=== PATIENT | female | born 1950 | race Caucasian/White ===

== ENCOUNTER 2017-02-23 20:56 | Outpatient (CLI) | payer OTHER | END 2017-02-23 20:57 | disposition EMS.NT | LOC: EMS 20:56 | PROVIDERS: ATTEND Surgery | DX: R40.20 Unspecified coma (principal) ==

== ENCOUNTER 2019-03-06 13:53 | Inpatient (IN) | payer MEDICARE, OTHER ==
--- NOTE | 2019-03-06 14:29 | XRAY Report ---
Reason: L knee pain Procedure Date: 03/06/2019 Accession Number: [id number] / [id number] Procedure: XR - Knee 4 View LT CPT Code: FULL RESULT: EXAM: LEFT KNEE RADIOGRAPHY EXAM DATE: 03/06/2019 02:19 PM. CLINICAL HISTORY: L knee pain. Dir. Fallot on to left kneecap COMPARISON: None. TECHNIQUE: 4 views. FINDINGS: Bones: Mildly comminuted, predominately transverse patellar fracture with between 2-3 cm of distraction between the 2 predominant fragments. Joints: Evidence of a joint effusion. Medial and lateral compartments appear unremarkable. Soft Tissues: Anterior soft tissue swelling. IMPRESSION: 1. Mildly comminuted, substantially displace/distracted patellar fracture. 2. Anterior soft tissue swelling and joint effusion. RADIA
--- NOTE | 2019-03-06 14:50 | ED Physician Documentation ---
PD HPI LOWER EXT INJURY - Stated complaint Stated Complaint: LEFT KNEE PX - Chief complaint Chief Complaint: Ext Problem - History obtained from History obtained from: Patient - History of Present Illness PD HPI LOW EXT INJURY LOCATION: Left, Knee Type of injury: Fall Where injury occurred: Home Timing - onset: Enter time (1300), Yesterday Timing - duration: Days (1) Timing - details: Abrupt onset, Still present Improved by: Rest, Ice, Immobilization Worsened by: Moving, Palpating Associated symptoms: Swelling. No: Weakness, Numbness Contributing factors: No: Anticoagulated, Prior ortho surgery, Prosthetic joint, Work related Similar symptoms before: Has not had sx before Recently seen: Not recently seen - Additional information Additional information: 69-year-old type I diabetic with a fall yesterday in her garage onto concrete has a lot of swelling to the left knee and she is unable to bear weight without significant pain she is unable to straighten her leg. She is fallen 4 times since. She is at home and she has now come into the emergency department for car luation. Review of Systems Constitutional: denies: Fever, Chills, Myalgias, Fatigue Eyes: denies: Decreased vision Ears: denies: Ear pain Nose: reports: Congestion. denies: Rhinorrhea / runny nose Throat: denies: Sore throat Cardiac: denies: Chest pain / pressure, Palpitations Respiratory: denies: Dyspnea, Cough GI: denies: Abdominal Pain, Nausea, Vomiting : denies: Dysuria, Frequency Skin: denies: Rash Musculoskeletal: reports: Extremity pain, Joint pain, Extremity swelling, Joint swelling, Pain with weight bearing. denies: Neck pain, Back pain Neurologic: denies: Generalized weakness, Focal weakness, Numbness PD PAST MEDICAL HISTORY - Past Medical History Endocrine/Autoimmune: Type 1 diabetes - Past Surgical History Past Surgical History: No - Present Medications Home Medications: Ambulatory Orders Medication Instructions Recorded Confirmed Insulin Aspart (Vial) [NovoLOG] 01/24/15 01/24/15 Insulin Glargine,Hum.rec.anlog 14 units SQ DAILY 01/24/15 11/01/15 [Lantus] - Allergies Allergies/Adverse Reactions: Allergies Allergy/AdvReac Type Severity Reaction Status Date / Time No Known Drug Allergies Allergy Verified 11/01/15 08:52 - Social History Does the pt smoke?: No Smoking Status: Never smoker Does the pt drink ETOH?: Yes Does the pt have substance abuse?: No PD ED PE NORMAL - Vitals Vital signs reviewed: Yes (tachy ) - General General: Alert and oriented X 3, No acute distress, Well developed/nourished - HEENT HEENT: Atraumatic, PERRL, EOMI - Neck Neck: Supple, no meningeal sign, No bony TTP - Cardiac Cardiac: RRR, No murmur, Other (tachy to 100) - Respiratory Respiratory: No respiratory distress, Clear bilaterally - Abdomen Abdomen: Soft, Non tender - Back Back: No CVA TTP, No spinal TTP - Derm Derm: Normal color, Warm and dry, No rash - Extremities Extremities: Other (There is a soft tissue defect over the patella on the left with a wide depression. The knee is swollen in general and the patient is unable to extend her lower extremity. The medial and lateral collateral ligaments are stable to testing. distal n/v is intact. ) - Neuro Neuro: Alert and oriented X 3, battery vent plug inserter 2-12 intact, No motor deficit, No sensory deficit, Normal speech Eye Opening: Spontaneous Motor: Obeys Commands Verbal: Oriented GCS Score: 15 - Psych Psych: Normal mood, Normal affect Results - Vitals Vitals: Vital Signs - 24 hr 03/06/19 14:03 Temperature 36.3 C L Heart Rate 102 H Respiratory 20 Rate Blood Pressure 128/79 O2 Saturation 100 Oxygen O2 Source Room air - Rads (name of study) knee Radiology: Prelim report reviewed (Impression: 1. Mildly comminuted, substantially displaced/distracted patellar fracture. 2 Anterior soft tissue swelling and joint effusion.), EMP read indepedently, See rad report PD MEDICAL DECISION MAKING - ED course Complexity details: reviewed results, re-evaluated patient, considered differential, d/w patient, d/w senior professional services consultant (DR. Helm reviews films and asks to have hospitalist admit patient with diabetes for surgery in am. ) ED course: 69-year-old female is had a fall at home landing on her left patella and she has a widely distracted patellar fracture. She is unable to extend her leg. She has had 3 falls since she did this at home. Dr. Helm is consulted in the case and recommends admitting patient to the hospital overnight on the hospitalist service for control of her diabetes and making the patient n.p.o. for preparation for surgery in a.m. Departure - Departure Disposition: ED Place in Observation Clinical Impression: Patellar fracture Qualifiers: Encounter type: initial encounter Fracture type: closed Fracture morphology: transverse Fracture alignment: displaced Laterality: left Qualified Code(s): S82.032A - Displaced transverse fracture of left patella, initial encounter for closed fracture Condition: Stable
[2019-03-06 16:15] LABS: BASOPHILS % (AUTO) 0.3 %; EOSINOPHILS % (AUTO) 0.6 %; HGB - HEMOGLOBIN 12.7 g/dL (12.0-16.0); LYMPHOCYTES % (AUTO) 15.3 %; MEAN CORPUSCULAR HGB CONC 32.2 g/dL (32.0-36.0); MEAN CORPUSCULAR VOLUME 96.1 fL (81.0-99.0); MEAN PLATELET VOLUME 9.3 fL (7.9-10.8); MONOCYTES # (AUTO) 0.6 10^3/uL (0.0-1.0); MONOCYTES % (AUTO) 8.9 %; NEUTROPHILS # (AUTO) 4.9 10^3/uL (1.5-6.6); NEUTROPHILS % (AUTO) 74.6 %; PLT - PLATELET COUNT 269 10^3/uL (130-450); RED CELL DISTRIBUTION WIDTH 12.8 % (12.0-15.0); WHITE BLOOD COUNT 6.5 x10^3/uL (4.8-10.8)
[2019-03-06 16:30] LABS: ALBUMIN 4.3 g/dL (3.2-5.5); ALBUMIN/GLOBULIN RATIO 1.5 (1.0-2.2); BILIRUBIN,TOTAL 0.9 mg/dL (0.2-1.0); CALCIUM 9.2 mg/dL (8.5-10.3); CREATININE 0.9 mg/dL (0.4-1.0); TOTAL PROTEIN 7.2 g/dL (6.7-8.2)
[2019-03-06] MEDS ORDERED: MORPHINE 2 MG/ML CARPUJECT IVP PRN (16:52)
[2019-03-06] MEDS ORDERED: SODIUM CHLORIDE FLUSH 0.9% 10 ML SYRINGE IVP PRN (16:52)
[2019-03-06] MEDS ORDERED: ONDANSETRON 4 MG/2 ML VIAL IVP PRN (16:52)
[2019-03-06] MEDS ORDERED: ZOLPIDEM 5 MG TABLET PO PRN (16:52)
[2019-03-06 17:28] LABS: HB2 TOTAL 12.8 g/dL; HEMOGLOBIN A1C 0.55 g/dL; HEMOGLOBIN A1C % 6.1 % (4.6-6.2)
[2019-03-06] MEDS ORDERED: SODIUM CHLORIDE 0.9% 1,000 ML IV ONE (17:51)
--- NOTE | 2019-03-06 17:52 | HISTORY & PHYSICAL EXAMINATION ---
Chief Complaint - Chief Complaint Chief Complaint: fall and left knee pain History of Present Illness - History of Present Illness HPI Comment/Other: Ms. Jimenez is a 69-year-old female with a PMH significant for type I diabetic, who present ER complain of fall and left knee pain. pt report she had trip and fall on yesterday on her garage onto concrete, and landed on left knee. Pt report she was unable to bear weight and swelling on the left knee. She report she is fallen 4 times after she first had knee injury. Pt denies hitting head or other injuries. she denies any cardiac medical history. Xray of left knee reveals mildly comminuted, substantially displace/distracted patellar fracture, anterior soft tissue swelling and joint effusion. Lat test except slight elevated glucose was unremarkable. pt has no other complaints. Orthopedics was called and planned to have procedure on tomorrow. History - Past Medical History Endocrine/Autoimmune: reports: Type 1 diabetes MRSA Hx?: No - Family & Social History Social History Notes: pt denies hx of cigarette smoker, occasionally alcohol drinker but without alcohol addiciton issur, denies drug problem. - POLST POLST Status: Full Code Meds/Allgy - Home Medications Home Medications: Ambulatory Orders Medication Instructions Recorded Confirmed Insulin Aspart (Vial) [NovoLOG] 2 - 6 unit SQ AC 01/24/15 03/06/19 Insulin Glargine,Hum.rec.anlog 14 units SQ DAILY 01/24/15 03/06/19 [Lantus] - Allergies Allergies/Adverse Reactions: Allergies Allergy/AdvReac Type Severity Reaction Status Date / Time No Known Drug Allergies Allergy Verified 11/01/15 08:52 Review of Systems - Constitutional Constitutional: denies: Fatigue, Fever, Chills, Malaise, Weakness, Poor appetite, Diaphoresis, Night sweats - Eyes Eyes: denies: Pain, Irritation, Amaurosis, Blurred vision, Spots in vision, Field loss, Vision loss, Dipolpia - Ears, Nose & Throat Ears, Nose & Throat: denies: Ear pain, Hearing loss, Hearing aids, Tinnitus, Vertigo, Nasal pain, Nasal discharge, Nosebleeds, Nasal obstruction, Nasal congestion, Postnasal drainage, Dentures, Sore throat, Hoarseness, Mouth lesions, Bleeding gums - Cardiovascular Cariovascular: denies: Irregular heart rate, Palpitations, Chest pain, Edema, Lightheadedness, Syncope, Exertional dyspnea, Decr. exercise tolerance - Respiratory Respiratory: denies: Cough, Sputum production, Wheezing, Snoring, Hemoptysis, Orthopnea, SOB at rest, SOB with exertion - Gastrointestinal Gastrointestinal: denies: Abdominal pain, Abdominal distention, Constipation, Diarrhea, Change in bowel habits, Rectal bleeding, Black stools, Bloody stools, Nausea, Vomiting, Bile emesis, Johnny blood emesis, Coffee grounds emesis, Reflux/heartburn - Genitourinary Genitourinary: denies: Dysuria, Frequency, Urgency, Hematuria, Incontinence, Flank pain, Nocturia, Urethral discharge - Musculoskeletal Musculoskeletal: reports: Limited range of motion, Joint pain, Joint swelling. denies: Muscle pain, Back pain, Muscle aches, Stiffness, Muscle weakness, Gout - Integumentary Integumentary: denies: Rash, Pruritis, Lesions, Dryness, Lumps, Acne, Pigment changes, Nail changes - Neurological Neurological: denies: General weakness, Focal weakness, Headache, Dizziness, Nu mbness, Memory problems, Pre-existing deficit, Abnormal gait, Seizures, Incoordination, Slurred speech - Psychiatric Psychiatric: denies: Depression, Anxiety, Suicidal, Delusions, Hallucinations, Homicidal - Endocrine Endocrine: denies: Polyuria, Polydypsia, Polyphagia, Intolerance to cold - Hematologic/Lymphatic Hematologic/Lymphatic: denies: Anemia, Bruising, Petechiae, Blood clots, Lymphadenopathy, Bleeding tendencies Exam - Vital Signs Vital Signs: Vital Signs x48h Temp Pulse Resp BP Pulse Ox 03/06/19 16:25 36.7 C 76 20 128/62 100 03/06/19 14:03 36.3 C L 102 H 20 128/79 100 - Physical Exam General Appearance: positive: No acute distress, Alert. negative: Lethargic Eyes Bilateral: positive: Normal inspection, PERRL, No lid inflammation, Conjunctivae nml ENT: positive: ENT inspection nml, Pharynx nml, No signs of dehydration. negative: Purulent nasal drainage, Pharyngeal erythema, Oral lesions Neck: positive: Nml inspection, Thyroid nml, No JVD, Trachea midline. negative: Thyromegaly, Lymphadenopathy (R), Lymphadenopathy (L), Stiff neck, Swelling/bruising, Tracheal deviation Respiratory: positive: Chest non-tender, No respiratory distress, Breath sounds nml. negative: Wheezes, Rales, Rhonchi Cardiovascular: positive: Regular rate & rhythm, No murmur, No gallop. negative: Irregularly irregular, Extrasystoles, Tachycardia, Bradycardia, JVD present, Systolic murmur, Diastolic murmur Peripheral Pulses: positive: 2+ Abdomen: positive: Non-tender, No organomegaly, Nml bowel sounds, No distention. negative: Tenderness, Guarding, Rebound Back: positive: Nml inspection. negative: CVA tenderness (R), CVA tenderness (L) Skin: positive: Color nml, No rash, Warm, Dry. negative: Cyanosis, Diaphoresis, Pallor, Skin rash Extremities: positive: Other (left knee with mild to moderate swelling but without erythema and Limited ROM on left knee.). negative: Full ROM, Pedal edema, Calf tenderness, Autumn's sign/cords Neurologic/Psychiatric: positive: Oriented x3, Sensation nml, Mood/affect nml. negative: Weakness, Sensory loss, Facial droop, Slurred/abnml speech, Depressed mood/affect Sepsis Event Note (H) - Evaluation Current Stage of Sepsis: Ruled out Conclusion/Plan - Problem List (1) Patellar fracture Conclusion/Plan: pt had fall, and landed on left knee. left knee has mild to moderate swelling, pt can not bear weight on left leg. Xray reveals patellar fracture. orthopedics surgeon was called, plan to have procedure on tomorrow pain control NPO except meds after midnight IVF after midnight PT/OT after surgery DVT prophylaxis per surgeon, now with lovenox pt has no cardiac medical history, revised cardiac risk index for preoperative risk suggest 6% Qualifiers: Encounter type: initial encounter Fracture type: closed Fracture morphology: transverse Fracture alignment: displaced Laterality: left Qualified Code(s): S82.032A - Displaced transverse fracture of left patella, initial encounter for closed fracture (2) Diabetes type 1, controlled Conclusion/Plan: pt has hx of DM1, she take 14 lantus on daily, reconcile lantus start slide scale, ACHS, hypoglycemia protocol check A1C (3) Fall Conclusion/Plan: fall precaution, now pain control as well. consult with PT/OT (4) Full code status Conclusion/Plan: pt request full code clearly - Lab Results Fish Bones: 03/06/19 16:07 03/06/19 16:07 Core Measures - Anticipated LOS I expect patient to be DC'd or transferred within 96 hours.: Yes - DVT/VTE - Prophylaxis VTE/DVT Device ordered at admit?: Yes VTE/DVT Prophylaxis med ordered at admit?: Yes
--- NOTE | 2019-03-06 18:47 | PROVIDER PROGRESS NOTE ---
Subjective - Prog Note Date Prog Note Date: 03/06/19 Prog Note Time: 18:41 - Subjective Pt reports feeling: Worse (Painful left knee after a fall on flexed knee) Objective - Vital Signs/Intake & Output Vital Signs: Vital Signs x48h Temp Pulse Pulse Resp BP BP Pulse Ox 03/06/19 17:52 36.8 C 91 20 128/77 100 03/06/19 16:25 36.7 C 76 20 128/62 100 03/06/19 14:03 36.3 C L 102 H 20 128/79 100 - Lab Results Fish Bones: 03/06/19 16:07 03/06/19 16:07 Other Labs: Lab Results x24hrs 03/06/19 03/06/19 03/06/19 Range/Units 16:16 16:07 16:07 WBC (4.8-10.8) x10^3/uL RBC (4.20-5.40) 10^6/uL Hgb (12.0-16.0) g/dL Hct (37.0-47.0) % MCV (81.0-99.0) fL MCH (27.0-31.0) pg MCHC (32.0-36.0) g/dL RDW (12.0-15.0) % Plt Count (130-450) 10^3/uL MPV (7.9-10.8) fL Neut # (Auto) (1.5-6.6) 10^3/uL Lymph # (Auto) (1.5-3.5) 10^3/uL [place] # (Auto) (0.0-1.0) 10^3/uL Eos # (Auto) (0.0-0.7) 10^3/uL Baso # (Auto) (0.0-0.1) 10^3/uL Absolute Nucleated RBC x10^3/uL Nucleated RBC % /100WBC Sodium 140 (135-145) mmol/L Potassium 3.9 (3.5-5.0) mmol/L Chloride 100 L (101-111) mmol/L Carbon Dioxide 28 (21-32) mmol/L Anion Gap 12.0 (6-13) BUN 13 (6-20) mg/dL Creatinine 0.9 (0.4-1.0) mg/dL Estimated GFR (MDRD) 62 L (>89) Glucose 187 H (70-100) mg/dL Glycated Hemoglobin 6.1 (4.6-6.2) % Estim Average Glucose 128 H (70-100) Calcium 9.2 (8.5-10.3) mg/dL Total Bilirubin 0.9 (0.2-1.0) mg/dL AST 23 (10-42) IU/L ALT 17 (10-60) IU/L Alkaline Phosphatase 57 (42-121) IU/L Troponin I High Sens 6.4 (2.3-14.8) pg/mL Total Protein 7.2 (6.7-8.2) g/dL Albumin 4.3 (3.2-5.5) g/dL Globulin 2.9 (2.1-4.2) g/dL Albumin/Globulin Ratio 1.5 (1.0-2.2) 03/06/19 Range/Units 16:07 WBC 6.5 (4.8-10.8) x10^3/uL RBC 4.10 L (4.20-5.40) 10^6/uL Hgb 12.7 (12.0-16.0) g/dL Hct 39.4 (37.0-47.0) % MCV 96.1 (81.0-99.0) fL MCH 31.0 (27.0-31.0) pg MCHC 32.2 (32.0-36.0) g/dL RDW 12.8 (12.0-15.0) % Plt Count 269 (130-450) 10^3/uL MPV 9.3 (7.9-10.8) fL Neut # (Auto) 4.9 (1.5-6.6) 10^3/uL Lymph # (Auto) 1.0 L (1.5-3.5) 10^3/uL [place] # (Auto) 0.6 (0.0-1.0) 10^3/uL Eos # (Auto) 0.0 (0.0-0.7) 10^3/uL Baso # (Auto) 0.0 (0.0-0.1) 10^3/uL Absolute Nucleated RBC 0.00 x10^3/uL Nucleated RBC % 0.0 /100WBC Sodium (135-145) mmol/L Potassium (3.5-5.0) mmol/L Chloride (101-111) mmol/L Carbon Dioxide (21-32) mmol/L Anion Gap (6-13) BUN (6-20) mg/dL Creatinine (0.4-1.0) mg/dL Estimated GFR (MDRD) (>89) Glucose (70-100) mg/dL Glycated Hemoglobin (4.6-6.2) % Estim Average Glucose (70-100) Calcium (8.5-10.3) mg/dL Total Bilirubin (0.2-1.0) mg/dL AST (10-42) IU/L ALT (10-60) IU/L Alkaline Phosphatase (42-121) IU/L Troponin I High Sens (2.3-14.8) pg/mL Total Protein (6.7-8.2) g/dL Albumin (3.2-5.5) g/dL Globulin (2.1-4.2) g/dL Albumin/Globulin Ratio (1.0-2.2) - Other Results/Comments Other Results/Comments: EXAM: Left knee: markedly swollen and ecchymotic. Palpable gap in mid- patella. Ligament - stable. N/V ok distally Sepsis Event Note (H) - Evaluation Current Stage of Sepsis: Ruled out Assessment/Plan - Problem List (1) Patellar fracture Impression: Closed, distracted left patella fracture PLAN: To OR in AM for tension band wiring of fracture. Risk and benefits of surgery explained and all questions answered. Wish to proceed with surgery. Leg marked. Consent signed. FULL NOTE DICTATED Qualifiers: Encounter type: initial encounter Fracture type: closed Fracture morphology: transverse Fracture alignment: displaced Laterality: left Qualified Code(s): S82.032A - Displaced transverse fracture of left patella, initial encounter for closed fracture
--- NOTE | 2019-03-06 19:03 | CONSULTATION NOTE ---
DATE OF SERVICE: 03/06/2019 Physician: Aj Helm MD REFERRING PHYSICIAN: Dr. Dave Roche of the Emergency Room Department. CHIEF COMPLAINT: "My left knee hurts." HISTORY OF PRESENT ILLNESS: Patient is a 69-year-old female, type 1 diabetic, who is here visiting family from [facility] in the [facility]. She apparently fell onto a flexed knee left side o n the cement floor of a garage yesterday injuring her left knee. She noted some immediate swelling a nd mild ecchymosis around the anterior aspect of the left knee. Her pain and swelling did not resolv e after observation overnight. She has been able to walk on her knee, but it has given out several w hile she was walking after this injury. She denies any prior problems with her knee. No other injur ies occurred. There has been no loss of consciousness or nausea, vomiting, or other problems. No di stal weakness or numbness noted either. PHYSICAL EXAMINATION: The left knee today shows 2+ swelling in the anterior aspect of the knee. Min imal knee effusion appreciated, however. There is no break in the skin, though there is some mild ec chymoses in the medial parapatellar region. The patient has a palpable gap in her patella on palpati on. This is somewhat tender as well. Range of motion was not tested in view of her injury. Ligamen ts, however, appear to be stable on testing today. Neurovascularly intact distally. Range of motion also was not performed in lieu of her injury. X-RAYS: Show a mild comminution transverse mid patellar fracture with marked distraction of the frag ments. ASSESSMENT 1. Closed, distracted, mildly comminuted transverse left mid patellar fracture. 2. Type 1 diabetic. PLAN: Since the patient had a milkshake at around noon today, we will plan on proceeding with surgic al fixation of her fracture in the morning. We will plan on doing a tension band wiring of her fract ure after we were able to reduce this in the operating room. The diagnosis as well as treatment opti ons were explained to the patient and her . The risks and benefits of surgery were also expla ined, including anesthesia risks, infection, blood loss, nerve damage, hardware failure, continued pa in in the knee. All of her questions were answered. She wishes to proceed with surgery as planned. Her leg was then marked. Consent signed. TD: 03/06/2019 18:38
[2019-03-06] MEDS: INSULIN ASPART 300 UNIT/3 ML PEN SUBQ SCH ×2 (19:05→21:47)
[2019-03-06] MEDS: SODIUM CHLORIDE FLUSH 0.9% 10 ML SYRINGE IVP SCH (19:31)
[2019-03-06] MEDS: FAMOTIDINE 20 MG TABLET PO SCH (21:35)
[2019-03-07] MEDS: oxyCODONE 5 MG TABLET PO PRN ×2 (00:59→05:00)
[2019-03-07] MEDS: SODIUM CHLORIDE 0.9% 1,000 ML IV SCH ×3 (01:01→15:59)
[2019-03-07] MEDS: SODIUM CHLORIDE FLUSH 0.9% 10 ML SYRINGE IVP SCH ×3 (01:01→16:00)
[2019-03-07 05:16] LABS: BASOPHILS % (AUTO) 0.9 %; EOSINOPHILS # (AUTO) 0.1 10^3/uL (0.0-0.7); EOSINOPHILS % (AUTO) 3.1 %; HGB - HEMOGLOBIN 11.1 g/dL (12.0-16.0); LYMPHOCYTES # (AUTO) 1.2 10^3/uL (1.5-3.5); LYMPHOCYTES % (AUTO) 25.2 %; MEAN CORPUSCULAR HEMOGLOBIN 30.6 pg (27.0-31.0); MEAN CORPUSCULAR HGB CONC 31.9 g/dL (32.0-36.0); MEAN CORPUSCULAR VOLUME 95.9 fL (81.0-99.0); MEAN PLATELET VOLUME 9.6 fL (7.9-10.8); MONOCYTES # (AUTO) 0.6 10^3/uL (0.0-1.0); MONOCYTES % (AUTO) 13.3 %; NEUTROPHILS # (AUTO) 2.6 10^3/uL (1.5-6.6); NEUTROPHILS % (AUTO) 57.3 %; PLT - PLATELET COUNT 231 10^3/uL (130-450); RED BLOOD COUNT 3.63 10^6/uL (4.20-5.40); RED CELL DISTRIBUTION WIDTH 12.5 % (12.0-15.0); WHITE BLOOD COUNT 4.6 x10^3/uL (4.8-10.8)
[2019-03-07 05:25] LABS: CALCIUM 8.6 mg/dL (8.5-10.3); CREATININE 0.8 mg/dL (0.4-1.0)
[2019-03-07] MEDS: INSULIN ASPART 300 UNIT/3 ML PEN SUBQ SCH ×4 (07:55→21:28)
[2019-03-07] MEDS: INSULIN GLARGINE 300 UNIT/3 ML PEN SUBQ SCH (08:26)
[2019-03-07] MEDS: FAMOTIDINE 20 MG TABLET PO SCH (08:26)
[2019-03-07] MEDS: POLYETHYLENE GLYCOL 3350 17 GM PACKET PO SCH ×2 (08:32→21:29)
[2019-03-07] MEDS ORDERED: INSULIN GLARGINE 300 UNIT/3 ML PEN SUBQ SCH (09:00)
--- NOTE | 2019-03-07 09:47 | ANESTHESIA ---
Pre-Anesthesia VS, & Labs - Diagnosis Left patellar fracture - Procedure Left ORIF patellar fracture Vital Signs: Temp Pulse Resp BP Pulse Ox 36.8 C 76 10 L 117/66 93 03/07/19 08:00 03/07/19 08:00 03/07/19 08:00 03/07/19 08:00 03/07/19 08:00 Height 5 ft 1 in Weight (kg) 55 kg Body Mass Index 24.1 - NPO >8 hours - Is Patient ?: Not Applicable - Lab Results Current Lab Results: Laboratory Tests 03/07/19 07:51: POC Whole Bld Glucose 128 H 03/07/19 04:50: Sodium 140, Potassium 4.0, Chloride 105, Carbon Dioxide 27, Anion Gap 8.0, BUN 14, Creatinine 0.8, Estimated GFR (MDRD) 72 L, Glucose 120 H, Calcium 8.6, Magnesium 2.0 03/07/19 04:50: WBC 4.6 L, RBC 3.63 L, Hgb 11.1 L, Hct 34.8 L, MCV 95.9, MCH 30.6, MCHC 31.9 L, RDW 12.5, Plt Count 231, MPV 9.6, Neut # (Auto) 2.6, Lymph # (Auto) 1.2 L, [place] # (Auto) 0.6, Eos # (Auto) 0.1, Baso # (Auto) 0.0, Absolute Nucleated RBC 0.00, Nucleated RBC % 0.0 03/06/19 21:40: POC Whole Bld Glucose 196 H 03/06/19 16:16: Glycated Hemoglobin 6.1, Estim Average Glucose 128 H 03/06/19 16:07: Troponin I High Sens 6.4 03/06/19 16:07: Sodium 140, Potassium 3.9, Chloride 100 L, Carbon Dioxide 28, Anion Gap 12.0, BUN 13, Creatinine 0.9, Estimated GFR (MDRD) 62 L, Glucose 187 H , Calcium 9.2, Total Bilirubin 0.9, AST 23, ALT 17, Alkaline Phosphatase 57, Total Protein 7.2, Albumin 4.3, Globulin 2.9, Albumin/Globulin Ratio 1.5 03/06/19 16:07: WBC 6.5, RBC 4.10 L, Hgb 12.7, Hct 39.4, MCV 96.1, MCH 31.0, MCHC 32.2, RDW 12.8, Plt Count 269, MPV 9.3, Neut # (Auto) 4.9, Lymph # (Auto) 1.0 L, [place] # (Auto) 0.6, Eos # (Auto) 0.0, Baso # (Auto) 0.0, Absolute Nucleated RBC 0.00, Nucleated RBC % 0.0 Fish Bones: 03/07/19 04:50 03/07/19 04:50 Home Medications and Allergies Active Medications Enoxaparin Sodium (Lovenox) 40 mg SUBQ DAILY [facility] Famotidine (Pepcid) 20 mg PO DAILY [facility] Last Admin: 03/07/19 08:26 Dose: 20 mg Sodium Chloride (Normal Saline 0.9%) 1,000 mls @ 100 mls/hr IV .Q10H [facility] Stop: 03/07/19 20:59 Last Admin: 03/07/19 01:01 Dose: 100 mls/hr Cefazolin Sodium 2 gm/ Sodium (Chloride) 100 mls @ 200 mls/hr IV ONCE [facility] Stop: 03/07/19 15:01 Insulin Aspart (Novolog) 1 - 9 unit SUBQ 0800,1200,1700,2100 [facility]; Protocol Last Admin: 03/07/19 07:55 Dose: Not Given Insulin Glargine (Lantus Solostar) 10 unit SUBQ DAILY [facility] Last Admin: 03/07/19 08:26 Dose: 10 unit Morphine Sulfate (Morphine (Carpuject)) 2 mg IVP Q2HR PRN PRN Reason: Pain 8 to 10 Ondansetron HCl (Zofran Inj) 4 mg IVP Q6HR PRN PRN Reason: Nausea / Vomiting Last Admin: 03/07/19 08:26 Dose: 4 mg Oxycodone HCl (Roxicodone) 5 mg PO Q4HR PRN PRN Reason: Pain 5 to 7 Last Admin: 03/07/19 05:00 Dose: 5 mg Polyethylene Glycol (Miralax) 17 gm PO DAILY [facility] Last Admin: 03/07/19 08:32 Dose: Not Given Sodium Chloride (Normal Saline Flush 0.9%) 10 ml IVP PRN PRN PRN Reason: NEEDED PER PROVIDER ORDERS Sodium Chloride (Normal Saline Flush 0.9%) 10 ml IVP 0100,0900,1700 [facility] Last Admin: 03/07/19 08:32 Dose: Not Given Zolpidem Tartrate (Ambien) 5 mg PO QPM PRN PRN Reason: Insomnia Insulin Aspart (Vial) [NovoLOG] 2 - 6 unit SQ AC 01/24/15 Insulin Glargine,Hum.rec.anlog [Lantus] 14 units SQ DAILY 01/24/15 Allergies/Adverse Reactions: Allergies Allergy/AdvReac Type Severity Reaction Status Date / Time No Known Drug Allergies Allergy Verified 11/01/15 08:52 Anes History & Medical History - Anesthetic History Anesthesia Complications: reports: No previous complications - Medical History Cardiovascular: reports: None Pulmonary: reports: None Gastrointestinal: reports: None Urinary: reports: None Neuro: reports: None Musculoskeletal: reports: None Endocrine/Autoimmune: reports: Type 1 diabetes (for 37 years) Blood Disorders: reports: None Skin: reports: None Smoking Status: Former smoker (37 years ago) Psychosocial: reports: Alcohol (2 glasses of wine per day) - Surgical History Eyes Ears Nose Throat (EENT): Other (thyroid nodule removal) Orthopedic: Other (right arm ORIF fracture) Plan Anesthesia Type: General, Spinal Consent for Procedure(s) Verified and Reviewed: Yes Code Status: Attempt Resuscitation ASA classification: 2-Mild systemic disease Is this case an emergency?: No
[2019-03-07] MEDS ORDERED: ceFAZolin 2 GM in SODIUM CHLORIDE 0.9% MINIBAG 100 ML IV SCH (10:00)
[2019-03-07] MEDS ORDERED: ceFAZolin 1 GM VIAL ONE (12:39)
[2019-03-07] MEDS ORDERED: LACTATED RINGERS 1,000 ML IV ONE ×2 (12:52→14:00)
[2019-03-07] MEDS ORDERED: ENOXAPARIN 40 MG/0.4 ML SYRINGE SUBQ SCH (13:00)
--- NOTE | 2019-03-07 13:18 | PROVIDER PROGRESS NOTE ---
Subjective - Prog Note Date Prog Note Date: 03/07/19 Prog Note Time: 13:15 - Subjective Pt reports feeling: No change Subjective: Rylee is looking forward to getting her surgery done later today. She has ongoing nausea with intermittent emesis. She has no other new symptoms. Current Medications - Current Medications Current Medications: Active Medications Acetaminophen (Tylenol) 975 mg PO Q6HR JASON Aspirin (Rogelio) 325 mg PO BIDWM JASON Calcium Carbonate/Glycine (Tums) 500 mg PO BID JASON Cholecalciferol (Vitamin D3) 2,000 unit PO DAILY JASON Famotidine (Pepcid) 20 mg PO DAILY JASON Sodium Chloride (Normal Saline 0.9%) 1,000 mls @ 100 mls/hr IV .Q10H JASON Insulin Aspart (Novolog) 1 - 9 unit SUBQ 0800,1200,1700,2100 JASON; Protocol Insulin Glargine (Lantus Solostar) 10 unit SUBQ DAILY JASON Morphine Sulfate (Morphine (Carpuject) 2 mg IVP Q2HR PRN Ondansetron HCl (Zofran Inj) 4 mg IVP Q6HR PRN Oxycodone HCl (Roxicodone) 5 mg PO Q4HR PRN Polyethylene Glycol (Miralax) 17 gm PO DAILY JASON Prochlorperazine Edisylate (Compazine Inj) 10 mg IVP Q6HR PRN Zolpidem Tartrate (Ambien) 5 mg PO QPM PRN HOME meds: Insulin Aspart (Vial) [NovoLOG] 2 - 6 unit SQ AC 01/24/15 Insulin Glargine,Hum.rec.anlog [Lantus] 14 units SQ DAILY 01/24/15 Objective - Vital Signs/Intake & Output Reviewed Vital Signs: Yes Vital Signs: Vital Signs x48h Temp Pulse Resp BP Pulse Ox 03/07/19 08:00 36.8 C 76 10 L 117/66 93 Intake & Output: Intake & Output 03/04/19 03/05/19 03/06/19 03/07/19 23:59 23:59 23:59 23:59 Intake Total 590 998.333 Balance 590 998.333 - Objective General Appearance: positive: No acute distress, Alert Eyes Bilateral: positive: PERRL, No lid inflammation ENT: positive: Pharynx nml, No signs of dehydration Neck: positive: Thyroid nml, No JVD, Trachea midline Respiratory: positive: Chest non-tender, No respiratory distress, Breath sounds nml Cardiovascular: positive: Regular rate & rhythm, No murmur, No gallop Peripheral Pulses: 1+ Radial (R), 1+ Radial (L) Abdomen: positive: Non-tender, Nml bowel sounds Back: positive: Nml inspection Skin: positive: Color nml, No rash, Warm, Dry Extremities: positive: Pedal edema, Joint swelling (left knee swelling) Neurologic/Psychiatric: positive: Oriented x3, CN's nml (2-12), Motor nml, Sensation nml, Depressed mood/affect Reflexes: Bicep (R): 3+, Bicep (L): 3+ - Lab Results Fish Bones: 03/08/19 05:25 03/08/19 05:25 Other Labs: Lab Results x24hrs 03/07/19 03/07/19 03/07/19 Range/Units 11:27 07:51 04:50 WBC (4.8-10.8) x10^3/uL RBC (4.20-5.40) 10^6/uL Hgb (12.0-16.0) g/dL Hct (37.0-47.0) % MCV (81.0-99.0) fL MCH (27.0-31.0) pg MCHC (32.0-36.0) g/dL RDW (12.0-15.0) % Plt Count (130-450) 10^3/uL MPV (7.9-10.8) fL Neut # (Auto) (1.5-6.6) 10^3/uL Lymph # (Auto) (1.5-3.5) 10^3/uL [place] # (Auto) (0.0-1.0) 10^3/uL Eos # (Auto) (0.0-0.7) 10^3/uL Baso # (Auto) (0.0-0.1) 10^3/uL Absolute Nucleated RBC x10^3/uL Nucleated RBC % /100WBC Sodium 140 (135-145) mmol/L Potassium 4.0 (3.5-5.0) mmol/L Chloride 105 (101-111) mmol/L Carbon Dioxide 27 (21-32) mmol/L Anion Gap 8.0 (6-13) BUN 14 (6-20) mg/dL Creatinine 0.8 (0.4-1.0) mg/dL Estimated GFR (MDRD) 72 L (>89) Glucose 120 H (70-100) mg/dL POC Whole Bld Glucose 173 H 128 H (70 - 100) mg/dL Glycated Hemoglobin (4.6-6.2) % Estim Average Glucose (70-100) Calcium 8.6 (8.5-10.3) mg/dL Magnesium 2.0 (1.7-2.8) mg/dL Total Bilirubin (0.2-1.0) mg/dL AST (10-42) IU/L ALT (10-60) IU/L Alkaline Phosphatase (42-121) IU/L Troponin I High Sens (2.3-14.8) pg/mL Total Protein (6.7-8.2) g/dL Albumin (3.2-5.5) g/dL Globulin (2.1-4.2) g/dL Albumin/Globulin Ratio (1.0-2.2) 03/07/19 03/06/19 03/06/19 Range/Units 04:50 21:40 16:16 WBC 4.6 L (4.8-10.8) x10^3/uL RBC 3.63 L (4.20-5.40) 10^6/uL Hgb 11.1 L (12.0-16.0) g/dL Hct 34.8 L (37.0-47.0) % MCV 95.9 (81.0-99.0) fL MCH 30.6 (27.0-31.0) pg MCHC 31.9 L (32.0-36.0) g/dL RDW 12.5 (12.0-15.0) % Plt Count 231 (130-450) 10^3/uL MPV 9.6 (7.9-10.8) fL Neut # (Auto) 2.6 (1.5-6.6) 10^3/uL Lymph # (Auto) 1.2 L (1.5-3.5) 10^3/uL [place] # (Auto) 0.6 (0.0-1.0) 10^3/uL Eos # (Auto) 0.1 (0.0-0.7) 10^3/uL Baso # (Auto) 0.0 (0.0-0.1) 10^3/uL Absolute Nucleated RBC 0.00 x10^3/uL Nucleated RBC % 0.0 /100WBC Sodium (135-145) mmol/L Potassium (3.5-5.0) mmol/L Chloride (101-111) mmol/L Carbon Dioxide (21-32) mmol/L Anion Gap (6-13) BUN (6-20) mg/dL Creatinine (0.4-1.0) mg/dL Estimated GFR (MDRD) (>89) Glucose (70-100) mg/dL POC Whole Bld Glucose 196 H (70 - 100) mg/dL Glycated Hemoglobin 6.1 (4.6-6.2) % Estim Average Glucose 128 H (70-100) Calcium (8.5-10.3) mg/dL Magnesium (1.7-2.8) mg/dL Total Bilirubin (0.2-1.0) mg/dL AST (10-42) IU/L ALT (10-60) IU/L Alkaline Phosphatase (42-121) IU/L Troponin I High Sens (2.3-14.8) pg/mL Total Protein (6.7-8.2) g/dL Albumin (3.2-5.5) g/dL Globulin (2.1-4.2) g/dL Albumin/Globulin Ratio (1.0-2.2) 03/06/19 03/06/19 03/06/19 Range/Units 16:07 16:07 16:07 WBC 6.5 (4.8-10.8) x10^3/uL RBC 4.10 L (4.20-5.40) 10^6/uL Hgb 12.7 (12.0-16.0) g/dL Hct 39.4 (37.0-47.0) % MCV 96.1 (81.0-99.0) fL MCH 31.0 (27.0-31.0) pg MCHC 32.2 (32.0-36.0) g/dL RDW 12.8 (12.0-15.0) % Plt Count 269 (130-450) 10^3/uL MPV 9.3 (7.9-10.8) fL Neut # (Auto) 4.9 (1.5-6.6) 10^3/uL Lymph # (Auto) 1.0 L (1.5-3.5) 10^3/uL [place] # (Auto) 0.6 (0.0-1.0) 10^3/uL Eos # (Auto) 0.0 (0.0-0.7) 10^3/uL Baso # (Auto) 0.0 (0.0-0.1) 10^3/uL Absolute Nucleated RBC 0.00 x10^3/uL Nucleated RBC % 0.0 /100WBC Sodium 140 (135-145) mmol/L Potassium 3.9 (3.5-5.0) mmol/L Chloride 100 L (101-111) mmol/L Carbon Dioxide 28 (21-32) mmol/L Anion Gap 12.0 (6-13) BUN 13 (6-20) mg/dL Creatinine 0.9 (0.4-1.0) mg/dL Estimated GFR (MDRD) 62 L (>89) Glucose 187 H (70-100) mg/dL POC Whole Bld Glucose (70 - 100) mg/dL Glycated Hemoglobin (4.6-6.2) % Estim Average Glucose (70-100) Calcium 9.2 (8.5-10.3) mg/dL Magnesium (1.7-2.8) mg/dL Total Bilirubin 0.9 (0.2-1.0) mg/dL AST 23 (10-42) IU/L ALT 17 (10-60) IU/L Alkaline Phosphatase 57 (42-121) IU/L Troponin I High Sens 6.4 (2.3-14.8) pg/mL Total Protein 7.2 (6.7-8.2) g/dL Albumin 4.3 (3.2-5.5) g/dL Globulin 2.9 (2.1-4.2) g/dL Albumin/Globulin Ratio 1.5 (1.0-2.2) ABX Reporting Has patient been on IV antibiotics over the past 48 hours?: No Assessment/Plan - Problem List (1) Patellar fracture Impression: -The patient had a mechanical fall in her garage while wearing crock shoes creating a very slippery surface. -She states that she landed directly on her left knee -Since the fall her left knee has had mild to moderate swelling and she could not bear weight on her left leg -Imaging confirmed a substantial displaced patellar fracture -Dr. Helm, orthopedic surgery is planning for surgery this afternoon Plan: Continue with pain control, NPO except meds until after surgery, continue IVFs, PT/OT after surgery, DVT prophylaxis per surgery Fall -Patient states that she had a mechanical fall in which she was in her garage (slippery floors), was wearing crock shoes and fell on her left knee -She states that she read on the internet that an injury to the knee should resolve in about 3 days, if not seek medical attention Plan: Continue with fall precautions, symptom management, follow post-op recommendations as per orthopedic surgery, await post-op PT/OT evaluation Nausea with vomiting -Started shortly after admission -Suspect from trauma, stress Plan: Continue to treat symptoms with Zofran, continue IVFs, monitor for improvement Alcohol use -Patient admits to drinking 1-2 glasses of red wine nightly -She feels that she has gone several days without any in the recent past -No prominent history of alcoholism Plan: Watch for withdrawal symptoms, especially if the patient stays greater than 48-72 hours Diabetes type 1, controlled -Hemoglobin A1C shows good control at 6.1% -Her usual schedule at home is Lantus 14 units in the AM, and carb counting to determine rapid acting coverage Plan: Continue carb controlled diet, SSI, Lantus at 10 units, and blood sugar checks, monitor for hypoglycemia Osteoporosis -Patient has a known history of this, first diagnosed in 2012 via a bone density survey -Likely the most likely contributing cause of this injury Plan: Continue to monitor, continue D3, suggest Fosomax, unless prior use Qualifiers: Qualified Code(s): S82.032A - Displaced transverse fracture of left patella, initial encounter for closed fracture
[2019-03-07] MEDS ORDERED: BUPIVACAINE 0.5%-EPI 1:200000 PF 10 ML VIAL ONE (13:42)
[2019-03-07] MEDS ORDERED: BUPIVACAINE 0.5%-EPI 1:200000 PF 30 ML VIAL SUBQ ONE (13:43)
--- NOTE | 2019-03-07 14:01 | OPERATIVE REPORT ---
Operative Report - General Admit Date: 03/06/19 Procedure Date: 03/07/19 Planned Procedure: ORIF of left patella fracture with tension band wire technique Pre-Op Diagnosis: Distracted left patella fracture Procedure Performed: ORIF left patella fracture with tension band wire technique Post Op Diagnosis: Same - Procedure Note Primary Surgeon: Leslie Helm MD Anesthesia Provider: Vinicius Kemp CRNA Anesthesia Technique: General LMA IV Fluids (mL): 800 Estimated Blood Loss (mL): 50 Complications: None - Other Other Information/Narrative: TT: 71 min
[2019-03-07] MEDS ORDERED: ACETAMINOPHEN 325 MG TABLET PO PRN (14:05)
[2019-03-07] MEDS ORDERED: ACETAMINOPHEN 1,000 MG/100 ML 100 ML IV PRN (14:05)
[2019-03-07] MEDS ORDERED: ONDANSETRON 4 MG/2 ML VIAL IVP PRN (14:05)
[2019-03-07] MEDS ORDERED: HYDROmorphone 0.5 MG/0.5 ML SYRINGE ONE (14:58)
[2019-03-07] MEDS ORDERED: ACETAMINOPHEN 1,000 MG/100 ML 100 ML IV ONE (14:58)
--- NOTE | 2019-03-07 15:16 | OPERATIVE REPORT ---
DATE OF SERVICE: 03/07/2019 Physician: Aj Helm MD PREOPERATIVE DIAGNOSIS: Distracted, displaced, closed left patellar fracture. POSTOPERATIVE DIAGNOSIS: Distracted, displaced, closed left patellar fracture. PROCEDURE PERFORMED: Open reduction and internal fixation of left patellar fracture using tension ba nd wire technique. SURGEON: Aj Helm MD ANESTHESIA: General. DESCRIPTION OF PROCEDURE: Patient was taken to the operating room on the morning of 03/07/2019, wher e she was placed under a general anesthetic in the supine position. We then applied a thigh pneumati c tourniquet to the left lower extremity. We then prepared and draped the left knee free in the usua l fashion for our procedure. After gravity exsanguination of the limb, we inflated the thigh pneumat ic tourniquet to 350 mmHg pressure. We then made a longitudinal anterior skin incision overlying the patellar fracture. We dissected down to the fracture and evacuated the fracture hematoma. We then irrigated the wound with saline. We inspected the joint and saw no other intraarticular pathology. The joint was also irrigated. At this point, we then used a diaz elevator to remove the periosteum of f the edges of both the proximal and distal patellar fracture fragment. We then did an open reductio n of the patellar fracture and held it in place with 2 towel clip reduction clamps. Fluoroscopic vie w in AP and lateral projection showed a good reduction of our fracture. Next, we proceeded to place 2 longitudinal 0.062 inch smooth Frederick wires parallel to each other through the patella from infe rior to superior direction. Fluoroscopic views again showed the reduction still to be maintained of the fracture. It also showed satisfactory position of our K-wires in an extraarticular fashion trans versely in the fracture and nearly parallel. At this point, the lateral view was inspected and again showed good reduction of the fracture in the lateral position with the articulating surface of the p atella reestablished with minimal step-off. Satisfied with this reduction, we then placed a figure-o f-eight #18 stainless steel wire around both the proximal and distal end of our K-wire pins and tight ened our mxkodk-vb-evldl wire. Fluoroscopic views in AP and lateral projection showed again maintena nce of the fracture reduction and a better compression of our fracture. The articulating surface and lateral view was also contiguous this at this point as well. We then cut the pins proximally and di stally proud and bent them to 90 degrees away from the direction of the skin. Also, we cut the wire loop that was used in tightening of our [id number] wire loop proud. The middle knot was also tu rned into the patella and away from the skin. Our final fluoroscopic views in AP and lateral project ion again showed a good fracture reduction and satisfactory placement of all hardware. We irrigated the wound out thoroughly with saline. We then closed the wound in layers using first baseball a type stitch of 0 Polysorb to repair the medial and lateral retinacular tears about the patella. Once the retinacular tears were repaired medially and laterally, we then closed the subcutaneous tissue using buried simple stitches of 3-0 Polysorb. Finally, skin tk were used to approximate the skin edg e. We injected then approximately 12 mL of 0.5% Marcaine with epinephrine to provide incisional anes thesia postoperatively. It should be noted that we did deflate the tourniquet after closing the woun d. We then dressed the wound with Xeroform gauze, 4 x 4's, Kerlix, and an Pal wrap. The leg was the n placed in a knee immobilizer with the knee in near extension. Patient was then transferred off the OR table and taken to the recovery room in satisfactory condition. ESTIMATED BLOOD LOSS: 50 mL REPLACEMENT: 800 mL crystalloid. TOURNIQUET TIME: 71 minutes. INTRAOPERATIVE COMPLICATIONS: None. PLAN: Patient may go weightbearing as tolerated with the knee in a knee immobilizer. We will plan o n keeping her knee in extension for about 4 weeks' time before beginning working on gentle range of m otion to her knee, out of her knee immobilizer. TD: 03/07/2019 14:20
[2019-03-07] MEDS: CALCIUM CARBONATE CHEW 500 MG TABLET PO SCH (15:17)
[2019-03-07] MEDS: CHOLECALCIFEROL 1,000 UNIT TABLET PO SCH (15:17)
[2019-03-07] MEDS: ASPIRIN 325 MG TABLET PO SCH (16:57)
[2019-03-07] MEDS: SODIUM CHLORIDE FLUSH 0.9% 10 ML SYRINGE IVP PRN ×2 (18:41→21:49)
[2019-03-07] MEDS: ceFAZolin 2 GM in SODIUM CHLORIDE 0.9% 100ML 100 ML IV SCH (20:33)
--- NOTE | 2019-03-07 20:45 | XRAY Report ---
Reason: ORIF LEFT PATELLA Procedure Date: 03/07/2019 Accession Number: [id number] / [id number] Procedure: [place] - OR C-Arm Procedure CPT Code: FULL RESULT: EXAM: FLUOROSCOPIC GUIDANCE EXAM DATE: 03/07/2019 11:27 AM. CLINICAL HISTORY: ORIF LEFT PATELLA. COMPARISON: KNEE 4 VIEW LT 03/06/2019 2:09 PM. FINDINGS: The transverse patellar fracture is fixed in near-anatomic alignment with 2 K wires and a wcebrr-[id number]-[id number] cerclage wire. IMPRESSION: Fluoroscopic guidance provided for Dr. Helm. Total fluoroscopy time: 0.09 minutes. Number of images: 2. RADIA
[2019-03-07] MEDS: PROCHLORPERAZINE 10 MG/2 ML VIAL IVP PRN (21:48)
[2019-03-08] MEDS: SODIUM CHLORIDE FLUSH 0.9% 10 ML SYRINGE IVP SCH ×4 (00:41→17:13)
[2019-03-08] MEDS ORDERED: SODIUM CHLORIDE 0.9% 500 ML IV ONE (00:55)
[2019-03-08] MEDS: SODIUM CHLORIDE 0.9% 1,000 ML IV SCH (01:37)
[2019-03-08] MEDS ORDERED: INSULIN 70/30 HUMAN 100 UNIT/1 ML 10 ML MDV SUBQ ONE (03:29)
[2019-03-08] MEDS: ceFAZolin 2 GM in SODIUM CHLORIDE 0.9% 100ML 100 ML IV SCH (04:17)
[2019-03-08 05:52] LABS: CALCIUM 8.1 mg/dL (8.5-10.3); CREATININE 0.8 mg/dL (0.4-1.0)
[2019-03-08 06:01] LABS: BASOPHILS % (AUTO) 0.3 %; EOSINOPHILS # (AUTO) 0.1 10^3/uL (0.0-0.7); EOSINOPHILS % (AUTO) 0.6 %; HGB - HEMOGLOBIN 10.1 g/dL (12.0-16.0); LYMPHOCYTES # (AUTO) 0.7 10^3/uL (1.5-3.5); LYMPHOCYTES % (AUTO) 7.6 %; MEAN CORPUSCULAR HEMOGLOBIN 31.7 pg (27.0-31.0); MEAN CORPUSCULAR HGB CONC 32.3 g/dL (32.0-36.0); MEAN CORPUSCULAR VOLUME 98.1 fL (81.0-99.0); MONOCYTES # (AUTO) 0.6 10^3/uL (0.0-1.0); MONOCYTES % (AUTO) 6.9 %; NEUTROPHILS # (AUTO) 7.3 10^3/uL (1.5-6.6); PLT - PLATELET COUNT 191 10^3/uL (130-450); RED BLOOD COUNT 3.19 10^6/uL (4.20-5.40); RED CELL DISTRIBUTION WIDTH 12.5 % (12.0-15.0); WHITE BLOOD COUNT 8.7 x10^3/uL (4.8-10.8)
[2019-03-08] MEDS: INSULIN GLARGINE 300 UNIT/3 ML PEN SUBQ SCH (08:24)
[2019-03-08] MEDS: INSULIN ASPART 300 UNIT/3 ML PEN SUBQ SCH ×4 (08:25→20:44)
[2019-03-08] MEDS: CALCIUM CARBONATE CHEW 500 MG TABLET PO SCH ×2 (08:27→20:43)
[2019-03-08] MEDS: ASPIRIN 325 MG TABLET PO SCH ×2 (08:28→17:00)
[2019-03-08] MEDS: CHOLECALCIFEROL 1,000 UNIT TABLET PO SCH (08:28)
[2019-03-08] MEDS: FAMOTIDINE 20 MG TABLET PO SCH (08:29)
[2019-03-08] MEDS: oxyCODONE 5 MG TABLET PO PRN ×2 (08:29→12:44)
[2019-03-08] MEDS: POLYETHYLENE GLYCOL 3350 17 GM PACKET PO SCH (08:30)
[2019-03-08] MEDS ORDERED: ENOXAPARIN 40 MG/0.4 ML SYRINGE SUBQ SCH (09:00)
--- NOTE | 2019-03-08 10:35 | PROVIDER PROGRESS NOTE ---
Subjective - Prog Note Date Prog Note Date: 03/08/19 Prog Note Time: 10:32 - Subjective Subjective: Usual post op pain. Up in chair Objective - Vital Signs/Intake & Output Vital Signs: Vital Signs x48h Temp Pulse Resp BP BP Pulse Ox 03/08/19 07:30 37.1 C 88 16 122/56 L 96 03/08/19 04:15 36.9 C 84 16 103/48 L 96 Intake & Output: Intake & Output 03/05/19 03/06/19 03/07/19 03/08/19 23:59 23:59 23:59 23:59 Intake Total 590 2098.333 1960 Output Total 950 625 Balance 590 9586.513 9356 - Lab Results Fish Bones: 03/08/19 05:25 03/08/19 05:25 Other Labs: Lab Results x24hrs 03/08/19 03/08/19 03/08/19 Range/Units 07:23 05:25 05:25 WBC 8.7 (4.8-10.8) x10^3/uL RBC 3.19 L (4.20-5.40) 10^6/uL Hgb 10.1 L (12.0-16.0) g/dL Hct 31.3 L (37.0-47.0) % MCV 98.1 (81.0-99.0) fL MCH 31.7 H (27.0-31.0) pg MCHC 32.3 (32.0-36.0) g/dL RDW 12.5 (12.0-15.0) % Plt Count 191 (130-450) 10^3/uL MPV 10.0 (7.9-10.8) fL Neut # (Auto) 7.3 H (1.5-6.6) 10^3/uL Lymph # (Auto) 0.7 L (1.5-3.5) 10^3/uL [place] # (Auto) 0.6 (0.0-1.0) 10^3/uL Eos # (Auto) 0.1 (0.0-0.7) 10^3/uL Baso # (Auto) 0.0 (0.0-0.1) 10^3/uL Absolute Nucleated RBC 0.00 x10^3/uL Nucleated RBC % 0.0 /100WBC Sodium 140 (135-145) mmol/L Potassium 4.5 (3.5-5.0) mmol/L Chloride 106 (101-111) mmol/L Carbon Dioxide 25 (21-32) mmol/L Anion Gap 9.0 (6-13) BUN 14 (6-20) mg/dL Creatinine 0.8 (0.4-1.0) mg/dL Estimated GFR (MDRD) 72 L (>89) Glucose 205 H (70-100) mg/dL POC Whole Bld Glucose 174 H (70 - 100) mg/dL Calcium 8.1 L (8.5-10.3) mg/dL 03/07/19 03/07/19 03/07/19 Range/Units 21:03 16:32 14:16 WBC (4.8-10.8) x10^3/uL RBC (4.20-5.40) 10^6/uL Hgb (12.0-16.0) g/dL Hct (37.0-47.0) % MCV (81.0-99.0) fL MCH (27.0-31.0) pg MCHC (32.0-36.0) g/dL RDW (12.0-15.0) % Plt Count (130-450) 10^3/uL MPV (7.9-10.8) fL Neut # (Auto) (1.5-6.6) 10^3/uL Lymph # (Auto) (1.5-3.5) 10^3/uL [place]xton # (Auto) (0.0-1.0) 10^3/uL Eos # (Auto) (0.0-0.7) 10^3/uL Baso # (Auto) (0.0-0.1) 10^3/uL Absolute Nucleated RBC x10^3/uL Nucleated RBC % /100WBC Sodium (135-145) mmol/L Potassium (3.5-5.0) mmol/L Chloride (101-111) mmol/L Carbon Dioxide (21-32) mmol/L Anion Gap (6-13) BUN (6-20) mg/dL Creatinine (0.4-1.0) mg/dL Estimated GFR (MDRD) (>89) Glucose (70-100) mg/dL POC Whole Bld Glucose 173 H 189 H 183 H (70 - 100) mg/dL Calcium (8.5-10.3) mg/dL 03/07/19 Range/Units 11:27 WBC (4.8-10.8) x10^3/uL RBC (4.20-5.40) 10^6/uL Hgb (12.0-16.0) g/dL Hct (37.0-47.0) % MCV (81.0-99.0) fL MCH (27.0-31.0) pg MCHC (32.0-36.0) g/dL RDW (12.0-15.0) % Plt Count (130-450) 10^3/uL MPV (7.9-10.8) fL Neut # (Auto) (1.5-6.6) 10^3/uL Lymph # (Auto) (1.5-3.5) 10^3/uL [place]xton # (Auto) (0.0-1.0) 10^3/uL Eos # (Auto) (0.0-0.7) 10^3/uL Baso # (Auto) (0.0-0.1) 10^3/uL Absolute Nucleated RBC x10^3/uL Nucleated RBC % /100WBC Sodium (135-145) mmol/L Potassium (3.5-5.0) mmol/L Chloride (101-111) mmol/L Carbon Dioxide (21-32) mmol/L Anion Gap (6-13) BUN (6-20) mg/dL Creatinine (0.4-1.0) mg/dL Estimated GFR (MDRD) (>89) Glucose (70-100) mg/dL POC Whole Bld Glucose 173 H (70 - 100) mg/dL Calcium (8.5-10.3) mg/dL - Other Results/Comments Other Results/Comments: EXAM: Knee brace on. Moves toes well. Sensation intact. Good cap filling. Sepsis Event Note (H) - Evaluation Current Stage of Sepsis: Ruled out Assessment/Plan - Problem List (1) Patellar fracture Impression: Satis post op PLAN: Mobilize as tolerated with brace on. Can go home when independent and pain controlled with oral analgesics. Follow up in 2 weeks for tk out and new XR. Qualifiers: Encounter type: initial encounter Fracture type: closed Fracture m orphology: transverse Fracture alignment: displaced Laterality: left Qualified Code(s): S82.032A - Displaced transverse fracture of left patella, initial encounter for closed fracture
--- NOTE | 2019-03-08 11:07 | PROVIDER PROGRESS NOTE ---
Subjective - Prog Note Date Prog Note Date: 03/08/19 Prog Note Time: 11:04 - Subjective Pt reports feeling: Improved Subjective: Rylee complains of her blood sugars being higher than she cares for this morning. I reassured her of the reduction in her usual Lantus dose was the most likely culprit. She has no headaches, chest pain, shortness of breath, rashes, dysuria, or dizziness today. She does feel that her bowels are not as usual and requests more bowel meds. Her pain is considered not in good control, requiring more adjustments today. Current Medications - Current Medications Current Medications: Active Medications: Acetaminophen (Tylenol) 975 mg PO Q6HR JASON Aspirin (Rogelio) 325 mg PO BIDWM JASON Calcium Carbonate/Glycine (Tums) 500 mg PO BID JASON Cholecalciferol (Vitamin D3) 2,000 unit PO DAILY JASON Famotidine (Pepcid) 20 mg PO DAILY JASON Insulin Aspart (Novolog) 1 - 9 unit SUBQ 0800,1200,1700,2100 JASON; Protocol Insulin Glargine (Lantus Solostar) 12 unit SUBQ DAILY JASON Morphine Sulfate 2 mg IVP Q2HR PRN Ondansetron HCl (Zofran Inj) 4 mg IVP Q6HR PRN Oxycodone HCl (Roxicodone) 5 mg PO Q4HR PRN Toradol 10 mg PO Q6H PRN Polyethylene Glycol (Miralax) 17 gm PO DAILY JASON Prochlorperazine Edisylate (Compazine Inj) 10 mg IVP Q6HR PRN Lactulose 10 mg daily PO HOME meds: Insulin Aspart (Vial) [NovoLOG] 2 - 6 unit SQ AC 01/24/15 Insulin Glargine,Hum.rec.anlog [Lantus] 14 units SQ DAILY 01/24/15 Objective - Vital Signs/Intake & Output Reviewed Vital Signs: Yes Vital Signs: Vital Signs x48h Temp Pulse Resp BP BP Pulse Ox 03/08/19 07:30 37.1 C 88 16 122/56 L 96 03/08/19 04:15 36.9 C 84 16 103/48 L 96 Intake & Output: Intake & Output 03/05/19 03/06/19 03/07/19 03/08/19 23:59 23:59 23:59 23:59 Intake Total 590 2098.019 2543.333 Output Total 950 625 Balance 590 1458.903 1998.333 - Objective General Appearance: positive: No acute distress, Alert, Anxious Eyes Bilateral: positive: PERRL, No lid inflammation ENT: positive: Pharynx nml, No signs of dehydration Neck: positive: Thyroid nml, No JVD, Trachea midline Respiratory: positive: Chest non-tender, No respiratory distress, Breath sounds nml Cardiovascular: positive: Regular rate & rhythm, No gallop, Systolic murmur, Decreased pulse(s) Peripheral Pulses: 1+ Radial (R), 1+ Radial (L) Abdomen: positive: Non-tender, Nml bowel sounds Back: positive: Nml inspection Skin: positive: No rash, Warm, Dry, Other (bronze toned skin) Extremities: positive: Pedal edema, Joint swelling (left knee) Neurologic/Psychiatric: positive: Oriented x3, CN's nml (2-12), Motor nml, Sensation nml, Mood/affect nml Reflexes: Bicep (R): 3+, Bicep (L): 3+ - Lab Results Fish Bones: 03/08/19 05:25 03/08/19 05:25 Other Labs: Lab Results x24hrs 03/08/19 03/08/19 03/08/19 Range/Units 07:23 05:25 05:25 WBC 8.7 (4.8-10.8) x10^3/uL RBC 3.19 L (4.20-5.40) 10^6/uL Hgb 10.1 L (12.0-16.0) g/dL Hct 31.3 L (37.0-47.0) % MCV 98.1 (81.0-99.0) fL MCH 31.7 H (27.0-31.0) pg MCHC 32.3 (32.0-36.0) g/dL RDW 12.5 (12.0-15.0) % Plt Count 191 (130-450) 10^3/uL MPV 10.0 (7.9-10.8) fL Neut # (Auto) 7.3 H (1.5-6.6) 10^3/uL Lymph # (Auto) 0.7 L (1.5-3.5) 10^3/uL Izard # (Auto) 0.6 (0.0-1.0) 10^3/uL Eos # (Auto) 0.1 (0.0-0.7) 10^3/uL Baso # (Auto) 0.0 (0.0-0.1) 10^3/uL Absolute Nucleated RBC 0.00 x10^3/uL Nucleated RBC % 0.0 /100WBC Sodium 140 (135-145) mmol/L Potassium 4.5 (3.5-5.0) mmol/L Chloride 106 (101-111) mmol/L Carbon Dioxide 25 (21-32) mmol/L Anion Gap 9.0 (6-13) BUN 14 (6-20) mg/dL Creatinine 0.8 (0.4-1.0) mg/dL Estimated GFR (MDRD) 72 L (>89) Glucose 205 H (70-100) mg/dL POC Whole Bld Glucose 174 H (70 - 100) mg/dL Calcium 8.1 L (8.5-10.3) mg/dL 03/07/19 03/07/19 03/07/19 Range/Units 21:03 16:32 14:16 WBC (4.8-10.8) x10^3/uL RBC (4.20-5.40) 10^6/uL Hgb (12.0-16.0) g/dL Hct (37.0-47.0) % MCV (81.0-99.0) fL MCH (27.0-31.0) pg MCHC (32.0-36.0) g/dL RDW (12.0-15.0) % Plt Count (130-450) 10^3/uL MPV (7.9-10.8) fL Neut # (Auto) (1.5-6.6) 10^3/uL Lymph # (Auto) (1.5-3.5) 10^3/uL Izard # (Auto) (0.0-1.0) 10^3/uL Eos # (Auto) (0.0-0.7) 10^3/uL Baso # (Auto) (0.0-0.1) 10^3/uL Absolute Nucleated RBC x10^3/uL Nucleated RBC % /100WBC Sodium (135-145) mmol/L Potassium (3.5-5.0) mmol/L Chloride (101-111) mmol/L Carbon Dioxide (21-32) mmol/L Anion Gap (6-13) BUN (6-20) mg/dL Creatinine (0.4-1.0) mg/dL Estimated GFR (MDRD) (>89) Glucose (70-100) mg/dL POC Whole Bld Glucose 173 H 189 H 183 H (70 - 100) mg/dL Calcium (8.5-10.3) mg/dL 03/07/19 Range/Units 11:27 WBC (4.8-10.8) x10^3/uL RBC (4.20-5.40) 10^6/uL Hgb (12.0-16.0) g/dL Hct (37.0-47.0) % MCV (81.0-99.0) fL MCH (27.0-31.0) pg MCHC (32.0-36.0) g/dL RDW (12.0-15.0) % Plt Count (130-450) 10^3/uL MPV (7.9-10.8) fL Neut # (Auto) (1.5-6.6) 10^3/uL Lymph # (Auto) (1.5-3.5) 10^3/uL Izard # (Auto) (0.0-1.0) 10^3/uL Eos # (Auto) (0.0-0.7) 10^3/uL Baso # (Auto) (0.0-0.1) 10^3/uL Absolute Nucleated RBC x10^3/uL Nucleated RBC % /100WBC Sodium (135-145) mmol/L Potassium (3.5-5.0) mmol/L Chloride (101-111) mmol/L Carbon Dioxide (21-32) mmol/L Anion Gap (6-13) BUN (6-20) mg/dL Creatinine (0.4-1.0) mg/dL Estimated GFR (MDRD) (>89) Glucose (70-100) mg/dL POC Whole Bld Glucose 173 H (70 - 100) mg/dL Calcium (8.5-10.3) mg/dL ABX Reporting Has patient been on IV antibiotics over the past 48 hours?: No Sepsis Event Note (H) - Evaluation Current Stage of Sepsis: Ruled out Assessment/Plan - Problem List (1) Patellar fracture Impression: -The patient had a mechanical fall in her garage while wearing crock shoes creating a very slippery surface. -She states that she landed directly on her left knee -Since the fall her left knee has had mild to moderate swelling and she could not bear weight on her left leg -Imaging confirmed a substantial displaced patellar fracture -Dr. Helm, orthopedic surgery is planning for surgery this afternoon Plan: Continue with pain control, NPO except meds until after surgery, continue IVFs, PT/OT after surgery, DVT prophylaxis per surgery Intractable pain -Left leg/knee pain post op -Now post-op day #1 -Status post IV Tylenol, now on oral Tylenol -Not doing well with PT, so added Toradol PO -Oxycodone was given after lunch with good results Plan: Continue to titrate pain medications, offer oxycodone or IV morphine if needed Hypertension -Not on any home medications at home, although should be on at least an JESSIKA -Charted blood pressures moderately elevated at 129/81, heart rate 91 -Likely a consequence of IV fluids Plan: Continue to monitor, offer Lisinopril if needed Fall -Patient states that she had a mechanical fall in which she was in her garage (slippery floors), was wearing crock shoes and fell on her left knee -She states that she read on the internet that an injury to the knee should resolve in about 3 days, if not seek medical attention Plan: Continue with fall precautions, symptom management, follow post-op recommendations as per orthopedic surgery, await post-op PT/OT evaluation Nausea with vomiting -Started shortly after admission -Suspect from trauma, stress Plan: Continue to treat symptoms with Zofran, continue IVFs, monitor for improvement Alcohol use -Patient admits to drinking 1-2 glasses of red wine nightly -She feels that she has gone several days without any in the recent past -No prominent history of alcoholism Plan: Watch for withdrawal symptoms, especially if the patient stays greater than 48-72 hours Diabetes type 1, controlled -Hemoglobin A1C shows good control at 6.1% -Her usual schedule at home is Lantus 14 units in the AM, and carb counting to determine rapid acting coverage Plan: Continue carb controlled diet, SSI, Lantus at 10 units, and blood sugar checks, monitor for hypoglycemia Osteoporosis -Patient has a known history of this, first diagnosed in 2012 via a bone density survey -Likely the most likely contributing cause of this injury Plan: Continue to monitor, continue D3, suggest Fosomax, unless prior use Slow transit constipation -Patient states that she usually moves her bowels at least one time per day -Last BM was one day prior to admission (03/06) -Not yet having abdominal pain, but does admit to feeling full on exam Plan: Lactulose daily, hold for diarrhea Qualifiers: Qualified Code(s): S82.032A - Displaced transverse fracture of left patella, initial encounter for closed fracture
[2019-03-08] MEDS ORDERED: KETOROLAC 10 MG TABLET PO PRN (11:41)
[2019-03-08] MEDS: ACETAMINOPHEN 325 MG TABLET PO SCH ×2 (12:02→18:14)
[2019-03-08] MEDS ORDERED: INSULIN ASPART 300 UNIT/3 ML PEN SUBQ SCH (14:39)
[2019-03-08] MEDS ORDERED: INSULIN GLARGINE 300 UNIT/3 ML PEN SUBQ SCH (14:41)
[2019-03-08] MEDS: LACTULOSE 10 GM /15 ML UDC PO SCH (15:27)
[2019-03-08] MEDS: PROCHLORPERAZINE 10 MG/2 ML VIAL IVP PRN (17:06)
[2019-03-09] MEDS: ACETAMINOPHEN 325 MG TABLET PO SCH ×2 (00:03→06:03)
[2019-03-09] MEDS: SODIUM CHLORIDE FLUSH 0.9% 10 ML SYRINGE IVP SCH ×2 (01:04→08:38)
[2019-03-09 05:09] LABS: BASOPHILS % (AUTO) 0.5 %; EOSINOPHILS # (AUTO) 0.1 10^3/uL (0.0-0.7); EOSINOPHILS % (AUTO) 1.9 %; HGB - HEMOGLOBIN 9.2 g/dL (12.0-16.0); LYMPHOCYTES # (AUTO) 1.1 10^3/uL (1.5-3.5); LYMPHOCYTES % (AUTO) 18.8 %; MEAN CORPUSCULAR HEMOGLOBIN 30.3 pg (27.0-31.0); MEAN CORPUSCULAR HGB CONC 31.2 g/dL (32.0-36.0); MEAN PLATELET VOLUME 10.1 fL (7.9-10.8); MONOCYTES # (AUTO) 0.5 10^3/uL (0.0-1.0); MONOCYTES % (AUTO) 8.8 %; NEUTROPHILS # (AUTO) 4.1 10^3/uL (1.5-6.6); NEUTROPHILS % (AUTO) 69.7 %; PLT - PLATELET COUNT 178 10^3/uL (130-450); RED BLOOD COUNT 3.04 10^6/uL (4.20-5.40); RED CELL DISTRIBUTION WIDTH 12.8 % (12.0-15.0); WHITE BLOOD COUNT 5.9 x10^3/uL (4.8-10.8)
[2019-03-09 05:19] LABS: ALBUMIN 2.8 g/dL (3.2-5.5); ALBUMIN/GLOBULIN RATIO 1.2 (1.0-2.2); BILIRUBIN,TOTAL 0.4 mg/dL (0.2-1.0); CALCIUM 8.8 mg/dL (8.5-10.3); CREATININE 0.7 mg/dL (0.4-1.0); TOTAL PROTEIN 5.2 g/dL (6.7-8.2)
[2019-03-09 07:53] VITALS: BP 128/82
--- NOTE | 2019-03-09 08:27 | Discharge Plan ---
Discharge Plan Problem Reviewed?: Yes Disposition: Home, Self Care Condition: Good Prescriptions: Acetaminophen [Tylenol] 975 mg PO Q6HR PRN #60 tablet PRN Reason: Pain Alendronate [Fosamax] 70 mg PO Q7D #12 tablet Aspirin [Rogelio] 325 mg PO DAILY #30 tablet Cholecalciferol (Vitamin D3) [Vitamin D] 2,000 unit PO DAILY #30 capsule oxyCODONE [Roxicodone] 5 mg PO Q4-6H PRN #30 tablet PRN Reason: Pain Diet: Diabetic Activity Restrictions: Activity as Tolerated Weight Bearing: Other (Weight bearing as tolerated) Health Concerns: Fractured left knee Post-operative pain Diabetes mellitus Constipation Plan of Treatment: Continue a full dose aspirin for 30-days past your surgery date to prevent blood clots forming in your legs. Take Oxycodone as needed, and do not drive after use. See orthopedic surgery outpatient in the next 2 weeks for follow up and x-rays. See your PCP within one week of this stay Care Goals: Ensure healing after surgery Prevent post-op complications Prevent falls Follow restrictions as per Orthopedic surgery Prevent hospital stays Assessment: You are medically cleared for discharge today. Your pain is better managed after taking Oxycodone. Ideally, it would be nice to have you move your bowels prior to leaving today. Additional Instructions or Follow Up instructions: Start the Fosomax (to be taken once weekly) after you finish the daily aspirin, in 30-days. No Smoking: If you smoke, Please STOP! Call for help.
[2019-03-09] MEDS ORDERED: MAGNESIUM CITRATE 296 ML BOTTLE PO ONE (08:31)
[2019-03-09] MEDS: FAMOTIDINE 20 MG TABLET PO SCH (08:34)
[2019-03-09] MEDS: ASPIRIN 325 MG TABLET PO SCH (08:35)
[2019-03-09] MEDS: CHOLECALCIFEROL 1,000 UNIT TABLET PO SCH (08:36)
[2019-03-09] MEDS: LACTULOSE 10 GM /15 ML UDC PO SCH (08:37)
[2019-03-09] MEDS: CALCIUM CARBONATE CHEW 500 MG TABLET PO SCH (08:38)
[2019-03-09] MEDS: INSULIN ASPART 300 UNIT/3 ML PEN SUBQ SCH (08:38)
[2019-03-09] MEDS: POLYETHYLENE GLYCOL 3350 17 GM PACKET PO SCH (08:38)
--- NOTE | 2019-03-09 08:40 | DISCHARGE SUMMARY ---
"Discharge Summary Admit Date: 03/06/19 Discharge Date: 03/09/19 Discharging Provider: DALLAS Moise Code Status: Attempt Resuscitation Condition at Discharge: Good Discharge Disposition: 01 Home, Self Care - DIAGNOSES Admission Diagnoses: Patellar fracture Diabetes type 1, controlled Fall Full code status Discharge Diagnoses with Status of Each Condition: Patellar fracture- new on this admission, underwent inpatient rehabilitation with PT/OT evaluations, prescribed a 2-wheeled walker prior to discharge, continue post-op care Intractable pain- severe pain requiring acute inpatient management (initiation of IV morphine and oxycodone- both new medications to the patient), improved, sent with oxycodone if needed at home, stable Hypertension- chronic, stable Fall- acute, resolved Nausea and vomiting- controlled, improved Alcohol daily use- stable, no signs of withdrawal Diabetes type 1, controlled- stable, well controlled, hemoglobin A1C was 6.1% Osteoporosis- chronic, stable Slow transit constipation- improved, resolved - HPI History of Present Illness: Rylee Jimenez is a 69-year-old female with a past medical history of type I diabetes and osteoporosis. She presented to the ED with complaints of left knee pain, swelling, and an inability to bear weight which started 3-days ago after falling in her garage while wearing Croc shoes. She noted that she landed directly on her left knee and since it had just rained her Croc shoes made for a very slippery surface. She states that since her original fall, she had a few more stumbles due to her inability to bear weight on the left, but she did not loose consciousness, did not hit her head and had no other injuries. She is not known to have any other chronic illnesses and her blood sugars have been well managed. A left knee x-rays showed mildly comminuted, substantially displaced/distracted patellar fracture, anterior soft tissue swelling and joint effusion. Due to the severity of this left patellar fracture, this indicated an inpatient admission. Lab testing showed no impressive abnormalities, except a slightly elevated glucose. Dr. Helm, orthopedic surgery plans for surgery in the AM, and she was admitted under the medical service. - CONSULTS | PROCEDURES Consultations: Orthopedic surgery- Dr. Helm Procedures: Admit Date: 03/06/19 Procedure Date: 03/07/19 Planned Procedure: ORIF of left patella fracture with tension band wire technique Pre-Op Diagnosis: Distracted left patella fracture Procedure Performed: ORIF left patella fracture with tension band wire technique Post Op Diagnosis: Same Primary Surgeon: Leslie Helm MD Anesthesia Provider: Vinicius Kemp CRNA Anesthesia Technique: General LMA IV Fluids (mL): 800 Estimated Blood Loss (mL): 50 Complications: None - HOSPITAL COURSE Hospital Course: The patient had a mechanical fall in her garage while wearing crock shoes creating a very slippery surface. Imaging confirmed a substantial displaced patellar fracture, which was repaired by Dr. Helm, orthopedic without any post- operative complications. surgery is planning for surgery this afternoon. Physical therapy recommended home with a 2-wheeled walker which was prescribed prior to her departure. Her diabetes was thought to be in good control with a hemoglobin A1C of 6.1% and she remained on her usual schedule at home. The patient has a known history of osteoporosis, first diagnosed in 2012 via a bone density survey, and was prescribed vitamin D3, suggest Fosomax, unless prior use, prescription was given. The patient stated that she usually moves her bowels at least one time per day, but had not results in the post-op period, but right before discharge was able to move her bowels. Disposition: The patient was medically stable and discharged home with her and a 2-wheeled walker. She was having mild nausea, but this was manageable. - ALLERGIES Allergies/Adverse Reactions: Allergies Allergy/AdvReac Type Severity Reaction Status Date / Time No Known Drug Allergies Allergy Verified 11/01/15 08:52 - MEDICATIONS Home Medications: Ambulatory Orders Medication Instructions Recorded Confirmed Insulin Aspart (Vial) [NovoLOG 2 - 6 unit SQ AC 01/24/15 03/06/19 (VIAL FOR ED USE)] Insulin Glargine,Hum.rec.anlog 14 units SQ DAILY 01/24/15 03/06/19 [Lantus] Acetaminophen [Tylenol] 975 mg PO Q6HR PRN #60 tablet 03/09/19 Alendronate [Fosamax] 70 mg PO Q7D #12 tablet 03/09/19 Aspirin [Rogelio] 325 mg PO DAILY #30 tablet 03/09/19 Cholecalciferol (Vitamin D3) 2,000 unit PO DAILY #30 capsule 03/09/19 [Vitamin D] oxyCODONE [Roxicodone] 5 mg PO Q4-6H PRN #30 tablet 03/09/19 - PHYSICAL EXAM AT DISCHARGE General Appearance: positive: No acute distress, Alert Eyes Bilateral: positive: PERRL ENT: positive: Pharynx nml, No signs of dehydration Neck: positive: Thyroid nml, No JVD, Trachea midline Respiratory: positive: Chest non-tender, No respiratory distress, Breath sounds nml, Other (slight crackles in right base- incentive spirometry ordered) Cardiovascular: positive: Regular rate & rhythm, No gallop, Systolic murmur Peripheral Pulses: positive: 2+ Abdomen: positive: Non-tender, Nml bowel sounds, Abnml bowel sounds (hyperact gamal) Back: positive: Nml inspection Skin: positive: Color nml, No rash, Warm, Dry, Other (bronze toned skin) Extremities: positive: Non-tender, No pedal edema, Joint swelling (left knee) Neurologic/Psychiatric: positive: Oriented x3, CN's nml (2-12), Motor nml, Sensation nml, Mood/affect nml Reflexes: Bicep (R): 3+, Bicep (L): 3+ - LABS Result Diagrams: 03/09/19 04:50 03/09/19 04:50 - DIAGNOSTIC IMAGING Diagnostic Imaging Results: Final report reviewed Diagnostic Imaging Results Comments: EXAM: LEFT KNEE RADIOGRAPHY EXAM DATE: 03/06/2019 02:19 PM IMPRESSION: 1. Mildly comminuted, substantially displace/distracted patellar fracture. 2. Anterior soft tissue swelling and joint effusion. EXAM: FLUOROSCOPIC GUIDANCE EXAM DATE: 03/07/2019 11:27 AM IMPRESSION: Fluoroscopic guidance provided for Dr. Helm. Total fluoroscopy time: 0.09 minutes. Number of images: 2 - SEPSIS Current Stage of Sepsis: Ruled out - QUALITY (Female Hip Fx Only) Was patient sent home on osteoporosis medication?: Yes - FOLLOW UP Follow Up: Disposition: Home Prescriptions: Acetaminophen [Tylenol] 975 mg PO Q6HR PRN #60 tablet PRN Reason: Pain Alendronate [Fosamax] 70 mg PO Q7D #12 tablet Aspirin [Rogelio] 325 mg PO DAILY #30 tablet Cholecalciferol (Vitamin D3) [Vitamin D] 2,000 unit PO DAILY #30 capsule oxyCODONE [Roxicodone] 5 mg PO Q4-6H PRN #30 tablet PRN Reason: Pain Health Concerns: Fractured left knee, Post-operative pain, Diabetes mellitus, Constipation Plan of Treatment: Continue a full dose aspirin for 30-days past your surgery date to prevent blood clots forming in your legs. Take Oxycodone as needed, and do not drive after use. See orthopedic surgery outpatient in the next 2 weeks for follow up and x-rays. See your PCP within one week of this stay Care Goals: Ensure healing after surgery Prevent post-op complications Prevent falls Follow restrictions as per Orthopedic surgery Prevent hospital stays Assessment: You are medically cleared for discharge today. Your pain is better managed after taking Oxycodone. - TIME SPENT Time Spent in Discharge (Minutes): 55"
[2019-03-09] MEDS ORDERED: INSULIN GLARGINE 300 UNIT/3 ML PEN SUBQ SCH ×2 (09:00)
[2019-03-09] MEDS ORDERED: SENNA 8.6 MG TABLET PO SCH (09:00)
[2019-03-09] MEDS ORDERED: LACTULOSE 10 GM /15 ML UDC PO SCH (09:00)
--- NOTE | 2019-03-09 09:06 | PROVIDER PROGRESS NOTE ---
Subjective - Prog Note Date Prog Note Date: 03/09/19 Prog Note Time: 09:04 - Subjective Pt reports feeling: Improved (Less pain today. Up in chair) Objective - Vital Signs/Intake & Output Vital Signs: Vital Signs x48h Temp Pulse Resp BP Pulse Ox 03/09/19 07:15 36.9 C 94 16 128/82 H 96 Intake & Output: Intake & Output 03/06/19 03/07/19 03/08/19 03/09/19 23:59 23:59 23:59 23:59 Intake Total 590 2098.333 3213.333 730 Output Total 950 625 Balance 590 0600.486 3892.333 730 - Lab Results Fish Bones: 03/09/19 04:50 03/09/19 04:50 Other Labs: Lab Results x24hrs 03/09/19 03/09/19 03/09/19 Range/Units 07:17 04:50 04:50 WBC 5.9 (4.8-10.8) x10^3/uL RBC 3.04 L (4.20-5.40) 10^6/uL Hgb 9.2 L (12.0-16.0) g/dL Hct 29.5 L (37.0-47.0) % MCV 97.0 (81.0-99.0) fL MCH 30.3 (27.0-31.0) pg MCHC 31.2 L (32.0-36.0) g/dL RDW 12.8 (12.0-15.0) % Plt Count 178 (130-450) 10^3/uL MPV 10.1 (7.9-10.8) fL Neut # (Auto) 4.1 (1.5-6.6) 10^3/uL Lymph # (Auto) 1.1 L (1.5-3.5) 10^3/uL Dane # (Auto) 0.5 (0.0-1.0) 10^3/uL Eos # (Auto) 0.1 (0.0-0.7) 10^3/uL Baso # (Auto) 0.0 (0.0-0.1) 10^3/uL Absolute Nucleated RBC 0.00 x10^3/uL Nucleated RBC % 0.0 /100WBC Sodium 143 (135-145) mmol/L Potassium 4.7 (3.5-5.0) mmol/L Chloride 107 (101-111) mmol/L Carbon Dioxide 28 (21-32) mmol/L Anion Gap 8.0 (6-13) BUN 11 (6-20) mg/dL Creatinine 0.7 (0.4-1.0) mg/dL Estimated GFR (MDRD) 83 L (>89) Glucose 205 H (70-100) mg/dL POC Whole Bld Glucose 206 H (70 - 100) mg/dL Calcium 8.8 (8.5-10.3) mg/dL Total Bilirubin 0.4 (0.2-1.0) mg/dL AST 20 (10-42) IU/L ALT 11 (10-60) IU/L Alkaline Phosphatase 46 (42-121) IU/L Total Protein 5.2 L (6.7-8.2) g/dL Albumin 2.8 L (3.2-5.5) g/dL Globulin 2.4 (2.1-4.2) g/dL Albumin/Globulin Ratio 1.2 (1.0-2.2) 03/08/19 03/08/19 03/08/19 Range/Units 20:10 16:36 11:10 WBC (4.8-10.8) x10^3/uL RBC (4.20-5.40) 10^6/uL Hgb (12.0-16.0) g/dL Hct (37.0-47.0) % MCV (81.0-99.0) fL MCH (27.0-31.0) pg MCHC (32.0-36.0) g/dL RDW (12.0-15.0) % Plt Count (130-450) 10^3/uL MPV (7.9-10.8) fL Neut # (Auto) (1.5-6.6) 10^3/uL Lymph # (Auto) (1.5-3.5) 10^3/uL Dane # (Auto) (0.0-1.0) 10^3/uL Eos # (Auto) (0.0-0.7) 10^3/uL Baso # (Auto) (0.0-0.1) 10^3/uL Absolute Nucleated RBC x10^3/uL Nucleated RBC % /100WBC Sodium (135-145) mmol/L Potassium (3.5-5.0) mmol/L Chloride (101-111) mmol/L Carbon Dioxide (21-32) mmol/L Anion Gap (6-13) BUN (6-20) mg/dL Creatinine (0.4-1.0) mg/dL Estimated GFR (MDRD) (>89) Glucose (70-100) mg/dL POC Whole Bld Glucose 199 H 224 H 366 H (70 - 100) mg/dL Calcium (8.5-10.3) mg/dL Total Bilirubin (0.2-1.0) mg/dL AST (10-42) IU/L ALT (10-60) IU/L Alkaline Phosphatase (42-121) IU/L Total Protein (6.7-8.2) g/dL Albumin (3.2-5.5) g/dL Globulin (2.1-4.2) g/dL Albumin/Globulin Ratio (1.0-2.2) - Other Results/Comments Other Results/Comments: EXAM: Dressing intact. Brace ok. N/V ok distally Up in PT Sepsis Event Note (H) - Evaluation Current Stage of Sepsis: Ruled out Assessment/Plan - Problem List (1) Patellar fracture Impression: Satis post op PLAN: D/C alejandro today. Mobilize as tolerated in brace. Follow up in 2 weeks Qualifiers: Encounter type: initial encounter Fracture type: closed Fracture morphology: transverse Fracture alignment: displaced Laterality: left Qualified Code(s): S82.032A - Displaced transverse fracture of left patella, initial encounter for closed fracture
[2019-03-09] MEDS ORDERED: MIDAZOLAM 2 MG/2 ML VIAL IVP ONE (11:09)
[2019-03-09] MEDS ORDERED: fentaNYL 100 MCG/2 ML VIAL IVP ONE (11:09)
[2019-03-09] MEDS ORDERED: ePHEDrine 50 MG/ML VIAL IVP ONE (11:09)
[2019-03-09] MEDS ORDERED: PROPOFOL 200 MG/20 ML VIAL IVP ONE (11:09)
[2019-03-09] MEDS ORDERED: DEXAMETHASONE 4 MG/ML VIAL IVP ONE (11:09)
== END 2019-03-09 11:10 | disposition home or self-care (01) | DRG 517 ==
LOC: ED 13:53 → MS2 16:52
PROVIDERS: ADMIT Nurse Practitioner Gerontology; ATTEND Nurse Practitioner
PROC: 0QSF04Z Reposition Left Patella with Internal Fixation Device, Open Approach (ICD-10-PCS; principal; 2019-03-07 10:15)
DX: S82.032A Displaced transverse fracture of left patella, initial encounter for closed fracture (principal); E10.9 Type 1 diabetes mellitus without complications; W01.0XXA Fall on same level from slipping, tripping and stumbling without subsequent striking against object, initial encounter; Y92.015 Private garage of single-family (private) house as the place of occurrence of the external cause; I10 Essential (primary) hypertension; M81.0 Age-related osteoporosis without current pathological fracture; K59.09 Other constipation; R11.2 Nausea with vomiting, unspecified; Z72.89 Other problems related to lifestyle; Z79.4 Long term (current) use of insulin; Z79.82 Long term (current) use of aspirin; Z91.81 History of falling
CPT/HCPCS: 36415; 80048; 80053; 83735; 85025; 97116; 97161; 97165; A9270; C1713; J0131; J1170; J1815; J7120; 83036; 84484; 99284; 99285

== ENCOUNTER 2019-06-06 09:34 | Outpatient (CLI) | payer MEDICARE | END 2019-06-06 09:35 | disposition home or self-care (01) | LOC: LAB 09:34 | PROVIDERS: ATTEND Nurse Practitioner | DX: Z13.89 Encounter for screening for other disorder (principal) | CPT/HCPCS: 36415; 86765 ==

== ENCOUNTER 2019-06-06 11:22 | Outpatient (CLI) | payer MEDICARE ==
--- NOTE | 2019-06-20 13:08 | Mammography Report ---
Reason: ROUTINE MAMMO Procedure Date: 06/06/2019 Accession Number: [id number] / [id number] Procedure: MGN - Screening Mammo Dig w/Implants CPT Code: Final Report FULL RESULT: EXAM: Screening Mammo Dig w/Implants DATE: 06/06/2019 12:04 PM CLINICAL HISTORY: Screening examination. History of bilateral breast implants. TECHNIQUE: (B) - Bilateral CC and MLO views were obtained. All views were obtained in standard fashion and with implant displaced technique. COMPARISON: None PARENCHYMAL PATTERN: (D) - The breast(s) demonstrate(s) heterogeneously dense fibroglandular parenchyma. FINDINGS: Bilateral intact-appearing prepectoral breast implants are noted. There are no suspicious masses, calcifications, or areas of distortion. IMPRESSION: Benign findings. BI-RADS category 2. RECOMMENDATION: (ANNUAL) - Recommend routine annual screening mammography. BI-RADS CATEGORY: (2) - Benign Findings. STANDARD QUALIFYING STATEMENTS: 1. This examination was not reviewed with the aid of Computer-Aided Detection (CAD). 2. A negative or benign imaging report should not preclude biopsy if clinically suspicious findings are present. 3. Dense breasts may obscure an underlying neoplasm. 4. This examination was reviewed without the aid of 3D breast imaging (tomosynthesis).
== END 2019-06-06 11:23 | disposition home or self-care (01) ==
LOC: DI.N 11:22
PROVIDERS: ATTEND Nurse Practitioner
DX: Z12.31 Encounter for screening mammogram for malignant neoplasm of breast (principal); Z98.82 Breast implant status
CPT/HCPCS: 77067

== ENCOUNTER 2022-02-25 16:20 | Outpatient (CLI) | payer MEDICARE ==
[2022-02-25 16:27] LABS: BASOPHILS % (AUTO) 0.7 %; EOSINOPHILS # (AUTO) 0.2 10^3/uL (0.0-0.7); EOSINOPHILS % (AUTO) 4.6 %; HCT - HEMATOCRIT 42.8 % (37.0-47.0); HGB - HEMOGLOBIN 13.9 g/dL (12.0-16.0); LYMPHOCYTES # (AUTO) 1.8 10^3/uL (1.5-3.5); LYMPHOCYTES % (AUTO) 39.3 %; MEAN CORPUSCULAR HEMOGLOBIN 30.2 pg (27.0-31.0); MEAN CORPUSCULAR HGB CONC 32.5 g/dL (32.0-36.0); MEAN CORPUSCULAR VOLUME 92.8 fL (81.0-99.0); MEAN PLATELET VOLUME 10.6 fL (7.9-10.8); MONOCYTES # (AUTO) 0.5 10^3/uL (0.0-1.0); NEUTROPHILS # (AUTO) 2.1 10^3/uL (1.5-6.6); NEUTROPHILS % (AUTO) 45.2 %; PLT - PLATELET COUNT 274 10^3/uL (130-450); RED BLOOD COUNT 4.61 10^6/uL (4.20-5.40); RED CELL DISTRIBUTION WIDTH 12.8 % (12.0-15.0); WHITE BLOOD COUNT 4.6 x10^3/uL (4.8-10.8)
[2022-02-25 16:41] LABS: MICROALBUM/CREATININE RATIO,UR 4.1 ug/mg (<30.0); MICROALBUMIN,URINE 0.3 mg/dL (0-300.0)
[2022-02-25 16:46] LABS: ALBUMIN 3.9 g/dL (3.2-5.5); ALBUMIN/GLOBULIN RATIO 1.4 (1.0-2.2); ALKALINE PHOSPHATASE 64 IU/L (42-121); ALT ALANINE AMINOTRANSFERASE 15 IU/L (10-60); AST ASPARTATE AMINOTRANSFERASE 24 IU/L (10-42); BILIRUBIN,TOTAL 0.9 mg/dL (0.2-1.0); BUN - BLOOD UREA NITROGEN 18 mg/dL (6-20); CALCIUM 9.5 mg/dL (8.5-10.3); CARBON DIOXIDE - CO2 28 mmol/L (21-32); CHLORIDE 103 mmol/L (101-111); CHOL/HDL RATIO 2.3 (<4.4); CHOLESTEROL 269 mg/dL; CREATININE 0.9 mg/dL (0.4-1.0); GFR - MDRD 62 (>89); GLUCOSE 78 mg/dL (70-100); HDL CHOLESTEROL 119 mg/dL; POTASSIUM 4.2 mmol/L (3.5-5.0); SODIUM 140 mmol/L (135-145); TOTAL PROTEIN 6.6 g/dL (6.7-8.2); TRIGLYCERIDES 39 mg/dL
[2022-02-25 21:00] LABS: ESTIMATED AVERAGE GLUCOSE 148 mg/dL (70-100); HEMOGLOBIN A1c% 6.8 % (4.27-6.07)
[2022-02-26 05:11] LABS: HCV AB <0.1 s/co ratio (0.0-0.9)
== END 2022-02-25 16:21 | disposition home or self-care (01) ==
LOC: LAB.R 16:20
PROVIDERS: ATTEND Internal Medicine
DX: E10.9 Type 1 diabetes mellitus without complications (principal); Z13.6 Encounter for screening for cardiovascular disorders; Z79.899 Other long term (current) drug therapy; Z11.59 Encounter for screening for other viral diseases
CPT/HCPCS: 80053; 80061; 82043; 82570; 83036; 83721; 84443; 85025; 86803

== ENCOUNTER 2022-12-18 13:34 | Emergency (ER) | payer MEDICARE ==
[2022-12-18 13:49] VITALS: BP 140/99
--- NOTE | 2022-12-18 13:51 | ED Physician Documentation ---
PD HPI LOWER EXT INJURY - Stated complaint Stated Complaint: L ANKLE PX - Chief complaint Chief Complaint: Ext Problem - History obtained from History obtained from: Patient - History of Present Illness PD HPI LOW EXT INJURY LOCATION: Right, Ankle (medial/ anterior ankle pain with walking/ROM the past 2-3 weeks, more consistent the past several days. Still able to take brisk walks daily. Has had right heel pain for weeks as well. This is more noted in morning, stiff/sore, and improves as more active through the day.), Foot Type of injury: No: Fall, Twist Where injury occurred: Home (no noted abrupt onset nor acute injury noted, per patient.) Timing - onset: How many weeks ago (has been hurting during the day for weeks, worse the past week or so. No rash nor redness. No noted swelling (maybe slight of left ankle). No numbness nor weakness.) Timing - duration: Weeks Timing - details: Gradual onset, Still present, Waxing and waning Worsened by: Moving, Palpating Associated symptoms: No: Weakness, Numbness, Swelling Similar symptoms before: Has not had sx before Recently seen: Not recently seen Review of Systems Constitutional: denies: Fever, Chills Skin: denies: Rash, Lesions Musculoskeletal: denies: Extremity swelling Neurologic: denies: Focal weakness, Numbness PD PAST MEDICAL HISTORY - Past Medical History Cardiovascular: None Respiratory: None Neuro: None Endocrine/Autoimmune: Type 1 diabetes GI: None : None Musculoskeletal: None, Other (no history of gout, rheumatoid.) Derm: None - Past Surgical History Past Surgical History: No Ortho: Other HEENT: Other (thyroid nodule removal) - Present Medications Home Medications: Ambulatory Orders Medication Instructions Recorded Confirmed Insulin Aspart (Vial) [NovoLOG 2 - 6 unit SQ AC 01/24/15 03/06/19 (VIAL FOR ED USE)] Insulin Glargine,Hum.rec.anlog 14 units SQ DAILY 01/24/15 03/06/19 [Lantus] Acetaminophen [Tylenol] 975 mg PO Q6HR PRN #60 tablet 03/09/19 Alendronate [Fosamax] 70 mg PO Q7D #12 tablet 03/09/19 Aspirin [Rogelio] 325 mg PO DAILY #30 tablet 03/09/19 Cholecalciferol (Vitamin D3) 2,000 unit PO DAILY #30 capsule 03/09/19 [Vitamin D] oxyCODONE [Roxicodone] 5 mg PO Q4-6H PRN #30 tablet 03/09/19 - Allergies Allergies/Adverse Reactions: Allergies Allergy/AdvReac Type Severity Reaction Status Date / Time No Known Drug Allergies Allergy Verified 11/01/15 08:52 - Social History Does the pt smoke?: No Smoking Status: Former smoker (37 years ago) Does the pt drink ETOH?: Yes Does the pt have substance abuse?: No - POLST POLST Status: Full Code PD ED PE NORMAL - Vitals Vital signs reviewed: Yes - General General: Alert and oriented X 3, No acute distress, Well developed/nourished - Derm Derm: Normal color, Warm and dry, No rash - Extremities Extremities: Other (left ankle with some tenderness on anteriomedial aspect. No redness. No effusion. Pain with eversion stress. No pain with inversion. Right ankle with tenderness mild at proximal plantar aspect. No sores/firmness. Achilles posteriorly not tender. Passive stretching dorsiflexion with some pain. ) - Neuro Neuro: No motor deficit, No sensory deficit Results - Vitals Vitals: Vital Signs - 24 hr 12/18/22 13:41 Temperature 37.0 C Heart Rate 107 H Respiratory 18 Rate Blood Pressure 140/99 H O2 Saturation 99 Oxygen O2 Source Room air - Rads (name of study) ankles bilaterally Relevant Findings:: Prelim report reviewed, EMP independent interpretation of test (no acute fractures/bony abnormlaity. (no spurs/calcifications seen).), See rad report PD Medical Decision Making - ED course Complexity details: considered differential (sounds like plantar fasciitis of the right heel. Suggest heel cups/lifts for the patient and discussed changing the angle of the ankle to decrease tension at the fascia. The left ankle seems like ligament/muscle injury with ongoing tendonitis/sprain. Suggest ankle brace. She is not sure on NSAIDs. ), d/w patient Departure - Departure Disposition: 01 Home, Self Care Clinical Impression: Plantar fasciitis of right foot, Tendonitis of ankle Condition: Stable Record reviewed to determine appropriate education?: Yes Instructions: Plantar Fasciitis Tx Comments: The pain at the right heel sounds like some inflammation of the fascia/webbing tissue on the bottom of the foot and heel. Typically this can be improved with a combination of decreased tightness or tension on the heel tissue with standing and walking. This is accomplished with a heel cup/lift design for plantar fasciitis. These are typically available easily at the drugstores. If in doubt you can ask the pharmacist. You want 1 that does raise that he will and cushions it and not a whole sole padding as that does not really change the angle and tension on the plantar tissue. Use that when up and around. For the left ankle, this seems more like some irritation of the tendons and ligaments of the ankle. I would suggest a ankle brace such as a lace up type. These are also available at the drugstores. In addition to that I would suggest adding some anti-inflammatory such as ibuprofen or naproxen 2 tablets twice daily for the next week to 10 days. Add Tylenol every 4-6 hours if needed for pain. If still not improving with the above interventions, it is possible to do some topical anti-inflammatories in the area or even local injections with cortisone type anti-inflammatories but these will likely improve with the above measures most of the time. Discharge Date/Time: 12/18/22 14:51
--- NOTE | 2022-12-18 14:28 | XRAY Report ---
PROCEDURE: Ankle 3 View BILAT INDICATIONS: right heel; left malleolar pains TECHNIQUE: 3 views of the ankle were acquired. COMPARISON: None. FINDINGS: Bones: No fractures or dislocations. Ankle mortise is normally aligned. No suspicious bony lesions . Soft tissues: No tibiotalar joint effusion. Achilles tendon appears normal. IMPRESSION: No visualized acute fracture or dislocation. However, occult injury cannot be excluded. Recommend tamara rt interval imaging follow-up in 7-10 days as clinically indicated for additional evaluation. Reviewed by: Nava Briseno MD on 12/18/2022 2:27 PM PDT Approved by: Nava Briseno MD on 12/18/2022 2:27 PM PDT Station ID: [id number]
== END 2022-12-18 14:51 | disposition home or self-care (01) ==
LOC: ED 13:34
DX: M72.2 Plantar fascial fibromatosis (principal); M77.51 Other enthesopathy of right foot and ankle; Z87.891 Personal history of nicotine dependence; E10.9 Type 1 diabetes mellitus without complications; Z79.82 Long term (current) use of aspirin
CPT/HCPCS: 99283

== ENCOUNTER 2022-12-24 13:21 | Outpatient (CLI) | payer MEDICARE ==
--- NOTE | 2022-12-25 09:36 | Mammography Report ---
BILATERAL DIGITAL SCREENING MAMMOGRAM 3D/2D WITH AUGMENTATION: 12/24/2022 CLINICAL: Routine screening. Comparison is made to exam dated: 06/06/2019 mammogram - [facility]. Both breasts are almost entirely fatty (category a/<25% glandular tissue). Bilateral breast implants are present. No significant masses, calcifications, or other findings are seen in either breast. There has been no significant interval change. IMPRESSION: BENIGN There is no mammographic evidence of malignancy. A 1 year screening mammogram is recommended. Based on the Tyrer Cuzick model (a risk assessment model) the patients lifetime risk is 3.0% and her 10 year risk is 1.9%. According to the ACR, ACS, and NCCN guidelines, an annual breast MRI exam amarilys g with mammogram is recommended if the patients lifetime risk is 20% or greater. This exam was interpreted at Station ID: [id number]. NOTE: For mammograms, a report in lay terms will be sent to the patient. Approximately 15% of breast malignancies will not be visualized mammographically. In the management of a palpable breast mass, a negative mammogram must not discourage biopsy of a clinically suspicious lesion. Electronically Signed By: Dhiraj higginbotham/jenelle:12/24/2022 15:27:25 letter sent: No_Letter ACR BI-RADS Category 2: Benign Finding(s) 3342F PARENCHYMAL PATTERN: (F) - The breast(s) demonstrate(s) diffuse fatty replacement. BI-RADS CATEGORY: (2) - 2 Mammogram [id number] 1 year screening LATERALITY: (B)
== END 2022-12-24 13:22 | disposition home or self-care (01) ==
LOC: DI 13:21
DX: Z12.31 Encounter for screening mammogram for malignant neoplasm of breast (principal)

== ENCOUNTER 2024-01-07 10:40 | Outpatient (CLI) | payer MEDICARE ==
--- NOTE | 2024-01-10 10:38 | Mammography Report ---
BILATERAL DIGITAL SCREENING MAMMOGRAM 3D/2D WITH AUGMENTATION: 01/07/2024 CLINICAL: Routine screening. Comparison is made to exams dated: 12/24/2022 mammogram and 06/06/2019 mammogram - [facility]. Both breasts are heterogeneously dense, which may obscure small masses (category c / 51-75% glandular tissue). Bilateral breast implants are present. No significant masses, calcifications, or other findings are seen in either breast. There has been no significant interval change. IMPRESSION: NEGATIVE There is no mammographic evidence of malignancy. A 1 year screening mammogram is recommended. Based on the Tyrer Cuzick model (a risk assessment model) the patient's lifetime risk is 6.6% and her 10 year risk is 4.5%. According to the ACR, ACS, and NCCN guidelines, an annual breast MRI exam amarilys g with mammogram is recommended if the patient's lifetime risk is 20% or greater. This exam was interpreted at Station ID: [id number]. NOTE: For mammograms, a report in lay terms will be sent to the patient. Approximately 15% of breast malignancies will not be visualized mammographically. In the management of a palpable breast mass, a negative mammogram must not discourage biopsy of a clinically suspicious lesion. Electronically Signed By: Johnny munguia/jenelle:01/07/2024 12:48:39 letter sent: No_Letter ACR BI-RADS Category 1: Negative 3341F PARENCHYMAL PATTERN: (D) - The breast(s) demonstrate(s) heterogeneously dense fibroglandular kylah coates. BI-RADS CATEGORY: (1) - 1 RECOMMENDATION: (ANNUAL) - Recommend routine annual screening mammography. [id number] 1 year screening LATERALITY: (B)
== END 2024-01-07 10:41 | disposition home or self-care (01) ==
LOC: DI 10:40
PROVIDERS: ATTEND Internal Medicine
DX: Z12.31 Encounter for screening mammogram for malignant neoplasm of breast (principal); R92.333 Mammographic heterogeneous density, bilateral breasts; Z98.82 Breast implant status

== ENCOUNTER 2025-05-29 16:42 | Inpatient (IN) ==
--- OUTSIDE RECORDS SUMMARY | 2025-05-29 17:22 | EXTERNAL MEDICAL SUMMARY RPT | Continuity of Care Document ---
Author Organization [facility] Address [address] [place] [address] Phone Problems date description facility 2025-05-29 02:43 Unspecified fracture of shaft of left tibia, initial encounter for closed fracture [facility] 2025-05-29 02:43 Unspecified fracture of shaft of left fibula, initial encounter for closed fracture [facility] 2025-05-29 04:51 Unspecified fracture of shaft of left tibia, initial encounter for closed fracture [facility] 2025-05-29 04:51 Unspecified fracture of shaft of left fibula, initial encounter for closed fracture [facility] 2025-05-29 07:59 Unspecified fracture of shaft of left tibia, initial encounter for closed fracture [facility] 2025-05-29 07:59 Unspecified fracture of shaft of left fibula, initial encounter for closed fracture [facility] 2025-05-29 16:12 Unspecified fracture of shaft of left tibia, initial encounter for closed fracture [facility] 2025-05-29 16:12 Unspecified fracture of shaft of left fibula, initial encounter for closed fracture [employer] Results/Labs test date facility value unit notes Result panel 1 GLUCOSE, WHOLE BLOOD 2025-05-29 02:07 [employer] 314 (missing) (missing) Result panel 2 GLUCOSE, WHOLE BLOOD 2025-05-29 03:16 [employer] 322 (missing) (missing) Social History date description facility
--- NOTE | 2025-05-29 17:42 | ED Physician Documentation ---
PD HPI LOWER EXT INJURY Stated complaint Stated Complaint: LT LEG PX Chief complaint Chief Complaint: Ext Problem Additional information Additional information: 75-year-old female comes into the emergency department for altered mental status. She was here in the emergency department last night had too much to drink the night prior which caused her to have a fall with a an open compression fracture of her left tib-fib. She went home with some pain medication and went back into urgent care today for low blood pressure high heart rate and pinpoint pupils. Urgent care sent her here to the emergency department for further evaluation. Patient upon arrival to the emergency department appears to be quite obtunded she is unable to contribute anything to the history her son is at bedside and is very anxious saying that he has not been with her all day but he does not suspect that she has been drinking she has been getting more more altered as time goes on and is very worried about her. Patient unable to answer any questions at this point in time. Gin Coma Scale Assess Eye opening: To Pain Verbal response: Confused Motor response: Withdraws to Pain Total score: 10 Meds/Allgy Home Medications Ambulatory Orders Medication Instructions Recorded Confirmed blood sugar diagnostic #100 ea 09/25/24 05/29/25 blood-glucose sensor (Dexcom G7 #3 ea 09/25/24 5 Sensor device) blood-glucose,finish patcher,cont #1 ea 09/25/24 05/29/25 (Dexcom G7 Horticultural Agent) insulin aspart U-100 100 unit/mL See Rx Instructions s ubcut .before 12/26/24 05/30/25 (3 mL) subcutaneous pen (Novolog meals #15 mL FlexPen U-100 Insulin aspart) pen needle, diabetic 32 gauge x #100 ea 01/01/2505/29 5/16" (Comfort EZ Pen [place]) oxycodone-acetaminophen 5 mg-325 1 - 2 tab PO Q4H #30 tabs 05/29/25 05/30/25 mg tablet insulin glargine 100 unit/mL (3 12 - 14 unit subcut DA SHAMAR 05/30/25 05/30/25 mL) subcutaneous pen (Lantus Solostar U-100 Insulin) multivitamin 1 tab PO DAILY 05/30/25 12/0 09/19 Allergies Allergies Allergy/AdvReac Type Severity Reaction Status Date / Time No Known Drug Allergies Allergy Verified 05/29/25 17:28 [facility] Active Problems All Active Problems (Updated 05/29/25 @ 19:37 by Miguel Andujar, DO) Metabolic acidosis due to diabetes mellitus (Acute) Hyperosmolar hyperglycemic state (HHS) (Acute) Encephalopathy (Acute) DKA, type 1 (Acute) Type 2 diabetes mellitus with hyperosmolar hyperglycemic state (HHS) (Acute) Tachycardia (Acute) Hypotension (Acute) Closed head injury (Acute) Fracture of tibia and fibula (Acute) History of shoulder fracture (Acute) Diabetes type 1 (Acute) Special screening for osteoporosis (Acute) Actinic keratosis (Acute) Aftercare for healing pathologic fracture of lower extremity (Acute) Menopausal state (Acute) Other screening mammogram (Acute) Hyperlipidemia (Acute) High risk medication use (Acute) Health care maintenance (Acute) Fatigue (Acute) Encounter for screening for other disorder (Acute) Closed fracture of left proximal humerus (Acute) Degenerative joint disease of knee, right (Acute) Osteoporosis (Chronic) Lumbar strain (Chronic) Alcohol use (Chronic) Full code status (Chronic) Fall (Acute) Diabetes type 1, controlled (Acute) Patellar fracture (Acute) Surgical History Surgical History No pertinent past surgical history Family History Family History Father Diabetes Social History Social History (Updated 05/30/25 @ 13:13 by Stacie Winter PA-C) Smoking Status: Former smoker Second hand tobacco smoke exposure: No Do you dip or chew tobacco?: No Do you vape?: No Patient requests smoking cessation consult: No Initiate information on smoking cessation: No Living arrangement: At home Marital Status: Living Condition: With spouse/s.o. Level: Independent Do you feel safe in your home environment?: Yes History of physical, verbal, emotional, or financial abuse?: No ETOH Use: Wine Frequency: Daily Substance Use: denies use Are you sexually active?: Yes Retired: Yes Service: No Are you following a diet prescribed by a doctor: No Are you following a special diet: No POLST Patient has POLST: No Exam Exam Vital Signs: Vital Signs x48h Temp Pulse Resp BP Pulse Ox 05/29/25 18:36 120 H 103/50 L 98 05/29/25 17:19 36.7 C 130 H 18 93/75 97 Constitutional abnormal general appearance (lethargic), distress noted (moderate), average body habitus, limitations noted (altered mental status) and level of alertness abnormal (obtunded) HENMT normocephalic and head/scalp atraumatic Bilateral pinpoint pupils equal round and reactive Neck/C-Spine visual inspection normal Chest inspection of chest normal Respiratory breath sounds equal bilaterally and normal respiratory effort Cardiovascular normal heart rate noted and regular rhythm noted Gastrointestinal abdomen normal to inspection Genitourinary no CVA tenderness Extremities Left lower extremity splint in place, CMS intact, strong dorsalis pedis pulse Neurology Obtunded Results Vitals Vitals: Vital Signs - 24 hr 05/29/25 17:19 05/29/25 18:36 Temperature 36.7 C Temperature Source Temporal Artery Scan Pulse Rate 130 H 120 H Respiratory Rate 18 Blood Pressure 93/75 103/50 L O2 Saturation 97 98 O2 Source Room air Room air Pain Intensity 0 Oxygen O2 Source Room air EKG (time done) 1740: EKG releavant findings:: EKG personally interpreted by author of this note. Relevant findings are: Rate: Rate (enter#) (123) Rhythm: Sinus tachycardia and LAE Other comments: Other comments (LAD, left anterior fascicular block, RSR in V1 or V2) Computer interpretation: Agree with computer Labs Labs: Laboratory Tests 05/29/25 05/29/25 05/29/25 17:31 17:40 18:22 WBC 19.0 H RBC 4.14 L Hgb 12.6 Hct 40.1 MCV 96.9 MCH 30.4 MCHC 31.4 L RDW 12.7 Plt Count 408 MPV 10.3 Neut # (Auto) 16.3 H Lymph # (Auto) 0.7 L Winn # (Auto) 1.7 H Eos # (Auto) 0.0 Baso # (Auto) 0.1 Absolute Nucleated RBC 0.00 Band Neuts % (Manual) Not Reportable Abnorm Lymph % (Manual) Not Reportable Nucleated RBC % 0.0 Neutrophils # (Manual) Not Reportable Lymphocytes # (Manual) Not Reportable Monocytes # (Manual) Not Reportable Eosinophils # (Manual) Not Reportable Basophils # (Manual) Not Reportable Differential Comment MANUAL=AUTO DIFF Manual Slide Review Indicated WBC Morphology NORMAL APPEARANCE Platelet Estimate NORMAL (130-450,000) Platelet Morphology NORMAL APPEARANCE RBC Morph Micro Appear NORMAL APPEARANCE VBG pH 7.068 L* VBG pCO2 34.9 L VBG pO2 80.1 H VBG HCO3 10.2 L VBG Total CO2 11.2 L VBG O2 Saturation 91.0 H VBG Base Excess -20.2 L Sodium 133 L Potassium 5.9 H Chloride 90 L Carbon Dioxide 16 L Anion Gap 27.0 H BUN 41 H Creatinine 1.9 H Estimated GFR (MDRD) 26 L Glucose 796 H* POC Whole Bld Glucose > 600 Calcium 9.5 Total Bilirubin 0.8 AST 18 ALT 16 Alkaline Phosphatase 91 Total Protein 7.3 Albumin 4.5 Globulin 2.8 Albumin/Globulin Ratio 1.6 Urine Color Urine Clarity Urine pH Ur Specific Crescent Urine Protein Urine Glucose (UA) Urine Ketones Urine Occult Blood Urine Nitrite Urine Bilirubin Urine Urobilinogen Ur Leukocyte Esterase Ur Microscopic Review Urine Culture Comments Urine Opiates Screen Ur Buprenorphine Scrn Ur Oxycodone Screen Urine Methadone Screen Urine Fentanyl Screen Ur Barbiturates Screen Ur Tricyclics Screen Ur Phencyclidine Scrn Ur Amphetamine Screen U Methamphetamines Scrn U Benzodiazepines Scrn Urine Cocaine Screen U Cannabinoids Screen Ur Drug Screen Comment Ethyl Alcohol < 10.0 Serum Ketones SMALL H 05/29/25 18:28 WBC RBC Hgb Hct MCV MCH MCHC RDW Plt Count MPV Neut # (Auto) Lymph # (Auto) Winn # (Auto) Eos # (Auto) Baso # (Auto) Absolute Nucleated RBC Band Neuts % (Manual) Abnorm Lymph % (Manual) Nucleated RBC % Neutrophils # (Manual) Lymphocytes # (Manual) Monocytes # (Manual) Eosinophils # (Manual) Basophils # (Manual) Differential Comment Manual Slide Review WBC Morphology Platelet Estimate Platelet Morphology RBC Morph Micro Appear VBG pH VBG pCO2 VBG pO2 VBG HCO3 VBG Total CO2 VBG O2 Saturation VBG Base Excess Sodium Potassium Chloride Carbon Dioxide Anion Gap BUN Creatinine Estimated GFR (MDRD) Glucose POC Whole Bld Glucose Calcium Total Bilirubin AST ALT Alkaline Phosphatase Total Protein Albumin Globulin Albumin/Globulin Ratio Urine Color YELLOW Urine Clarity CLEAR Urine pH 6.0 Ur Specific Crescent 1.015 Urine Protein NEGATIVE Urine Glucose (UA) >=1000 H Urine Ketones 40 H Urine Occult Blood NEGATIVE Urine Nitrite NEGATIVE Urine Bilirubin NEGATIVE Urine Urobilinogen 0.2 (NORMAL) Ur Leukocyte Esterase NEGATIVE Ur Microscopic Review NOT INDICATED Urine Culture Comments NOT INDICATED Urine Opiates Screen POSITIVE H Ur Buprenorphine Scrn NEGATIVE Ur Oxycodone Screen POSITIVE H Urine Methadone Screen NEGATIVE Urine Fentanyl Screen Negative Ur Barbiturates Screen NEGATIVE Ur Tricyclics Screen NEGATIVE Ur Phencyclidine Scrn NEGATIVE Ur Amphetamine Screen NEGATIVE U Methamphetamines Scrn NEGATIVE U Benzodiazepines Scrn NEGATIVE Urine Cocaine Screen NEGATIVE U Cannabinoids Screen NEGATIVE Ur Drug Screen Comment CUTOFF CONC BELOW: Ethyl Alcohol Serum Ketones Rads (name of study) Head CT without: Relevant Findings:: Final report received and EMP independent interpretation of test Interpretation: IMPRESSION: No acute intracranial pathology. PD Medical Decision Making ED course ED course: 75-year-old female presenting with acute altered mental status. She was evaluated in the ED last night after an alcohol-related fall resulting in an open fracture of the left tibia/fibula and was discharged home with pain medication. Today she was seen at urgent care for hypotension, tachycardia, and pinpoint pupils, and was sent to the ED for further evaluation. On arrival, the patient is obtunded and unable to provide history; additional information is obtained from her son. Initial assessment reveals significant altered mentation, tachycardia (HR [id number]), borderline hypotension, and pinpoint pupils, raising concern for multiple potential etiologies including intracranial injury, sepsis, intoxication, opiate overdose, metabolic derangement, or complications of her recent fracture. Laboratory evaluation shows severe hyperglycemia (glucose 796 mg/dL), anion gap 27, bicarbonate 1016, venous pH 7.06, ketones present, JUAN M (Cr 1.9), and hyperkalemia (5.9). Findings are consistent with severe diabetic ketoacidosis (DKA) with overlapping features of hyperosmolar hyperglycemic state (HHS). Leukocytosis to 19 is present, but no clear source of infection identified on exam; this may be reactive or related to dehydration or possivblle infection onset from open fracture of LLE. Urine drug screen is positive for opiates and oxycodone, likely reflecting prescribed pain medication, though contribution to mental status changes cannot be excluded, especially in the setting of severe metabolic derangement and JUAN M decreasing clearance. Serum alcohol level is <10. No focal neurologic deficits identified on exam; GCS 10. Given her severe metabolic acidosis, profound hyperglycemia, altered mental status, and JUAN M, the patient requires aggressive fluid resuscitation, IV insulin therapy, and close electrolyte monitoring. Due to the degree of acidosis and mental status impairment, she requires ICU-level care. Initial management included IV fluids, correction of potassium abnormalities, initiation of insulin infusion protocol, continuous cardiac monitoring, and serial neurologic assessments. The differential diagnosis for her acute encephalopathy includes: * DKA/HHS-related metabolic encephalopathy (most likely) * Opiate effect given pinpoint pupils (but likely not sole cause)-no change after narcan administration * Sepsis (no clear source; lactate pending/not provided; leukocytosis present) * Intracranial injury (low suspicion based on exam; would pursue imaging if mental status fails to improve with correction of metabolic abnormalities) * Alcohol withdrawal or intoxicants (less likely with ethanol <10) Given the severity of her presentation and need for insulin infusion, electrolyte correction, and close monitoring, the case was discussed with Dr. Andujar, who agrees to accept the patient for transfer to the ICU for ongoing management of HHS/DKA with encephalopathy. Critical Care Critical Care Provided: Yes Time(min): 80 Time Includes: Direct patient care, Review records, Reassess patient, Document care, Coordinate care, Medical consult, Family consult for tx dec and See progress note Data interpretation: Labs and Pulse ox Procedures included in critical care time: Peripheral IV and Blood draw Procedures excluded from critical care time: EKG Discharge Plan Discharge Patient Disposition: 66 [facility] DC/Xfer Clinical Impression: Type 2 diabetes mellitus with hyperosmolar hyperglycemic state (HHS) Interventions: ED Admission Assessment Last Done: 05/29/25 19:49 Vitals documented within 30 minutes of discharge?: Yes
[2025-05-29 17:48] LABS: HCT - HEMATOCRIT 40.1 % (37.0-47.0); HGB - HEMOGLOBIN 12.6 g/dL (12.0-16.0); MEAN PLATELET VOLUME 10.3 fL (7.9-10.8); NRBC ABSOLUTE COUNT (AUTO) 0.00 x10^3/uL; NUCLEATED RED BLOOD CELLS AUTO 0.0 /100WBC; PLT - PLATELET COUNT 408 10^3/uL (130-450); RED CELL DISTRIBUTION WIDTH 12.7 % (12.0-15.0)
[2025-05-29 17:49] LABS: SLIDE REVIEW? Indicated
[2025-05-29 17:51] LABS: KETONES, SERUM (ACETEST) SMALL (NEGATIVE)
[2025-05-29] MEDS: NALOXONE 0.4 MG/ML VIAL IVP STA (17:56)
[2025-05-29 18:05] LABS: ETOH - ETHANOL < 10.0 mg/dL
[2025-05-29 18:12] LABS: PLATELET ESTIMATE, MANUAL NORMAL (130-450,000) (NORMAL); PLATELET MORPHOLOGY NORMAL APPEARANCE (NORMAL); RBC MORPHOLOGY (MULTIPLE) NORMAL APPEARANCE (NORMAL); WBC MORPHOLOGY (MULTIPLE) NORMAL APPEARANCE (NORMAL)
[2025-05-29] MEDS: SODIUM CHLORIDE 0.9% 2,000 ML IV STA (18:15)
[2025-05-29 18:16] LABS: ALT ALANINE AMINOTRANSFERASE 16 IU/L (10-60); AST ASPARTATE AMINOTRANSFERASE 18 IU/L (10-42); BUN - BLOOD UREA NITROGEN 41 mg/dL (6-20); CARBON DIOXIDE - CO2 16 mmol/L (21-32); CREATININE 1.9 mg/dL (0.6-1.3); GFR - MDRD 26 (>89)
[2025-05-29 18:45] LABS: GLUCOSE, URINE (UA) >=1000 mg/dL (NEGATIVE); KETONES,URINE (UA) 40 mg/dL (NEGATIVE); OCCULT BLOOD,URINE NEGATIVE (NEGATIVE)
[2025-05-29] MEDS: INSULIN REGULAR, HUMAN 300 UNIT/3 ML PEN IVP STA (18:53)
--- NOTE | 2025-05-29 18:58 | HISTORY & PHYSICAL EXAMINATION ---
Chief Complaint Chief Complaint Chief Complaint: Abnormal vital signs History of Present Illness Admitted From Admitted From:: ED History Obtained From Records Reviewed: [facility] History obtained from: EMR, Patient History of Present Illness HPI Comment/Other: Most of history is obtained from her and son are at bedside. The patient is somnolent, difficult to arouse. This is a 75-year-old female with a past medical history of diabetes, alcohol use, actinic keratosis, hyperlipidemia, and osteoporosis who was admitted with concern for DKA. Her outpatient records indicate that she has type 1 diabetes. She was last seen by Anay Lugo in August. She was in diabetes control trial at the for almost 20 years. Her home insulin regimen is reportedly 14 units glargine SQ daily, 2 to 6 units aspart SQ AC Patient was brought in by EMS last night to the ED for for a ground-level fall resulting in head injury and left lower leg pain. Found to have a distal tib- fib fracture last night. She apparently has a history of recurrent falls at home. She felt a pop in her leg when she went down. After extensive evaluation in the ED, she was sent home. Ortho had recommended splinting, keeping nonweightbearing, and having patient follow-up outpatient. She was discharged with [place]. She took 1 of those prior to her visit today at the walk-in clinic. She went to the walk-in today for referral to orthopedics. At the urgent care, her BP was 87/53 down from 120/66 in the ED the night prior. Her heart rate was up to 128. She was satting fine on room air. Afebrile. Given her unstable vital signs, she was recommended to come to the ED. In the ED she was found to have an elevated blood glucose, ultimately resulting at 796 on chemistries. Her creatinine is 1.9. CO2 16. Anion gap was 27. Potassium 5.9. Finally her WBC was 19. She does not have any transaminase elevation. Patient reportedly has a full code POLST. I do not see it on file. Meds/Allgy Home Medications Ambulatory Orders Medication Instructions Recorded Confirmed cholecalciferol (vitamin D3) 50 2,000 unit PO DAILY fr acture #30 03/09/19 05/29/25 mcg (2,000 unit) capsule (Vitamin caps D3) blood sugar diagnostic #100 ea 09/25/24 05/29/25 blood-glucose sensor (Dexcom G7 #3 ea 09/25/24 5 Sensor device) blood-glucose,lead sewage plant operator,cont #1 ea 09/25/24 05/29/25 (Dexcom G7 Lode Miner) insulin aspart U-100 100 unit/mL See Rx Instructions s ubcut .before 12/26/24 05/29/25 (3 mL) subcutaneous pen (Novolog meals #15 mL FlexPen U-100 Insulin aspart) insulin glargine 100 unit/mL (3 14 unit (0.14 mL) subc ut QDAY #15 12/26/24 05/29/25 mL) subcutaneous pen (Lantus mL Solostar U-100 Insulin) pen needle, diabetic 32 gauge x #100 ea 01/01/2505/29 5/16" (Comfort EZ Pen [place]) ondansetron 4 mg disintegrating 4 mg PO QID PRN nausea and 05/29/25 05/29/25 tablet vomiting #20 tabs oxycodone-acetaminophen 5 mg-325 1 - 2 tab PO Q4H #30 tabs 05/29/25 05/29/25 mg tablet Allergies Allergies Allergy/AdvReac Type Severity Reaction Status Date / Time No Known Drug Allergies Allergy Verified 05/29/25 17:28 PFSH Active Problems All Active Problems (Updated 05/29/25 @ 19:37 by Miguel Andujar, DO) Metabolic acidosis due to diabetes mellitus (Acute) Hyperosmolar hyperglycemic state (HHS) (Acute) Encephalopathy (Acute) DKA, type 1 (Acute) Type 2 diabetes mellitus with hyperosmolar hyperglycemic state (HHS) (Acute) Tachycardia (Acute) Hypotension (Acute) Closed head injury (Acute) Fracture of tibia and fibula (Acute) History of shoulder fracture (Acute) Diabetes type 1 (Acute) Special screening for osteoporosis (Acute) Actinic keratosis (Acute) Aftercare for healing pathologic fracture of lower extremity (Acute) Menopausal state (Acute) Other screening mammogram (Acute) Hyperlipidemia (Acute) High risk medication use (Acute) Health care maintenance (Acute) Fatigue (Acute) Encounter for screening for other disorder (Acute) Closed fracture of left proximal humerus (Acute) Degenerative joint disease of knee, right (Acute) Osteoporosis (Chronic) Lumbar strain (Chronic) Alcohol use (Chronic) Full code status (Chronic) Fall (Acute) Diabetes type 1, controlled (Acute) Patellar fracture (Acute) Surgical History Surgical History (Updated 05/29/25 @ 00:56 by Patricia Patel RN) No pertinent past surgical history Family History Family History (Updated 09/25/24 @ 13:37 by Oumar Rodriguez MA) Father Diabetes Social History Social History (Updated 05/29/25 @ 16:58 by Maurilio Gage PA-C) Smoking Status: Unknown if ever smoked Second hand tobacco smoke exposure: No Do you dip or chew tobacco?: No Do you vape?: No Living arrangement: At home Marital Status: Living Condition: With spouse/s.o. Level: Independent Do you feel safe in your home environment?: Yes History of physical, verbal, emotional, or financial abuse?: No ETOH Use: Wine Frequency: Daily Substance Use: denies use Are you sexually active?: Yes Retired: Yes Service: No Are you following a diet prescribed by a doctor: No Are you following a special diet: No POLST Patient has POLST: No Exam Exam Vital Signs: Vital Signs x48h Temp Pulse Resp BP Pulse Ox 05/29/25 18:36 120 H 103/50 L 98 05/29/25 17:19 36.7 C 130 H 18 93/75 97 GEN: Somnolent, difficult to rouse. Nontremulous. HEENT: Dried blood in the back of her head. Small hematoma. Normal appearance of external ears and nose. Hearing baseline. Anicteric conjunctiva. Mucous membranes dry. Cardiac: Regular tachycardia. No murmurs. Pulm: Lungs CTA bilaterally, no cough, no wheezes. Normal effort on room air. Abdomen: Soft, nontender, nondistended. No rebound or guarding Extremities: Left lower extremity is in a splint. Toes are warm and well- perfused. Neuro: Face symmetric. Moving all extremities. Withdraws from pain. Psych: Unable to assess. Conclusion/Plan Problem List (1) Hyperosmolar hyperglycemic state (HHS): Plan: Patient is reportedly a type I diabetic. However presentation is most consistent with HHS. She has a blood glucose on arrival is greater than 600. She has some ketones in her urine but not a profound amount. Her anion gap is extremely elevated which can occur in either state. Serum osmolality is a send out lab and less likely useful in this setting. - Will get ABG, if less than 7.2, more consistent with DKA - Trend BMP Q4H - Trend POC blood sugars every hour - Decline in serum glucose should not exceed 100 mg/dL/h - On insulin drip at 1 unit/kg - On NS, getting aggressive rehydration as she was hypovolemic on arrival - Once boluses are done, will start on 500 of NS NS at 500 cc/h - Once BG less than < 250 change to D5 1/2NS at 150cc/hr - Start basal bolus insulin once gap closed and eating, continue insulin gtt until at least 1 hour after bolus insulin given (2) Encephalopathy: Plan: Patient is somnolent, difficult to rouse She has no clear focal deficits. Her face is symmetric. She does mutter a couple of words. She had [place] earlier today. She was sent home with [place] yesterday. Reportedly only took 1 at home. Her pupils are somewhat pinpoint, she was recalcitrant to naloxone on arrival. Most likely this is metabolic encephalopathy in the setting of her HHS. I am also concerned about the delayed presentation of a subdural hematoma. Less likely opiate overdose. Tachycardic, satting fine on room air. Respiratory rate around 18 She has an elevated leukocytosis, but I suspect this may be more reactive to her HHS. She remains afebrile. No localizing symptoms. Her urine does not look infected. - Will repeat CT head - Treat HHS as above (3) Diabetes type 1: Plan: Patient with longstanding history of type 1 diabetes. She is on 14 units glargine daily as well as 2 to 6 units aspart with meals. Her family is unaware of any missed doses of this. She has never had a hyperglycemic event like this. She has not had regular hypoglycemic events, though her son says that sometimes she gets sleepy when she skips meals. - Manage HHS as above - When appropriate resume basal insulin at 10 units glargine daily - When appropriate started on carb controlled diet and low-dose correctional insulin (4) Fracture of tibia and fibula: Plan: Patient fell in her prior admission. She fractured her distal tib-fib of her left lower extremity. She is in a splint. She was to follow-up with orthopedics outpatient. - Would consult orthopedics on 05/30 to see if they wish to do anything while she is admitted - Pain control with as needed Tylenol and oxycodone - Placing indwelling Rust as she will be difficult to mobilize and important to track strict I/O with her DKA. Qualifiers: Encounter type: initial encounter Fracture type: closed Laterality: l eft Qualified Code(s): S82.202A - Unspecified fracture of shaft of left tibia, initial encounter for closed fracture; S82.402A - Unspecified fracture of shaft of left fibula, initial encounter for closed fracture (5) Closed head injury: Plan: Patient fell in the night before admission. She hit the back of her head. Negative CT head at that time. Will repeat as above. - Low threshold to repeat CTH for acute change in mentation Qualifiers: Encounter type: initial encounter Qualified Code(s): S09.90XA - Unspecified injury of head, initial encounter (6) Metabolic acidosis due to diabetes mellitus: Plan: Profound metabolic acidosis. Anion gap of 27. Lactate of 6.7. - Her encephalopathy is likely due to her profound acidotic state. Getting ABG, will start bicarb if pH less than 6.9 - Repeat BMP now and then every 6 hours as above - Trend lactates every 4 hours until normalizing - Patient at risk of distributive shock, Levophed available, admitting to ICU (7) Alcohol use: Plan: Patient's family is unclear about her drinking history totally. They feel like she drinks intermittently, but she has had episodes of getting extremely drunk. She drank wine last night. They are unclear on whether she drinks daily. She might drink daily. Serum alcohol was undetectable on admission. She is not tremulous. She is somnolent as above. Other than tachycardia, no signs of alcohol withdrawal. Her liver functions are normal. No signs of cirrhosis biochemically. - Monitor clinically for signs of alcohol withdrawal - Not ordering benzodiazepines at this time in order to not further muddy the picture of her encephalopathy Plan Plan by problem as above. I spent a total of 79 minutes in the care of this patient today. This time was spent reviewing labs, vital signs, imaging, interviewing and examining the patient, and discussing plan of care with them and their other care providers. Patient has an acute exacerbation of a chronic condition with threat to life and bodily function. Decision was made to admit the patient to the [facility] [id number] Lab Results 05/29/25 18:55 05/29/25 17:40
[2025-05-29] MEDS: INSULIN REGULAR IN 0.9 % NS 100 UNIT/100 ML BAG IV STA (18:59)
[2025-05-29 19:09] LABS: AMPHETAMINE SCREEN,URINE NEGATIVE (NEGATIVE); BARBITURATE SCREEN,UR NEGATIVE (NEGATIVE); BENZODIAZEPINES SCREEN, URINE NEGATIVE (NEGATIVE); BUPRENORPHINE SCREEN, URINE NEGATIVE (NEGATIVE); COCAINE SCREEN URINE NEGATIVE (NEGATIVE); METHADONE SCREEN, URINE NEGATIVE (NEGATIVE); METHAMPHETAMINES SCREEN, URINE NEGATIVE (NEGATIVE); OPIATE SCREEN, URINE POSITIVE (NEGATIVE); THC CANNABINOID SCREEN, URINE NEGATIVE (NEGATIVE)
[2025-05-29] MEDS: SODIUM CHLORIDE 0.9% 1,000 ML IV SCH ×2 (19:09→20:32)
[2025-05-29 19:13] LABS: HCT - HEMATOCRIT 36.0 % (37.0-47.0); HGB - HEMOGLOBIN 11.1 g/dL (12.0-16.0); MEAN PLATELET VOLUME 10.5 fL (7.9-10.8); PLT - PLATELET COUNT 343 10^3/uL (130-450); RED CELL DISTRIBUTION WIDTH 12.9 % (12.0-15.0)
--- OUTSIDE RECORDS SUMMARY | 2025-05-29 19:13 | EXTERNAL MEDICAL SUMMARY RPT | Continuity of Care Document ---
Author Organization [facility] Address [address] [place] [address] Phone Problems date description facility 2025-05-29 02:43 Unspecified fracture of shaft of left tibia, initial encounter for closed fracture [facility] 2025-05-29 02:43 Unspecified fracture of shaft of left fibula, initial encounter for closed fracture [facility] 2025-05-29 04:51 Unspecified fracture of shaft of left tibia, initial encounter for closed fracture [facility] 2025-05-29 04:51 Unspecified fracture of shaft of left fibula, initial encounter for closed fracture [facility] 2025-05-29 07:59 Unspecified fracture of shaft of left tibia, initial encounter for closed fracture [facility] 2025-05-29 07:59 Unspecified fracture of shaft of left fibula, initial encounter for closed fracture [facility] 2025-05-29 16:12 Unspecified fracture of shaft of left tibia, initial encounter for closed fracture [facility] 2025-05-29 16:12 Unspecified fracture of shaft of left fibula, initial encounter for closed fracture [facility] 2025-05-29 17:28 Hypotension, unspecified [facility] 2025-05-29 17:28 Tachycardia, unspecified [facility] 2025-05-29 17:28 Unspecified injury of head, ini tial encounter [facility] 2025-05-29 17:28 Unspecified fracture of shaft of left tibia, initial encounter for closed fracture [facility] 2025-05-29 17:28 Unspecified fracture of shaft of left fibula, initial encounter for closed fracture [facility] Results/Labs test date facility value unit notes Result panel 1 GLUCOSE, WHOLE BLOOD 2025-05-29 02:07 [facility] 314 (missing) (missing) Result panel 2 GLUCOSE, WHOLE BLOOD 2025-05-29 03:16 [facility] 322 (missing) (missing) Result panel 3 GLUCOSE, WHOLE BLOOD 2025-05-29 17:31 [email or web address] > 600 (missing) (missing) Result panel 4 ETOH - ETHANOL 2025-05-29 17:40 [email or web address] 10.0 mg/dl Blood Alcohol Levels Level Sporadic Drinkers Chronic drinkers 100 mg/dL Legally intoxicated* Minimal signs 200-250 mg/dL Alertness lost, Effort needed to becoming lethargic maintain emotional and motor control 300-350 mg/dL Stupor to coma Drowsy and slow >500 mg/dL Possible Coma *The legal definition of intoxication varies. This assy is for medical decision making only. As of December 2022 testing method has changed, this may include reference ranges. NUCLEATED RED BLOOD CELLS AUTO 2025-05-29 17:40 [facility] 0.0 /100wbc (missing) EOSINOPHILS # (AUTO) 2025-05-29 17:40 [facility] 0.0 10 3/ul (missing) NRBC ABSOLUTE COUNT (AUTO) 2025-05-29 17:40 [facility] 0.00 x10 3/ul (missing) BASOPHILS # (AUTO) 2025-05-29 17:40 [facility] 0.1 10 3/ul (missing) LYMPHOCYTES # (AUTO) 2025-05-29 17:40 [facility] 0.7 10 3/ul (missing) BILIRUBIN,TOTAL 2025-05-29 17:40 [facility] 0.8 mg/dl As of December 2022 test ing method has changed, this may include reference ranges. ALBUMIN/GLOBULIN RATIO 2025-05-29 17:40 [facility] 1.6 (missin g) (missing) MONOCYTES # (AUTO) 2025-05-29 17:40 [facility] 1.7 10 3/ul (missing) CREATININE 2025-05-29 17:40 [facility] 1.9 mg/dl As of December 2022 test ing method has changed, this may include reference ranges. MEAN PLATELET VOLUME 2025-05-29 17:40 [facility] 10.3 fl (missing) HGB - HEMOGLOBIN 2025-05-29 17:40 [facility] 12.6 g/dl (missing) RED CELL DISTRIBUTION WIDTH 2025-05-29 17:40 [facility] 12.7 % (missing) SODIUM 2025-05-29 17:40 [facility] 133 mmol/l (missing) ALT ALANINE AMINOTRANSFERASE 2025-05-29 17:40 [facility] 16 iu/l As of December 2022 test ing method has changed, this may include reference ranges. CARBON DIOXIDE - CO2 2025-05-29 17:40 [facility] 16 mmol/l As of December 2022 test ing method has changed, this may include reference ranges. NEUTROPHILS # (AUTO) 2025-05-29 17:40 [facility] 16.3 10 3/ul (missing) AST ASPARTATE AMINOTRANSFERASE 2025-05-29 17:40 [facility] 18 iu/l As of December 2022 test ing method has changed, this may include reference ranges. WHITE BLOOD COUNT 2025-05-29 17:40 [facility] 19.0 x10 3/ul (missing) GLOBULIN 2025-05-29 17:40 [facility] 2.8 g/dl (missing) GFR - MDRD 2025-05-29 17:40 [facility] 26 (missin g) The IDMS-traceable MDRD Study Equation has been validated extensively in and populations between the ages of 18 and 70 with impaired kidney function (eGFR < 60 mL/min/1.73m2) and has shown good performance for patients with all common causes of kidney disease. Although this equation has not been validated for patients older than 70, an MDRD-derived eGFR may still be a useful tool for providers caring for patients older than 70. References: http://www.nkdep.nih.go v/lab-evaluation/gfr/cr eatinine-stand ardization, last updated August 2011. ANION GAP 2025-05-29 17:40 [facility] 27.0 (missin g) (missing) MEAN CORPUSCULAR HEMOGLOBIN 2025-05-29 17:40 [facility] 30.4 pg (missing) MEAN CORPUSCULAR HGB CONC 2025-05-29 17:40 [facility] 31.4 g/dl (missing) RED BLOOD COUNT 2025-05-29 17:40 [facility] 4.14 10 6/ul (missing) ALBUMIN 2025-05-29 17:40 [facility] 4.5 g/dl As of December 2022 test ing method has changed, this may include reference ranges. HCT - HEMATOCRIT 2025-05-29 17:40 [facility] 40.1 % (missing) PLT - PLATELET COUNT 2025-05-29 17:40 [facility] 408 10 3/ul (missing) BUN - BLOOD UREA NITROGEN 2025-05-29 17:40 [facility] 41 mg/dl As of December 2022 test ing method has changed, this may include reference ranges. POTASSIUM 2025-05-29 17:40 [facility] 5.9 mmol/l As of December 2022 test ing method has changed, this may include reference ranges. TOTAL PROTEIN 2025-05-29 17:40 [facility] 7.3 g/dl As of December 2022 test ing method has changed, this may include reference ranges. GLUCOSE 2025-05-29 17:40 [facility] 796 mg/dl Critical result GLU 796 mg/dL called to and read back by NAMITA Melendez RN at 29-May-2025 18:15 by [email or web address]. As of December 2022 testing method has changed, this may include reference ranges. CALCIUM 2025-05-29 17:40 [facility] 9.5 mg/dl As of December 2022 test ing method has changed, this may include reference ranges. CHLORIDE 2025-05-29 17:40 [facility] 90 mmol/l As of December 2022 test ing method has changed, this may include reference ranges. ALKALINE PHOSPHATASE 2025-05-29 17:40 [facility] 91 iu/l As of December 2022 test ing method has changed, this may include reference ranges. MEAN CORPUSCULAR VOLUME 2025-05-29 17:40 [facility] 96.9 fl (missing) SLIDE REVIEW? 2025-05-29 17:40 [facility] Indicated (missin g) (missing) DIFFERENTIAL COMMENT 2025-05-29 17:40 [facility] MANUAL=AUTO DIFF (missin g) MANUAL DIFFERENTIAL AGREES WITH AUTO DIFFERENTIAL PLATELET ESTIMATE, MANUAL 2025-05-29 17:40 [facility] NORMAL (130-450,000) (missin g) (missing) PLATELET MORPHOLOGY 2025-05-29 17:40 [facility] NORMAL APPEARANCE (missin g) (missing) RBC MORPHOLOGY (MULTIPLE) 2025-05-29 17:40 [facility] NORMAL APPEARANCE (missin g) (missing) WBC MORPHOLOGY (MULTIPLE) 2025-05-29 17:40 [facility] NORMAL APPEARANCE (missin g) (missing) KETONES, SERUM (ACETEST) 2025-05-29 17:40 [facility] SMALL (missin g) (missing) Result panel 5 GLUCOSE, URINE (UA) 2025-05-29 18:28 [facility] >=1000 mg/dl (missing) UROBILINOGEN,URINE 2025-05-29 18:28 [facility] 0.2 (NORMAL) e.u./dl (missing) SPECIFIC GRAVITY,URINE 2025-05-29 18:28 [facility] 1.015 (missing) (missing) KETONES,URINE (UA) 2025-05-29 18:28 [facility] 40 mg/dl (missing) PH,URINE 2025-05-29 18:28 [facility] 6.0 ph (missing) CLARITY,URINE 2025-05-29 18:28 [facility] CLEAR (missing) (missing) MUDS CUTOFF CONCENTRATIONS 2025-05-29 18:28 [facility] CUTOFF CONC BELOW: (missing) [facility] uses the PROFILE-V 10X10 Room Drugs of Abuse Test System. It detects drug classes at the following cutoff concentrations: AMP Amphetamine (d-Amphetamine) 500 ng/mL BAR Barbiturates (Butalbital) 200 ng/mL BZO Benzodiazepines (Nordiazepam) 150 ng/mL BUP Buprenorphine (Buprenorphine) 10 ng/mL TAMMY Cocaine (Benzoylecgonine) 150 ng/mL MAMP Methamphetamine (d-Methamphetamine) 500 ng/mL MTD Methadone (Methadone) 200 ng/mL OPI Opiates (Morphine) 100 ng/mL OXY Oxycodone (Oxycodone) 100 ng/mL PCP Phencyclidine (Phencyclidine) 25 ng/mL BUP Buprenorphine (Buprenorphine) 10 ng/mL THC Cannabinoids (90-tnb-0-carboxy-9 -THC) 50 ng/mL TCA Tricyclic Antidepressants (Desipramine) 300 ng/mL All drug screen results are unconfirmed. Results are to be used for medical (i.e. treatment) purposes only. Unconfirmed screening results must not be used for non-medical purposes (e.g., employment testing, legal testing). LEUKOCYTE ESTERASE, URINE 2025-05-29 18:28 [facility] NEGATIVE (missing) (missing) NITRITE,URINE 2025-05-29 18:28 [facility] NEGATIVE (missing) (missing) OCCULT BLOOD,URINE 2025-05-29 18:28 [facility] NEGATIVE (missing) (missing) BILIRUBIN,URINE 2025-05-29 18:28 [facility] NEGATIVE (missing) Bilirubin can be influenced by color interference. Please correlate positive results with clinical presentation PROTEIN,URINE 2025-05-29 18:28 [facility] NEGATIVE mg/dl (missing) UR CULTURE IF IND 2025-05-29 18:28 [facility] NOT INDICATED (missing) (missing) URINE MICROSCOPIC INDICATED? 2025-05-29 18:28 [facility] NOT INDICATED (missing) (missing) COLOR,URINE 2025-05-29 18:28 [facility] YELLOW (missing) URINE CATHETERIZED Social History date description facility
[2025-05-29 19:19] LABS: VBG BASE EXCESS -20.2 mmol/L (-2 - +2); VBG PCO2 34.9 mmHg (41-51); VBG PO2 80.1 mmHg (25-47); VBG TOTAL CO2 11.2 mmol/L (24-29)
[2025-05-29 19:20] LABS: VBG PH 7.068 (7.31-7.41)
[2025-05-29 19:22] LABS: SLIDE REVIEW? Indicated
[2025-05-29 19:23] LABS: ABNORMAL LYMPHS % (MANUAL) 0 %; BASOPHILS # (MANUAL) 0.0 10^3/uL (0-0.1); EOSINOPHILS # (MANUAL) 0.0 10^3/uL (0-0.7)
[2025-05-29] MEDS ORDERED: oxyCODONE 5 MG TABLET PO PRN (19:26)
[2025-05-29 19:44] LABS: BAND NEUTROPHILS % (MANUAL) 2 %; LYMPHOCYTES # (MANUAL) 0.7 10^3/uL (1.5-3.5); LYMPHOCYTES % (MANUAL) 4 %; METAMYELOCYTES % (MANUAL) 4 %; MONOCYTES # (MANUAL) 1.5 10^3/uL (0.0-1.0); NEUTROPHILS # (MANUAL) 15.3 10^3/uL (1.5-6.6)
[2025-05-29 19:46] LABS: PLATELET ESTIMATE, MANUAL NORMAL (130-450,000) (NORMAL); PLATELET MORPHOLOGY NORMAL APPEARANCE (NORMAL); RBC MORPHOLOGY (MULTIPLE) NORMAL APPEARANCE (NORMAL); WBC MORPHOLOGY (MULTIPLE) 1+ VACUOLATION (NORMAL)
[2025-05-29 19:48] LABS: BUN - BLOOD UREA NITROGEN 40.0 mg/dL (6-20); CARBON DIOXIDE - CO2 10.0 mmol/L (21-32); CREATININE 1.8 mg/dL (0.6-1.3); GFR - MDRD 28.0 (>89)
--- NOTE | 2025-05-29 20:18 | CT Report ---
PROCEDURE: CT Head WO INDICATIONS: ams TECHNIQUE: CT of the head was performed, without intravenous contrast. Reformats: Coronal and sagittal. For radiation dose reduction, the following was used: automated exposure control, adjustment of mA and/or kV according to patient size. COMPARISON: None. FINDINGS: Image quality: Diagnostic. CSF spaces: Basal cisterns are patent. No extra-axial fluid collections. Moderate global parenchymal volume loss with associated prominence of the extra- axial spaces and ventricles. Brain: No midline shift. No intracranial mass effect or hemorrhage. Johnson- white matter interface is normal. Mild periventricular and white matter hypodensities, suggestive of chronic small vessel ischemic disease Skull and face: Calvarium and visualized facial bones are intact, without suspicious lesions. Sinuses: Visualized sinuses and mastoids are clear. IMPRESSION: No acute intracranial pathology. Reviewed by: John Cerda MD on 05/29/2025 8:15 PM PST Approved by: John Cerda MD on 05/29/2025 8:15 PM PST Station ID: [id number]
[2025-05-29] MEDS: SODIUM CHLORIDE FLUSH 0.9% 10 ML SYRINGE IVP PRN (20:54)
[2025-05-29 21:27] LABS: ABG OXYGEN SATURATION 98 % (95-98); ABG PCO2 27 mmHg (34-45); ABG PH 7.22 (7.35-7.45); ABG PO2 90 mmHg (83-108)
[2025-05-29 21:28] LABS: ABG BASE EXCESS -17.0 mmol/L (-2.0-3.0); ABG HCO3 10.9 mmol/L (22.0-26.0)
[2025-05-29 21:29] LABS: ABG FRACTION OF INSPIRED O2 21.00; ABG TCO2 11.7 mmol/L (21.0-29.0)
[2025-05-30 00:25] LABS: BUN - BLOOD UREA NITROGEN 35.0 mg/dL (6-20); CARBON DIOXIDE - CO2 21.0 mmol/L (21-32); CREATININE 1.6 mg/dL (0.6-1.3); GFR - MDRD 32.0 (>89)
[2025-05-30] MEDS: SODIUM CHLORIDE 0.9% 500 ML IV ONE ×4 (00:35→07:28)
[2025-05-30] MEDS: SODIUM CHLORIDE FLUSH 0.9% 10 ML SYRINGE IVP SCH (00:36)
[2025-05-30] MEDS ORDERED: PHENYLEPHRINE 10 MG/ML VIAL ONE (02:43)
[2025-05-30] MEDS: DEXTROSE 5%-0.45% NACL 1,000 ML IV PRN (03:03)
[2025-05-30 04:39] LABS: HCT - HEMATOCRIT 32.2 % (37.0-47.0); HGB - HEMOGLOBIN 10.1 g/dL (12.0-16.0); MEAN PLATELET VOLUME 10.1 fL (7.9-10.8); PLT - PLATELET COUNT 250 10^3/uL (130-450); RED CELL DISTRIBUTION WIDTH 12.9 % (12.0-15.0)
[2025-05-30 04:47] LABS: VBG PH 7.294 (7.31-7.41)
[2025-05-30 04:50] LABS: ABNORMAL LYMPHS % (MANUAL) 0 %; BASOPHILS # (MANUAL) 0.0 10^3/uL (0-0.1); EOSINOPHILS # (MANUAL) 0.0 10^3/uL (0-0.7)
[2025-05-30 04:52] LABS: BUN - BLOOD UREA NITROGEN 31.0 mg/dL (6-20); CARBON DIOXIDE - CO2 20.0 mmol/L (21-32); CREATININE 1.4 mg/dL (0.6-1.3); GFR - MDRD 37.0 (>89)
[2025-05-30 04:54] LABS: PHOSPHORUS 2.3 mg/dL (2.5-5.0)
[2025-05-30] MEDS: CALCIUM GLUC 1,000MG/50ML-NACL 1,000 MG/50 ML BAG IV ONE (05:12)
[2025-05-30] MEDS ORDERED: INSULIN REGULAR IN 0.9 % NS 100 UNIT/100 ML BAG IV ONE (05:18)
[2025-05-30] MEDS: POTASSIUM CHLOR 10 MEQ/100 ML 10 MEQ/100 ML BAG IV SCH (05:49)
[2025-05-30] MEDS: INSULIN REGULAR IN 0.9 % NS 100 UNIT/100 ML BAG IV SCH (05:59)
[2025-05-30 06:31] LABS: BAND NEUTROPHILS % (MANUAL) 3 %; LYMPHOCYTES # (MANUAL) 1.3 10^3/uL (1.5-3.5); LYMPHOCYTES % (MANUAL) 8 %; MONOCYTES # (MANUAL) 1.0 10^3/uL (0.0-1.0); NEUTROPHILS # (MANUAL) 14.4 10^3/uL (1.5-6.6); PLATELET ESTIMATE, MANUAL NORMAL (130-450,000) (NORMAL); PLATELET MORPHOLOGY NORMAL APPEARANCE (NORMAL); RBC MORPHOLOGY (MULTIPLE) NORMAL APPEARANCE (NORMAL); WBC MORPHOLOGY (MULTIPLE) NORMAL APPEARANCE (NORMAL)
[2025-05-30] MEDS: INSULIN LISPRO 300 UNIT/3 ML PEN SUBQ SCH ×2 (08:01→17:08)
[2025-05-30 08:17] LABS: BUN - BLOOD UREA NITROGEN 28.0 mg/dL (6-20); CARBON DIOXIDE - CO2 21.0 mmol/L (21-32); CREATININE 1.3 mg/dL (0.6-1.3); GFR - MDRD 40.0 (>89)
[2025-05-30] MEDS: SODIUM PHOSPHATE 15 MMOL in SODIUM CHLORIDE 0.9% 250 ML IV ONE (09:31)
[2025-05-30] MEDS: INSULIN GLARGINE-YFGN 300 UNIT/3 ML PEN SUBQ ONE (10:02)
--- NOTE | 2025-05-30 10:14 | PHARMACY PROGRESS NOTE ---
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 #1 ea 09/25/24 05/29/25 Rx (Dexcom G7 Calender Inspector) insulin aspart U-100 100 unit/mL See Rx Instructions s ubcut .before 12/26/24 05/30/25 Rx (3 mL) subcutaneous pen (Novolog meals #15 mL FlexPen U-100 Insulin aspart) pen needle, diabetic 32 gauge x #100 ea 01/01/2505/29 Rx 5/16" (Comfort EZ Pen [place]) oxycodone-acetaminophen 5 mg-325 1 - 2 tab PO Q4H #30 tabs 05/29/25 05/30/25 Rx mg tablet insulin glargine 100 unit/mL (3 12 - 14 unit subcut DA SHAMAR 05/30/25 05/30/25 History mL) subcutaneous pen (Lantus Solostar U-100 Insulin) multivitamin 1 tab PO DAILY 05/30/2509/19 History Processed by: Pharmacy (Medication reconciliation completed by Commercial InsulatorKemi) Medications reviewed in ED?: No Medication History completed: Yes Patient Interview: Completed Secondary Source(s): Insurance records [facility] Statement: As the person ultimately responsible for medication therapy, providers are able to order a medication from an existing home medication list in [facility] via the "Reconcile Routine" prior to Confirmation of that medication by clerical support specialist. Such practice is discouraged except when the physician, in their clinical judgment, deems that a medical need exists for a medication without regard to previous use.
--- NOTE | 2025-05-30 10:19 | PROVIDER PROGRESS NOTE ---
Subjective Subjective Subjective: This morning, patient states that she's feeling a lot better. She denies any fevers, chills, shortness of breath, nausea, episodes of emesis. She has some pain in the left leg. She is eager to speak with orthopedic surgery regarding the fracture. Will change to Med/Surg status. Current Medications Current Medications Current Medications: Current Medications Generic Name Dose Route Start Last Admin Trade Name Freq PRN Reason Stop Dose Admin Acetaminophen 650 mg 05/29/25 19:26 Acetaminophen 325 Mg Tablet PO Q4HR PRN Pain 1 to 4, or Fever Sodium Chloride 1,000 mls @ 75 mls/hr 05/29/25 20:00 05/30/25 08:04 Normal Saline 0.9% IV 250 mls/hr .[id number] JASON Administration Protocol Sodium Phosphate 15 mmol/ 255 mls @ 63.75 mls/hr 05/30/25 09:09 05/30/25 09:31 Sodium Chloride IV 05/30/25 13:08 63.75 mls/hr ONCE ONE Administration Protocol Insulin Human Lispro 1 - 5 unit 05/30/25 08:00 05/30/25 08:01 Insulin Lispro 300 Unit/3 Ml Pen SUBQ Not Given 0800,1200,1700,2100 [facility] Protocol Oxycodone HCl 5 mg 05/29/25 19:26 Oxycodone 5 Mg Tablet PO Q4HR PRN Pain 5 to 7 Sodium Chloride 10 ml 05/30/25 01:00 05/30/25 08:04 Sodium Chloride Flush 0.9% 10 Ml Syringe IVP 10 ml 0100,0900,1700 JASON Administration Sodium Chloride 10 ml 05/29/25 19:26 05/29/25 20:54 Sodium Chloride Flush 0.9% 10 Ml Syringe IVP 10 ml PRN PRN Administration NEEDED PER PROVIDER ORDERS Objective Vital Signs/Intake & Output Reviewed Vital Signs: Yes Vital Signs: Vital Signs x48h Temp Pulse Pulse Resp BP BP Pulse Ox 05/30/25 10:00 100.0 F 96 21 104/58 L 92 05/30/25 09:00 99.9 F 105 H 16 102/59 L 95 05/30/25 08:00 99.9 F 112 H 14 93/66 93 05/30/25 07:00 99.7 F 99 18 91/52 L 94 05/30/25 06:50 97 100/60 05/30/25 06:45 100 88/52 L 05/30/25 06:40 92 98/57 L 05/30/25 06:35 94 96/64 05/30/25 06:30 100 101/67 05/30/25 06:25 94 111/61 05/30/25 06:20 93 102/57 L 05/30/25 06:15 97 116/78 05/30/25 06:10 84 109/68 05/30/25 06:05 84 119/67 05/30/25 06:00 99.9 F 100 15 125/71 95 05/30/25 05:00 99.9 F 102 H 17 119/67 95 05/30/25 05:00 99.7 F 98 16 119/67 91 L 05/30/25 04:30 99.9 F 110 H 17 117/73 94 05/30/25 04:15 99.7 F 86 15 111/64 95 05/30/25 04:00 99.7 F 89 15 117/69 94 05/30/25 04:00 99.7 F 92 17 117/69 95 05/30/25 03:45 99.7 F 100 22 121/64 95 05/30/25 03:30 99.5 F 86 14 114/74 94 05/30/25 03:30 99.1 F 86 15 114/74 94 05/30/25 03:20 99.1 F 87 13 104/78 94 05/30/25 03:20 99.0 F 98 22 104/78 93 05/30/25 03:15 99.1 F 92 15 113/75 93 05/30/25 03:15 99.1 F 93 16 113/75 93 05/30/25 03:10 99.1 F 100 20 113/67 94 05/30/25 03:10 99.1 F 104 H 22 113/67 92 05/30/25 03:07 99.1 F 99 19 111/62 92 05/30/25 03:07 99.1 F 92 17 111/62 92 05/30/25 03:00 99.1 F 100 18 82/54 L 93 05/30/25 03:00 99.1 F 107 H 18 82/54 L 93 05/30/25 02:21 99.1 F 99 17 88/54 L 92 05/30/25 02:20 99.1 F 104 H 20 73/50 L 94 Intake & Output: Intake & Output 05/27/25 05/28/25 05/29/25 05/30/25 23:59 23:59 23:59 23:59 Intake Total 3167 / 3167 4097 / 4097 Output Total 485 / 485 325 / 325 Balance 2682 / 2682 3772 / 3772 Weight (kg) 59 kg 61.5 kg Objective General Appearance: positive No acute distress and Alert; negative Anxious Eyes Bilateral: positive Normal inspection, PERRL and EOMI ENT: positive ENT inspection nml, Pharynx nml and No signs of dehydration Neck: positive Nml inspection, Thyroid nml and No JVD Respiratory: positive Chest non-tender, No respiratory distress and Breath sounds nml; negative Wheezes, Rales or Rhonchi Cardiovascular: positive No murmur, No gallop and Tachycardia; negative Systolic murmur Abdomen: positive Non-tender, No organomegaly and No distention; negative Guarding or Splenomegaly Back: positive Nml inspection; negative CVA tenderness (R) or CVA tenderness (L) Skin: positive Color nml, No rash, Warm and Dry Extremities: positive Other (LLE in cast; toes warm to touch, able to wiggle toes ) Neurologic/Psychiatric: positive Oriented x3, Motor nml and Mood/affect nml Lab Results 05/30/25 04:28 05/30/25 07:55 Other Labs: Lab Results x24hrs 05/30/25 05/30/25 05/30/25 Range/Units 08:59 07:55 07:54 WBC (4.8-10.8) x10^3/uL RBC (4.20-5.40) 10^6/uL Hgb (12.0-16.0) g/dL Hct (37.0-47.0) % MCV (81.0-99.0) fL MCH (27.0-31.0) pg MCHC (32.0-36.0) g/dL RDW (12.0-15.0) % Plt Count (130-450) 10^3/uL MPV (7.9-10.8) fL Neut # (Auto) (1.5-6.6) 10^3/uL Lymph # (Auto) (1.5-3.5) 10^3/uL [place] # (Auto) (0.0-1.0) 10^3/uL Eos # (Auto) (0.0-0.7) 10^3/uL Baso # (Auto) (0.0-0.1) 10^3/uL Absolute Nucleated RBC x10^3/uL Total Counted Band Neuts % (Manual) Abnorm Lymph % (Manual) Metamyelocytes % ( - 0) % Nucleated RBC % /100WBC Neutrophils # (Manual) Lymphocytes # (Manual) Monocytes # (Manual) Eosinophils # (Manual) Basophils # (Manual) Differential Comment Manual Slide Review WBC Morphology (NORMAL) Platelet Estimate (NORMAL) Platelet Morphology (NORMAL) RBC Morph Micro Appear (NORMAL) Bld Gas Analysis Time Sample Site ABG pH (7.35-7.45) ABG pCO2 (34-45) mmHg ABG pO2 (83-108) mmHg ABG HCO3 (22.0-26.0) mmol/L ABG Total CO2 (21.0-29.0) mmol/L ABG O2 Saturation (95-98) % ABG Base Excess (-2.0-3.0) mmol/L Isaac Test VBG pH (7.31-7.41) VBG pCO2 (41-51) mmHg VBG pO2 (25-47) mmHg VBG HCO3 (23-28) mmol/L VBG Total CO2 (24-29) mmol/L VBG O2 Saturation (60-80) % VBG Base Excess (-2 - +2) mmol/L Ionized Calcium (1.09-1.30) mmol/L O2 Delivery Device FiO2 Sodium 144 (135-145) mmol/L Potassium 4.0 (3.5-4.5) mmol/L Chloride 118 H (101-111) mmol/L Carbon Dioxide 21 (21-32) mmol/L Anion Gap 5.0 L (6-13) BUN 28 H (6-20) mg/dL Creatinine 1.3 (0.6-1.3) mg/dL Estimated GFR (MDRD) 40 L (>89) Glucose 78 (74-104) mg/dL POC Whole Bld Glucose 75 72 (70-100) mg/dL Lactic Acid (0.5-2.2) mmol/L Calcium 7.5 L (8.5-10.3) mg/dL Phosphorus 2.3 L (2.5-5.0) mg/dL Magnesium (1.7-2.3) mg/dL Total Bilirubin (0.2-1.0) mg/dL AST (10-42) IU/L ALT (10-60) IU/L Alkaline Phosphatase (42-121) IU/L Total Protein (6.4-8.9) g/dL Albumin (3.2-5.5) g/dL Globulin (2.1-4.2) g/dL Albumin/Globulin Ratio (1.0-2.2) Lipase Urine Color Urine Clarity (CLEAR) Urine pH (5.0-7.5) PH Ur Specific [place] (1.002-1.030) Urine Protein (NEGATIVE) mg/dL Urine Glucose (UA) (NEGATIVE) mg/dL Urine Ketones (NEGATIVE) mg/dL Urine Occult Blood (NEGATIVE) Urine Nitrite (NEGATIVE) Urine Bilirubin (NEGATIVE) Urine Urobilinogen (NORMAL) E.U./dL Ur Leukocyte Esterase (NEGATIVE) Ur Microscopic Review Urine Culture Comments Nasal Screen MRSA (PCR) (NEGATIVE) Urine Opiates Screen (NEGATIVE) Ur Buprenorphine Scrn (NEGATIVE) Ur Oxycodone Screen (NEGATIVE) Urine Methadone Screen (NEGATIVE) Urine Fentanyl Screen (NEGATIVE) Ur Barbiturates Screen (NEGATIVE) Ur Tricyclics Screen (NEGATIVE) Ur Phencyclidine Scrn (NEGATIVE) Ur Amphetamine Screen (NEGATIVE) U Methamphetamines Scrn (NEGATIVE) U Benzodiazepines Scrn (NEGATIVE) Urine Cocaine Screen (NEGATIVE) U Cannabinoids Screen (NEGATIVE) Ur Drug Screen Comment Ethyl Alcohol mg/dL Serum Ketones (NEGATIVE) 05/30/25 05/30/25 05/30/25 Range/Units 06:57 05:55 04:57 WBC (4.8-10.8) x10^3/uL RBC (4.20-5.40) 10^6/uL Hgb (12.0-16.0) g/dL Hct (37.0-47.0) % MCV (81.0-99.0) fL MCH (27.0-31.0) pg MCHC (32.0-36.0) g/dL RDW (12.0-15.0) % Plt Count (130-450) 10^3/uL MPV (7.9-10.8) fL Neut # (Auto) (1.5-6.6) 10^3/uL Lymph # (Auto) (1.5-3.5) 10^3/uL [place] # (Auto) (0.0-1.0) 10^3/uL Eos # (Auto) (0.0-0.7) 10^3/uL Baso # (Auto) (0.0-0.1) 10^3/uL Absolute Nucleated RBC x10^3/uL Total Counted Band Neuts % (Manual) Abnorm Lymph % (Manual) Metamyelocytes % ( - 0) % Nucleated RBC % /100WBC Neutrophils # (Manual) Lymphocytes # (Manual) Monocytes # (Manual) Eosinophils # (Manual) Basophils # (Manual) Differential Comment Manual Slide Review WBC Morphology (NORMAL) Platelet Estimate (NORMAL) Platelet Morphology (NORMAL) RBC Morph Micro Appear (NORMAL) Bld Gas Analysis Time Sample Site ABG pH (7.35-7.45) ABG pCO2 (34-45) mmHg ABG pO2 (83-108) mmHg ABG HCO3 (22.0-26.0) mmol/L ABG Total CO2 (21.0-29.0) mmol/L ABG O2 Saturation (95-98) % ABG Base Excess (-2.0-3.0) mmol/L Isaac Test VBG pH (7.31-7.41) VBG pCO2 (41-51) mmHg VBG pO2 (25-47) mmHg VBG HCO3 (23-28) mmol/L VBG Total CO2 (24-29) mmol/L VBG O2 Saturation (60-80) % VBG Base Excess (-2 - +2) mmol/L Ionized Calcium (1.09-1.30) mmol/L O2 Delivery Device FiO2 Sodium (135-145) mmol/L Potassium (3.5-4.5) mmol/L Chloride (101-111) mmol/L Carbon Dioxide (21-32) mmol/L Anion Gap (6-13) BUN (6-20) mg/dL Creatinine (0.6-1.3) mg/dL Estimated GFR (MDRD) (>89) Glucose (74-104) mg/dL POC Whole Bld Glucose 91 115 124 (70-100) mg/dL Lactic Acid (0.5-2.2) mmol/L Calcium (8.5-10.3) mg/dL Phosphorus (2.5-5.0) mg/dL Magnesium (1.7-2.3) mg/dL Total Bilirubin (0.2-1.0) mg/dL AST (10-42) IU/L ALT (10-60) IU/L Alkaline Phosphatase (42-121) IU/L Total Protein (6.4-8.9) g/dL Albumin (3.2-5.5) g/dL Globulin (2.1-4.2) g/dL Albumin/Globulin Ratio (1.0-2.2) Lipase Urine Color Urine Clarity (CLEAR) Urine pH (5.0-7.5) PH Ur Specific [place] (1.002-1.030) Urine Protein (NEGATIVE) mg/dL Urine Glucose (UA) (NEGATIVE) mg/dL Urine Ketones (NEGATIVE) mg/dL Urine Occult Blood (NEGATIVE) Urine Nitrite (NEGATIVE) Urine Bilirubin (NEGATIVE) Urine Urobilinogen (NORMAL) E.U./dL Ur Leukocyte Esterase (NEGATIVE) Ur Microscopic Review Urine Culture Comments Nasal Screen MRSA (PCR) (NEGATIVE) Urine Opiates Screen (NEGATIVE) Ur Buprenorphine Scrn (NEGATIVE) Ur Oxycodone Screen (NEGATIVE) Urine Methadone Screen (NEGATIVE) Urine Fentanyl Screen (NEGATIVE) Ur Barbiturates Screen (NEGATIVE) Ur Tricyclics Screen (NEGATIVE) Ur Phencyclidine Scrn (NEGATIVE) Ur Amphetamine Screen (NEGATIVE) U Methamphetamines Scrn (NEGATIVE) U Benzodiazepines Scrn (NEGATIVE) Urine Cocaine Screen (NEGATIVE) U Cannabinoids Screen (NEGATIVE) Ur Drug Screen Comment Ethyl Alcohol mg/dL Serum Ketones (NEGATIVE) 05/30/25 05/30/25 05/30/25 Range/Units 04:28 04:00 03:01 WBC 16.7 H (4.8-10.8) x10^3/uL RBC 3.34 L (4.20-5.40) 10^6/uL Hgb 10.1 L (12.0-16.0) g/dL Hct 32.2 L (37.0-47.0) % MCV 96.4 (81.0-99.0) fL MCH 30.2 (27.0-31.0) pg MCHC 31.4 L (32.0-36.0) g/dL RDW 12.9 (12.0-15.0) % Plt Count 250 (130-450) 10^3/uL MPV 10.1 (7.9-10.8) fL Neut # (Auto) Not Reportable (1.5-6.6) 10^3/uL Lymph # (Auto) Not Reportable (1.5-3.5) 10^3/uL [place] # (Auto) Not Reportable (0.0-1.0) 10^3/uL Eos # (Auto) Not Reportable (0.0-0.7) 10^3/uL Baso # (Auto) Not Reportable (0.0-0.1) 10^3/uL Absolute Nucleated RBC Not Reportable x10^3/uL Total Counted 100 Band Neuts % (Manual) 3 Abnorm Lymph % (Manual) 0 Metamyelocytes % ( - 0) % Nucleated RBC % Not Reportable /100WBC Neutrophils # (Manual) 14.4 H Lymphocytes # (Manual) 1.3 L Monocytes # (Manual) 1.0 Eosinophils # (Manual) 0.0 Basophils # (Manual) 0.0 Differential Comment MANUAL DIFFERENTIAL Manual Slide Review WBC Morphology NORMAL APPEARANCE (NORMAL) Platelet Estimate NORMAL (130-450,000) (NORMAL) Platelet Morphology NORMAL APPEARANCE (NORMAL) RBC Morph Micro Appear NORMAL APPEARANCE (NORMAL) Bld Gas Analysis Time Sample Site ABG pH (7.35-7.45) ABG pCO2 (34-45) mmHg ABG pO2 (83-108) mmHg ABG HCO3 (22.0-26.0) mmol/L ABG Total CO2 (21.0-29.0) mmol/L ABG O2 Saturation (95-98) % ABG Base Excess (-2.0-3.0) mmol/L Isaac Test VBG pH 7.294 L (7.31-7.41) VBG pCO2 (41-51) mmHg VBG pO2 (25-47) mmHg VBG HCO3 (23-28) mmol/L VBG Total CO2 (24-29) mmol/L VBG O2 Saturation (60-80) % VBG Base Excess (-2 - +2) mmol/L Ionized Calcium 1.09 (1.09-1.30) mmol/L O2 Delivery Device FiO2 Sodium 144 (135-145) mmol/L Potassium 3.7 (3.5-4.5) mmol/L Chloride 115 H (101-111) mmol/L Carbon Dioxide 20 L (21-32) mmol/L Anion Gap 9.0 (6-13) BUN 31 H (6-20) mg/dL Creatinine 1.4 H (0.6-1.3) mg/dL Estimated GFR (MDRD) 37 L (>89) Glucose 158 H (74-104) mg/dL POC Whole Bld Glucose 135 148 (70-100) mg/dL Lactic Acid 2.6 H (0.5-2.2) mmol/L Calcium 7.3 L (8.5-10.3) mg/dL Phosphorus 2.3 L (2.5-5.0) mg/dL Magnesium 1.9 (1.7-2.3) mg/dL Total Bilirubin (0.2-1.0) mg/dL AST (10-42) IU/L ALT (10-60) IU/L Alkaline Phosphatase (42-121) IU/L Total Protein (6.4-8.9) g/dL Albumin (3.2-5.5) g/dL Globulin (2.1-4.2) g/dL Albumin/Globulin Ratio (1.0-2.2) Lipase Urine Color Urine Clarity (CLEAR) Urine pH (5.0-7.5) PH Ur Specific [place] (1.002-1.030) Urine Protein (NEGATIVE) mg/dL Urine Glucose (UA) (NEGATIVE) mg/dL Urine Ketones (NEGATIVE) mg/dL Urine Occult Blood (NEGATIVE) Urine Nitrite (NEGATIVE) Urine Bilirubin (NEGATIVE) Urine Urobilinogen (NORMAL) E.U./dL Ur Leukocyte Esterase (NEGATIVE) Ur Microscopic Review Urine Culture Comments Nasal Screen MRSA (PCR) (NEGATIVE) Urine Opiates Screen (NEGATIVE) Ur Buprenorphine Scrn (NEGATIVE) Ur Oxycodone Screen (NEGATIVE) Urine Methadone Screen (NEGATIVE) Urine Fentanyl Screen (NEGATIVE) Ur Barbiturates Screen (NEGATIVE) Ur Tricyclics Screen (NEGATIVE) Ur Phencyclidine Scrn (NEGATIVE) Ur Amphetamine Screen (NEGATIVE) U Methamphetamines Scrn (NEGATIVE) U Benzodiazepines Scrn (NEGATIVE) Urine Cocaine Screen (NEGATIVE) U Cannabinoids Screen (NEGATIVE) Ur Drug Screen Comment Ethyl Alcohol mg/dL Serum Ketones (NEGATIVE) 05/30/25 05/30/25 05/30/25 Range/Units 01:58 01:00 00:01 WBC (4.8-10.8) x10^3/uL RBC (4.20-5.40) 10^6/uL Hgb (12.0-16.0) g/dL Hct (37.0-47.0) % MCV (81.0-99.0) fL MCH (27.0-31.0) pg MCHC (32.0-36.0) g/dL RDW (12.0-15.0) % Plt Count (130-450) 10^3/uL MPV (7.9-10.8) fL Neut # (Auto) (1.5-6.6) 10^3/uL Lymph # (Auto) (1.5-3.5) 10^3/uL [place] # (Auto) (0.0-1.0) 10^3/uL Eos # (Auto) (0.0-0.7) 10^3/uL Baso # (Auto) (0.0-0.1) 10^3/uL Absolute Nucleated RBC x10^3/uL Total Counted Band Neuts % (Manual) Abnorm Lymph % (Manual) Metamyelocytes % ( - 0) % Nucleated RBC % /100WBC Neutrophils # (Manual) Lymphocytes # (Manual) Monocytes # (Manual) Eosinophils # (Manual) Basophils # (Manual) Differential Comment Manual Slide Review WBC Morphology (NORMAL) Platelet Estimate (NORMAL) Platelet Morphology (NORMAL) RBC Morph Micro Appear (NORMAL) Bld Gas Analysis Time Sample Site ABG pH (7.35-7.45) ABG pCO2 (34-45) mmHg ABG pO2 (83-108) mmHg ABG HCO3 (22.0-26.0) mmol/L ABG Total CO2 (21.0-29.0) mmol/L ABG O2 Saturation (95-98) % ABG Base Excess (-2.0-3.0) mmol/L Isaac Test VBG pH (7.31-7.41) VBG pCO2 (41-51) mmHg VBG pO2 (25-47) mmHg VBG HCO3 (23-28) mmol/L VBG Total CO2 (24-29) mmol/L VBG O2 Saturation (60-80) % VBG Base Excess (-2 - +2) mmol/L Ionized Calcium (1.09-1.30) mmol/L O2 Delivery Device FiO2 Sodium 143 (135-145) mmol/L Potassium 3.9 (3.5-4.5) mmol/L Chloride 115 H (101-111) mmol/L Carbon Dioxide 21 (21-32) mmol/L Anion Gap 7.0 (6-13) BUN 35 H (6-20) mg/dL Creatinine 1.6 H (0.6-1.3) mg/dL Estimated GFR (MDRD) 32 L (>89) Glucose 330 H (74-104) mg/dL POC Whole Bld Glucose 206 280 302 (70-100) mg/dL Lactic Acid 1.8 (0.5-2.2) mmol/L Calcium 7.4 L (8.5-10.3) mg/dL Phosphorus (2.5-5.0) mg/dL Magnesium (1.7-2.3) mg/dL Total Bilirubin (0.2-1.0) mg/dL AST (10-42) IU/L ALT (10-60) IU/L Alkaline Phosphatase (42-121) IU/L Total Protein (6.4-8.9) g/dL Albumin (3.2-5.5) g/dL Globulin (2.1-4.2) g/dL Albumin/Globulin Ratio (1.0-2.2) Lipase Urine Color Urine Clarity (CLEAR) Urine pH (5.0-7.5) PH Ur Specific [place] (1.002-1.030) Urine Protein (NEGATIVE) mg/dL Urine Glucose (UA) (NEGATIVE) mg/dL Urine Ketones (NEGATIVE) mg/dL Urine Occult Blood (NEGATIVE) Urine Nitrite (NEGATIVE) Urine Bilirubin (NEGATIVE) Urine Urobilinogen (NORMAL) E.U./dL Ur Leukocyte Esterase (NEGATIVE) Ur Microscopic Review Urine Culture Comments Nasal Screen MRSA (PCR) (NEGATIVE) Urine Opiates Screen (NEGATIVE) Ur Buprenorphine Scrn (NEGATIVE) Ur Oxycodone Screen (NEGATIVE) Urine Methadone Screen (NEGATIVE) Urine Fentanyl Screen (NEGATIVE) Ur Barbiturates Screen (NEGATIVE) Ur Tricyclics Screen (NEGATIVE) Ur Phencyclidine Scrn (NEGATIVE) Ur Amphetamine Screen (NEGATIVE) U Methamphetamines Scrn (NEGATIVE) U Benzodiazepines Scrn (NEGATIVE) Urine Cocaine Screen (NEGATIVE) U Cannabinoids Screen (NEGATIVE) Ur Drug Screen Comment Ethyl Alcohol mg/dL Serum Ketones (NEGATIVE) 05/29/25 05/29/25 05/29/25 Range/Units 22:57 22:11 21:20 WBC (4.8-10.8) x10^3/uL RBC (4.20-5.40) 10^6/uL Hgb (12.0-16.0) g/dL Hct (37.0-47.0) % MCV (81.0-99.0) fL MCH (27.0-31.0) pg MCHC (32.0-36.0) g/dL RDW (12.0-15.0) % Plt Count (130-450) 10^3/uL MPV (7.9-10.8) fL Neut # (Auto) (1.5-6.6) 10^3/uL Lymph # (Auto) (1.5-3.5) 10^3/uL [place] # (Auto) (0.0-1.0) 10^3/uL Eos # (Auto) (0.0-0.7) 10^3/uL Baso # (Auto) (0.0-0.1) 10^3/uL Absolute Nucleated RBC x10^3/uL Total Counted Band Neuts % (Manual) Abnorm Lymph % (Manual) Metamyelocytes % ( - 0) % Nucleated RBC % /100WBC Neutrophils # (Manual) Lymphocytes # (Manual) Monocytes # (Manual) Eosinophils # (Manual) Basophils # (Manual) Differential Comment Manual Slide Review WBC Morphology (NORMAL) Platelet Estimate (NORMAL) Platelet Morphology (NORMAL) RBC Morph Micro Appear (NORMAL) Bld Gas Analysis Time 212 Sample Site RIGHT RADIAL ABG pH 7.22 L (7.35-7.45) ABG pCO2 27 L (34-45) mmHg ABG pO2 90 (83-108) mmHg ABG HCO3 10.9 L (22.0-26.0) mmol/L ABG Total CO2 11.7 L* (21.0-29.0) mmol/L ABG O2 Saturation 98 (95-98) % ABG Base Excess -17.0 L (-2.0-3.0) mmol/L Isaac Test POSITIVE VBG pH (7.31-7.41) VBG pCO2 (41-51) mmHg VBG pO2 (25-47) mmHg VBG HCO3 (23-28) mmol/L VBG Total CO2 (24-29) mmol/L VBG O2 Saturation (60-80) % VBG Base Excess (-2 - +2) mmol/L Ionized Calcium (1.09-1.30) mmol/L O2 Delivery Device NO DEVICE/ROOM AIR FiO2 21.00 Sodium (135-145) mmol/L Potassium (3.5-4.5) mmol/L Chloride (101-111) mmol/L Carbon Dioxide (21-32) mmol/L Anion Gap (6-13) BUN (6-20) mg/dL Creatinine (0.6-1.3) mg/dL Estimated GFR (MDRD) (>89) Glucose 428 H (74-104) mg/dL POC Whole Bld Glucose 338 (70-100) mg/dL Lactic Acid (0.5-2.2) mmol/L Calcium (8.5-10.3) mg/dL Phosphorus (2.5-5.0) mg/dL Magnesium (1.7-2.3) mg/dL Total Bilirubin (0.2-1.0) mg/dL AST (10-42) IU/L ALT (10-60) IU/L Alkaline Phosphatase (42-121) IU/L Total Protein (6.4-8.9) g/dL Albumin (3.2-5.5) g/dL Globulin (2.1-4.2) g/dL Albumin/Globulin Ratio (1.0-2.2) Lipase Urine Color Urine Clarity (CLEAR) Urine pH (5.0-7.5) PH Ur Specific [place] (1.002-1.030) Urine Protein (NEGATIVE) mg/dL Urine Glucose (UA) (NEGATIVE) mg/dL Urine Ketones (NEGATIVE) mg/dL Urine Occult Blood (NEGATIVE) Urine Nitrite (NEGATIVE) Urine Bilirubin (NEGATIVE) Urine Urobilinogen (NORMAL) E.U./dL Ur Leukocyte Esterase (NEGATIVE) Ur Microscopic Review Urine Culture Comments Nasal Screen MRSA (PCR) (NEGATIVE) Urine Opiates Screen (NEGATIVE) Ur Buprenorphine Scrn (NEGATIVE) Ur Oxycodone Screen (NEGATIVE) Urine Methadone Screen (NEGATIVE) Urine Fentanyl Screen (NEGATIVE) Ur Barbiturates Screen (NEGATIVE) Ur Tricyclics Screen (NEGATIVE) Ur Phencyclidine Scrn (NEGATIVE) Ur Amphetamine Screen (NEGATIVE) U Methamphetamines Scrn (NEGATIVE) U Benzodiazepines Scrn (NEGATIVE) Urine Cocaine Screen (NEGATIVE) U Cannabinoids Screen (NEGATIVE) Ur Drug Screen Comment Ethyl Alcohol mg/dL Serum Ketones (NEGATIVE) 05/29/25 05/29/25 05/29/25 Range/Units 20:53 20:00 19:27 WBC (4.8-10.8) x10^3/uL RBC (4.20-5.40) 10^6/uL Hgb (12.0-16.0) g/dL Hct (37.0-47.0) % MCV (81.0-99.0) fL MCH (27.0-31.0) pg MCHC (32.0-36.0) g/dL RDW (12.0-15.0) % Plt Count (130-450) 10^3/uL MPV (7.9-10.8) fL Neut # (Auto) (1.5-6.6) 10^3/uL Lymph # (Auto) (1.5-3.5) 10^3/uL [place] # (Auto) (0.0-1.0) 10^3/uL Eos # (Auto) (0.0-0.7) 10^3/uL Baso # (Auto) (0.0-0.1) 10^3/uL Absolute Nucleated RBC x10^3/uL Total Counted Band Neuts % (Manual) Abnorm Lymph % (Manual) Metamyelocytes % ( - 0) % Nucleated RBC % /100WBC Neutrophils # (Manual) Lymphocytes # (Manual) Monocytes # (Manual) Eosinophils # (Manual) Basophils # (Manual) Differential Comment Manual Slide Review WBC Morphology (NORMAL) Platelet Estimate (NORMAL) Platelet Morphology (NORMAL) RBC Morph Micro Appear (NORMAL) Bld Gas Analysis Time Sample Site ABG pH (7.35-7.45) ABG pCO2 (34-45) mmHg ABG pO2 (83-108) mmHg ABG HCO3 (22.0-26.0) mmol/L ABG Total CO2 (21.0-29.0) mmol/L ABG O2 Saturation (95-98) % ABG Base Excess (-2.0-3.0) mmol/L Isaac Test VBG pH (7.31-7.41) VBG pCO2 (41-51) mmHg VBG pO2 (25-47) mmHg VBG HCO3 (23-28) mmol/L VBG Total CO2 (24-29) mmol/L VBG O2 Saturation (60-80) % VBG Base Excess (-2 - +2) mmol/L Ionized Calcium (1.09-1.30) mmol/L O2 Delivery Device FiO2 Sodium 136 (135-145) mmol/L Potassium 5.1 H (3.5-4.5) mmol/L Chloride 100 L (101-111) mmol/L Carbon Dioxide 10 L* (21-32) mmol/L Anion Gap 26.0 H (6-13) BUN 40 H (6-20) mg/dL Creatinine 1.8 H (0.6-1.3) mg/dL Estimated GFR (MDRD) 28 L (>89) Glucose 522 H* 756 H* (74-104) mg/dL POC Whole Bld Glucose (70-100) mg/dL Lactic Acid (0.5-2.2) mmol/L Calcium 8.4 L (8.5-10.3) mg/dL Phosphorus (2.5-5.0) mg/dL Magnesium (1.7-2.3) mg/dL Total Bilirubin (0.2-1.0) mg/dL AST (10-42) IU/L ALT (10-60) IU/L Alkaline Phosphatase (42-121) IU/L Total Protein (6.4-8.9) g/dL Albumin (3.2-5.5) g/dL Globulin (2.1-4.2) g/dL Albumin/Globulin Ratio (1.0-2.2) Lipase Urine Color Urine Clarity (CLEAR) Urine pH (5.0-7.5) PH Ur Specific [place] (1.002-1.030) Urine Protein (NEGATIVE) mg/dL Urine Glucose (UA) (NEGATIVE) mg/dL Urine Ketones (NEGATIVE) mg/dL Urine Occult Blood (NEGATIVE) Urine Nitrite (NEGATIVE) Urine Bilirubin (NEGATIVE) Urine Urobilinogen (NORMAL) E.U./dL Ur Leukocyte Esterase (NEGATIVE) Ur Microscopic Review Urine Culture Comments Nasal Screen MRSA (PCR) NEGATIVE (NEGATIVE) Urine Opiates Screen (NEGATIVE) Ur Buprenorphine Scrn (NEGATIVE) Ur Oxycodone Screen (NEGATIVE) Urine Methadone Screen (NEGATIVE) Urine Fentanyl Screen (NEGATIVE) Ur Barbiturates Screen (NEGATIVE) Ur Tricyclics Screen (NEGATIVE) Ur Phencyclidine Scrn (NEGATIVE) Ur Amphetamine Screen (NEGATIVE) U Methamphetamines Scrn (NEGATIVE) U Benzodiazepines Scrn (NEGATIVE) Urine Cocaine Screen (NEGATIVE) U Cannabinoids Screen (NEGATIVE) Ur Drug Screen Comment Ethyl Alcohol mg/dL Serum Ketones (NEGATIVE) 05/29/25 05/29/25 05/29/25 Range/Units 19:19 19:02 18:55 WBC 18.2 H (4.8-10.8) x10^3/uL RBC 3.69 L (4.20-5.40) 10^6/uL Hgb 11.1 L (12.0-16.0) g/dL Hct 36.0 L (37.0-47.0) % MCV 97.6 (81.0-99.0) fL MCH 30.1 (27.0-31.0) pg MCHC 30.8 L (32.0-36.0) g/dL RDW 12.9 (12.0-15.0) % Plt Count 343 (130-450) 10^3/uL MPV 10.5 (7.9-10.8) fL Neut # (Auto) Not Reportable (1.5-6.6) 10^3/uL Lymph # (Auto) Not Reportable (1.5-3.5) 10^3/uL [place] # (Auto) Not Reportable (0.0-1.0) 10^3/uL Eos # (Auto) Not Reportable (0.0-0.7) 10^3/uL Baso # (Auto) Not Reportable (0.0-0.1) 10^3/uL Absolute Nucleated RBC Not Reportable x10^3/uL Total Counted 100 Band Neuts % (Manual) 2 Abnorm Lymph % (Manual) 0 Metamyelocytes % 4 H ( - 0) % Nucleated RBC % Not Reportable /100WBC Neutrophils # (Manual) 15.3 H Lymphocytes # (Manual) 0.7 L Monocytes # (Manual) 1.5 H Eosinophils # (Manual) 0.0 Basophils # (Manual) 0.0 Differential Comment MANUAL DIFFERENTIAL Manual Slide Review Indicated WBC Morphology 1+ VACUOLATION (NORMAL) Platelet Estimate NORMAL (130-450,000) (NORMAL) Platelet Morphology NORMAL APPEARANCE (NORMAL) RBC Morph Micro Appear NORMAL APPEARANCE (NORMAL) Bld Gas Analysis Time Sample Site ABG pH (7.35-7.45) ABG pCO2 (34-45) mmHg ABG pO2 (83-108) mmHg ABG HCO3 (22.0-26.0) mmol/L ABG Total CO2 (21.0-29.0) mmol/L ABG O2 Saturation (95-98) % ABG Base Excess (-2.0-3.0) mmol/L Isaac Test VBG pH (7.31-7.41) VBG pCO2 (41-51) mmHg VBG pO2 (25-47) mmHg VBG HCO3 (23-28) mmol/L VBG Total CO2 (24-29) mmol/L VBG O2 Saturation (60-80) % VBG Base Excess (-2 - +2) mmol/L Ionized Calcium (1.09-1.30) mmol/L O2 Delivery Device FiO2 Sodium Cancelled (135-145) mmol/L Potassium Cancelled (3.5-4.5) mmol/L Chloride Cancelled (101-111) mmol/L Carbon Dioxide Cancelled (21-32) mmol/L Anion Gap Cancelled (6-13) BUN Cancelled (6-20) mg/dL Creatinine Cancelled (0.6-1.3) mg/dL Estimated GFR (MDRD) Cancelled (>89) Glucose Cancelled (74-104) mg/dL POC Whole Bld Glucose > 600 (70-100) mg/dL Lactic Acid 6.7 H* (0.5-2.2) mmol/L Calcium Cancelled (8.5-10.3) mg/dL Phosphorus (2.5-5.0) mg/dL Magnesium (1.7-2.3) mg/dL Total Bilirubin Cancelled (0.2-1.0) mg/dL AST Cancelled (10-42) IU/L ALT Cancelled (10-60) IU/L Alkaline Phosphatase Cancelled (42-121) IU/L Total Protein Cancelled (6.4-8.9) g/dL Albumin Cancelled (3.2-5.5) g/dL Globulin Cancelled (2.1-4.2) g/dL Albumin/Globulin Ratio Cancelled (1.0-2.2) Lipase Cancelled Urine Color Urine Clarity (CLEAR) Urine pH (5.0-7.5) PH Ur Specific [place] (1.002-1.030) Urine Protein (NEGATIVE) mg/dL Urine Glucose (UA) (NEGATIVE) mg/dL Urine Ketones (NEGATIVE) mg/dL Urine Occult Blood (NEGATIVE) Urine Nitrite (NEGATIVE) Urine Bilirubin (NEGATIVE) Urine Urobilinogen (NORMAL) E.U./dL Ur Leukocyte Esterase (NEGATIVE) Ur Microscopic Review Urine Culture Comments Nasal Screen MRSA (PCR) (NEGATIVE) Urine Opiates Screen (NEGATIVE) Ur Buprenorphine Scrn (NEGATIVE) Ur Oxycodone Screen (NEGATIVE) Urine Methadone Screen (NEGATIVE) Urine Fentanyl Screen (NEGATIVE) Ur Barbiturates Screen (NEGATIVE) Ur Tricyclics Screen (NEGATIVE) Ur Phencyclidine Scrn (NEGATIVE) Ur Amphetamine Screen (NEGATIVE) U Methamphetamines Scrn (NEGATIVE) U Benzodiazepines Scrn (NEGATIVE) Urine Cocaine Screen (NEGATIVE) U Cannabinoids Screen (NEGATIVE) Ur Drug Screen Comment Ethyl Alcohol mg/dL Serum Ketones Cancelled (NEGATIVE) 05/29/25 05/29/25 05/29/25 Range/Units 18:28 18:22 17:40 WBC 19.0 H (4.8-10.8) x10^3/uL RBC 4.14 L (4.20-5.40) 10^6/uL Hgb 12.6 (12.0-16.0) g/dL Hct 40.1 (37.0-47.0) % MCV 96.9 (81.0-99.0) fL MCH 30.4 (27.0-31.0) pg MCHC 31.4 L (32.0-36.0) g/dL RDW 12.7 (12.0-15.0) % Plt Count 408 (130-450) 10^3/uL MPV 10.3 (7.9-10.8) fL Neut # (Auto) 16.3 H (1.5-6.6) 10^3/uL Lymph # (Auto) 0.7 L (1.5-3.5) 10^3/uL [place] # (Auto) 1.7 H (0.0-1.0) 10^3/uL Eos # (Auto) 0.0 (0.0-0.7) 10^3/uL Baso # (Auto) 0.1 (0.0-0.1) 10^3/uL Absolute Nucleated RBC 0.00 x10^3/uL Total Counted Band Neuts % (Manual) Not Reportable Abnorm Lymph % (Manual) Not Reportable Metamyelocytes % ( - 0) % Nucleated RBC % 0.0 /100WBC Neutrophils # (Manual) Not Reportable Lymphocytes # (Manual) Not Reportable Monocytes # (Manual) Not Reportable Eosinophils # (Manual) Not Reportable Basophils # (Manual) Not Reportable Differential Comment MANUAL=AUTO DIFF Manual Slide Review Indicated WBC Morphology NORMAL APPEARANCE (NORMAL) Platelet Estimate NORMAL (130-450,000) (NORMAL) Platelet Morphology NORMAL APPEARANCE (NORMAL) RBC Morph Micro Appear NORMAL APPEARANCE (NORMAL) Bld Gas Analysis Time Sample Site ABG pH (7.35-7.45) ABG pCO2 (34-45) mmHg ABG pO2 (83-108) mmHg ABG HCO3 (22.0-26.0) mmol/L ABG Total CO2 (21.0-29.0) mmol/L ABG O2 Saturation (95-98) % ABG Base Excess (-2.0-3.0) mmol/L Isaac Test VBG pH 7.068 L* (7.31-7.41) VBG pCO2 34.9 L (41-51) mmHg VBG pO2 80.1 H (25-47) mmHg VBG HCO3 10.2 L (23-28) mmol/L VBG Total CO2 11.2 L (24-29) mmol/L VBG O2 Saturation 91.0 H (60-80) % VBG Base Excess -20.2 L (-2 - +2) mmol/L Ionized Calcium (1.09-1.30) mmol/L O2 Delivery Device FiO2 Sodium 133 L (135-145) mmol/L Potassium 5.9 H (3.5-4.5) mmol/L Chloride 90 L (101-111) mmol/L Carbon Dioxide 16 L (21-32) mmol/L Anion Gap 27.0 H (6-13) BUN 41 H (6-20) mg/dL Creatinine 1.9 H (0.6-1.3) mg/dL Estimated GFR (MDRD) 26 L (>89) Glucose 796 H* (74-104) mg/dL POC Whole Bld Glucose (70-100) mg/dL Lactic Acid (0.5-2.2) mmol/L Calcium 9.5 (8.5-10.3) mg/dL Phosphorus (2.5-5.0) mg/dL Magnesium (1.7-2.3) mg/dL Total Bilirubin 0.8 (0.2-1.0) mg/dL AST 18 (10-42) IU/L ALT 16 (10-60) IU/L Alkaline Phosphatase 91 (42-121) IU/L Total Protein 7.3 (6.4-8.9) g/dL Albumin 4.5 (3.2-5.5) g/dL Globulin 2.8 (2.1-4.2) g/dL Albumin/Globulin Ratio 1.6 (1.0-2.2) Lipase Urine Color YELLOW Urine Clarity CLEAR (CLEAR) Urine pH 6.0 (5.0-7.5) PH Ur Specific [place] 1.015 (1.002-1.030) Urine Protein NEGATIVE (NEGATIVE) mg/dL Urine Glucose (UA) >=1000 H (NEGATIVE) mg/dL Urine Ketones 40 H (NEGATIVE) mg/dL Urine Occult Blood NEGATIVE (NEGATIVE) Urine Nitrite NEGATIVE (NEGATIVE) Urine Bilirubin NEGATIVE (NEGATIVE) Urine Urobilinogen 0.2 (NORMAL) (NORMAL) E.U./dL Ur Leukocyte Esterase NEGATIVE (NEGATIVE) Ur Microscopic Review NOT INDICATED Urine Culture Comments NOT INDICATED Nasal Screen MRSA (PCR) (NEGATIVE) Urine Opiates Screen POSITIVE H (NEGATIVE) Ur Buprenorphine Scrn NEGATIVE (NEGATIVE) Ur Oxycodone Screen POSITIVE H (NEGATIVE) Urine Methadone Screen NEGATIVE (NEGATIVE) Urine Fentanyl Screen Negative (NEGATIVE) Ur Barbiturates Screen NEGATIVE (NEGATIVE) Ur Tricyclics Screen NEGATIVE (NEGATIVE) Ur Phencyclidine Scrn NEGATIVE (NEGATIVE) Ur Amphetamine Screen NEGATIVE (NEGATIVE) U Methamphetamines Scrn NEGATIVE (NEGATIVE) U Benzodiazepines Scrn NEGATIVE (NEGATIVE) Urine Cocaine Screen NEGATIVE (NEGATIVE) U Cannabinoids Screen NEGATIVE (NEGATIVE) Ur Drug Screen Comment CUTOFF CONC BELOW: Ethyl Alcohol < 10.0 mg/dL Serum Ketones SMALL H (NEGATIVE) 05/29/25 Range/Units 17:31 WBC (4.8-10.8) x10^3/uL RBC (4.20-5.40) 10^6/uL Hgb (12.0-16.0) g/dL Hct (37.0-47.0) % MCV (81.0-99.0) fL MCH (27.0-31.0) pg MCHC (32.0-36.0) g/dL RDW (12.0-15.0) % Plt Count (130-450) 10^3/uL MPV (7.9-10.8) fL Neut # (Auto) (1.5-6.6) 10^3/uL Lymph # (Auto) (1.5-3.5) 10^3/uL [place] # (Auto) (0.0-1.0) 10^3/uL Eos # (Auto) (0.0-0.7) 10^3/uL Baso # (Auto) (0.0-0.1) 10^3/uL Absolute Nucleated RBC x10^3/uL Total Counted Band Neuts % (Manual) Abnorm Lymph % (Manual) Metamyelocytes % ( - 0) % Nucleated RBC % /100WBC Neutrophils # (Manual) Lymphocytes # (Manual) Monocytes # (Manual) Eosinophils # (Manual) Basophils # (Manual) Differential Comment Manual Slide Review WBC Morphology (NORMAL) Platelet Estimate (NORMAL) Platelet Morphology (NORMAL) RBC Morph Micro Appear (NORMAL) Bld Gas Analysis Time Sample Site ABG pH (7.35-7.45) ABG pCO2 (34-45) mmHg ABG pO2 (83-108) mmHg ABG HCO3 (22.0-26.0) mmol/L ABG Total CO2 (21.0-29.0) mmol/L ABG O2 Saturation (95-98) % ABG Base Excess (-2.0-3.0) mmol/L Isaac Test VBG pH (7.31-7.41) VBG pCO2 (41-51) mmHg VBG pO2 (25-47) mmHg VBG HCO3 (23-28) mmol/L VBG Total CO2 (24-29) mmol/L VBG O2 Saturation (60-80) % VBG Base Excess (-2 - +2) mmol/L Ionized Calcium (1.09-1.30) mmol/L O2 Delivery Device FiO2 Sodium (135-145) mmol/L Potassium (3.5-4.5) mmol/L Chloride (101-111) mmol/L Carbon Dioxide (21-32) mmol/L Anion Gap (6-13) BUN (6-20) mg/dL Creatinine (0.6-1.3) mg/dL Estimated GFR (MDRD) (>89) Glucose (74-104) mg/dL POC Whole Bld Glucose > 600 (70-100) mg/dL Lactic Acid (0.5-2.2) mmol/L Calcium (8.5-10.3) mg/dL Phosphorus (2.5-5.0) mg/dL Magnesium (1.7-2.3) mg/dL Total Bilirubin (0.2-1.0) mg/dL AST (10-42) IU/L ALT (10-60) IU/L Alkaline Phosphatase (42-121) IU/L Total Protein (6.4-8.9) g/dL Albumin (3.2-5.5) g/dL Globulin (2.1-4.2) g/dL Albumin/Globulin Ratio (1.0-2.2) Lipase Urine Color Urine Clarity (CLEAR) Urine pH (5.0-7.5) PH Ur Specific [place] (1.002-1.030) Urine Protein (NEGATIVE) mg/dL Urine Glucose (UA) (NEGATIVE) mg/dL Urine Ketones (NEGATIVE) mg/dL Urine Occult Blood (NEGATIVE) Urine Nitrite (NEGATIVE) Urine Bilirubin (NEGATIVE) Urine Urobilinogen (NORMAL) E.U./dL Ur Leukocyte Esterase (NEGATIVE) Ur Microscopic Review Urine Culture Comments Nasal Screen MRSA (PCR) (NEGATIVE) Urine Opiates Screen (NEGATIVE) Ur Buprenorphine Scrn (NEGATIVE) Ur Oxycodone Screen (NEGATIVE) Urine Methadone Screen (NEGATIVE) Urine Fentanyl Screen (NEGATIVE) Ur Barbiturates Screen (NEGATIVE) Ur Tricyclics Screen (NEGATIVE) Ur Phencyclidine Scrn (NEGATIVE) Ur Amphetamine Screen (NEGATIVE) U Methamphetamines Scrn (NEGATIVE) U Benzodiazepines Scrn (NEGATIVE) Urine Cocaine Screen (NEGATIVE) U Cannabinoids Screen (NEGATIVE) Ur Drug Screen Comment Ethyl Alcohol mg/dL Serum Ketones (NEGATIVE) Assessment/Plan Problem List (1) Hyperosmolar hyperglycemic state (HHS): Impression: Patient presented with glucose of 796, high anion gap metabolic acidosis, urine with ketones. Now resolved. Off insulin drip, completed DKA protocol/pathway. On sliding scale insulin. Likely mixed picture of HHS and DKA. May have been triggered by recent fall and fracture. Patient admits she does not recall when she last took her insulin. Typically takes 12 units of long-acting at night, and then a sliding scale depending on her carbohydrate levels. She was diagnosed with type 1 diabetes in her 30s. Does not see endocrinology, does not use an insulin pump or glucose monitor. Continue 10 units at night, and then low-dose sliding scale. Uptitrate as able. (2) Encephalopathy: Impression: Attributed to metabolic changes as above. Now resolved. Patient at baseline. Qualifiers: Encephalopathy type: unspecified encephalopathy Qualified Code(s): G 93.40 - Encephalopathy, unspecified (3) Diabetes type 1: Impression: Typically takes 12 units of long-acting at night, and then a sliding scale depending on her carbohydrate levels. She was diagnosed with type 1 diabetes in her 30s. Does not see endocrinology, does not use an insulin pump or glucose monitor. Has PCP appointment in September 2025. Qualifiers: Diabetes mellitus complication status: without complication Qualified Code(s): E10.9 - Type 1 diabetes mellitus without complications (4) Leukocytosis: Impression: Patient presented with leukocytosis. Downtrending but still elevated. Afebrile. No clinical signs or symptoms of infectionno cough, fevers, chills, abdominal pain, urinary symptoms. Rust catheter was placed for close monitoring of urine output yesterday, to be removed today. Continue to monitor off antibiotics. (5) Acute kidney injury: Impression: Resolving with IV hydration. Continue to trend creatinine. (6) Fracture of tibia and fibula: Impression: Patient had mechanical fall. CT shows comminuted, mildly displaced oblique fracture of the distal tibial diaphysis. Nondisplaced oblique fracture of the distal fibula extending across the level of the syndesmosis and into the ankle mortise. Comminuted and mildly displaced fracture of the fibular head. Orthopedic surgery consulted - awaiting final recommendations on operative management inpatient versus nonoperative management and follow-up outpatient. Physical therapy consulted. Qualifiers: Encounter type: initial encounter Fracture type: closed Laterality: l eft Qualified Code(s): S82.202A - Unspecified fracture of shaft of left tibia, initial encounter for closed fracture; S82.402A - Unspecified fracture of shaft of left fibula, initial encounter for closed fracture (7) Alcohol use: Impression: Per previous hospitalist who spoke with the family, they are uncertain about her drinking history. She has intermittent episodes of drinking alcohol, but does have some binge drinking. No signs of alcohol withdrawal at this time.
--- NOTE | 2025-05-30 11:21 | CONSULTATION NOTE ---
Chief Complaint Chief Complaint Chief Complaint: L tib/fib fx; fall History of Present Illness History Obtained From History obtained from: pt & records History of Present Illness HPI Comment/Other: Consulted on this 75-year-old female for left tib-fib fracture. Patient states that she had a syncopal fall 05/28/2025. When she woke up she had left lower extremity pain and was brought to the ED. Dr. Galo at that time reviewed her x-rays and CT and felt that she met criteria for conservative management of her fractures. Patient was discharged home from the ED and came back to the ED last night and was admitted to the ICU for hyperosmolar hyperglycemic state. Today patient is seen in the ICU, she is alert and oriented x 3. Her pain is controlled. She states that her diabetes is normally well-controlled. [facility] Active Problems All Active Problems (Updated 05/30/25 @ 14:08 by Chelesy Mcmanus MD) Acute kidney injury (Acute) Leukocytosis (Acute) Metabolic acidosis due to diabetes mellitus (Acute) Hyperosmolar hyperglycemic state (HHS) (Acute) Encephalopathy (Acute) DKA, type 1 (Acute) Type 2 diabetes mellitus with hyperosmolar hyperglycemic state (HHS) (Acute) Tachycardia (Acute) Hypotension (Acute) Closed head injury (Acute) Fracture of tibia and fibula (Acute) History of shoulder fracture (Acute) Diabetes type 1 (Acute) Special screening for osteoporosis (Acute) Actinic keratosis (Acute) Aftercare for healing pathologic fracture of lower extremity (Acute) Menopausal state (Acute) Other screening mammogram (Acute) Hyperlipidemia (Acute) High risk medication use (Acute) Health care maintenance (Acute) Fatigue (Acute) Encounter for screening for other disorder (Acute) Closed fracture of left proximal humerus (Acute) Degenerative joint disease of knee, right (Acute) Osteoporosis (Chronic) Lumbar strain (Chronic) Alcohol use (Chronic) Full code status (Chronic) Fall (Acute) Diabetes type 1, controlled (Acute) Patellar fracture (Acute) Surgical History Surgical History No pertinent past surgical history Family History Family History Father Diabetes Social History Social History (Updated 05/30/25 @ 13:13 by Stacie A Koiro, PA-C) Smoking Status: Former smoker Second hand tobacco smoke exposure: No Do you dip or chew tobacco?: No Do you vape?: No Patient requests smoking cessation consult: No Initiate information on smoking cessation: No Living arrangement: At home Marital Status: Living Condition: With spouse/s.o. 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 #1 ea 09/25/24 05/29/25 (Dexcom G7 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 Relations Analyst) insulin aspart U-100 100 unit/mL See Rx Instructions s ubcut .before 12/26/24 05/30/25 (3 mL) subcutaneous pen (Novolog meals #15 mL FlexPen U-100 Insulin aspart) pen needle, diabetic 32 gauge x #100 ea 01/01/2505/29 5/16" (Comfort EZ Pen [place]) oxycodone-acetaminophen 5 mg-325 1 - 2 tab PO Q4H #30 tabs 05/29/25 05/30/25 mg tablet insulin glargine 100 unit/mL (3 12 - 14 unit subcut DA SHAMAR 05/30/25 05/30/25 mL) subcutaneous pen (Lantus Solostar U-100 Insulin) multivitamin 1 tab PO DAILY 05/30/2509/19 Allergies Allergies Allergy/AdvReac Type Severity Reaction Status Date / Time No Known Drug Allergies Allergy Verified 05/29/25 17:28 Results Lab Results Lab results reviewed: Yes 05/30/25 04:28 05/30/25 07:55 Other Lab Results: Lab Results x24hrs 05/30/25 05/30/25 05/30/25 Range/Units 11:16 08:59 07:55 WBC (4.8-10.8) x10^3/uL RBC (4.20-5.40) 10^6/uL Hgb (12.0-16.0) g/dL Hct (37.0-47.0) % MCV (81.0-99.0) fL MCH (27.0-31.0) pg MCHC (32.0-36.0) g/dL RDW (12.0-15.0) % Plt Count (130-450) 10^3/uL MPV (7.9-10.8) fL Neut # (Auto) (1.5-6.6) 10^3/uL Lymph # (Auto) (1.5-3.5) 10^3/uL [place] # (Auto) (0.0-1.0) 10^3/uL Eos # (Auto) (0.0-0.7) 10^3/uL Baso # (Auto) (0.0-0.1) 10^3/uL Absolute Nucleated RBC x10^3/uL Total Counted Band Neuts % (Manual) Abnorm Lymph % (Manual) Metamyelocytes % ( - 0) % Nucleated RBC % /100WBC Neutrophils # (Manual) Lymphocytes # (Manual) Monocytes # (Manual) Eosinophils # (Manual) Basophils # (Manual) Differential Comment Manual Slide Review WBC Morphology (NORMAL) Platelet Estimate (NORMAL) Platelet Morphology (NORMAL) RBC Morph Micro Appear (NORMAL) Bld Gas Analysis Time Sample Site ABG pH (7.35-7.45) ABG pCO2 (34-45) mmHg ABG pO2 (83-108) mmHg ABG HCO3 (22.0-26.0) mmol/L ABG Total CO2 (21.0-29.0) mmol/L ABG O2 Saturation (95-98) % ABG Base Excess (-2.0-3.0) mmol/L Isaac Test VBG pH (7.31-7.41) VBG pCO2 (41-51) mmHg VBG pO2 (25-47) mmHg VBG HCO3 (23-28) mmol/L VBG Total CO2 (24-29) mmol/L VBG O2 Saturation (60-80) % VBG Base Excess (-2 - +2) mmol/L Ionized Calcium (1.09-1.30) mmol/L O2 Delivery Device FiO2 Sodium 144 (135-145) mmol/L Potassium 4.0 (3.5-4.5) mmol/L Chloride 118 H (101-111) mmol/L Carbon Dioxide 21 (21-32) mmol/L Anion Gap 5.0 L (6-13) BUN 28 H (6-20) mg/dL Creatinine 1.3 (0.6-1.3) mg/dL Estimated GFR (MDRD) 40 L (>89) Glucose 78 (74-104) mg/dL POC Whole Bld Glucose 152 75 (70-100) mg/dL Lactic Acid (0.5-2.2) mmol/L Calcium 7.5 L (8.5-10.3) mg/dL Phosphorus 2.3 L (2.5-5.0) mg/dL Magnesium (1.7-2.3) mg/dL Total Bilirubin (0.2-1.0) mg/dL AST (10-42) IU/L ALT (10-60) IU/L Alkaline Phosphatase (42-121) IU/L Total Protein (6.4-8.9) g/dL Albumin (3.2-5.5) g/dL Globulin (2.1-4.2) g/dL Albumin/Globulin Ratio (1.0-2.2) Lipase Urine Color Urine Clarity (CLEAR) Urine pH (5.0-7.5) PH Ur Specific [place] (1.002-1.030) Urine Protein (NEGATIVE) mg/dL Urine Glucose (UA) (NEGATIVE) mg/dL Urine Ketones (NEGATIVE) mg/dL Urine Occult Blood (NEGATIVE) Urine Nitrite (NEGATIVE) Urine Bilirubin (NEGATIVE) Urine Urobilinogen (NORMAL) E.U./dL Ur Leukocyte Esterase (NEGATIVE) Ur Microscopic Review Urine Culture Comments Nasal Screen MRSA (PCR) (NEGATIVE) Urine Opiates Screen (NEGATIVE) Ur Buprenorphine Scrn (NEGATIVE) Ur Oxycodone Screen (NEGATIVE) Urine Methadone Screen (NEGATIVE) Urine Fentanyl Screen (NEGATIVE) Ur Barbiturates Screen (NEGATIVE) Ur Tricyclics Screen (NEGATIVE) Ur Phencyclidine Scrn (NEGATIVE) Ur Amphetamine Screen (NEGATIVE) U Methamphetamines Scrn (NEGATIVE) U Benzodiazepines Scrn (NEGATIVE) Urine Cocaine Screen (NEGATIVE) U Cannabinoids Screen (NEGATIVE) Ur Drug Screen Comment Ethyl Alcohol mg/dL Serum Ketones (NEGATIVE) 05/30/25 05/30/25 05/30/25 Range/Units 07:54 06:57 05:55 WBC (4.8-10.8) x10^3/uL RBC (4.20-5.40) 10^6/uL Hgb (12.0-16.0) g/dL Hct (37.0-47.0) % MCV (81.0-99.0) fL MCH (27.0-31.0) pg MCHC (32.0-36.0) g/dL RDW (12.0-15.0) % Plt Count (130-450) 10^3/uL MPV (7.9-10.8) fL Neut # (Auto) (1.5-6.6) 10^3/uL Lymph # (Auto) (1.5-3.5) 10^3/uL [place] # (Auto) (0.0-1.0) 10^3/uL Eos # (Auto) (0.0-0.7) 10^3/uL Baso # (Auto) (0.0-0.1) 10^3/uL Absolute Nucleated RBC x10^3/uL Total Counted Band Neuts % (Manual) Abnorm Lymph % (Manual) Metamyelocytes % ( - 0) % Nucleated RBC % /100WBC Neutrophils # (Manual) Lymphocytes # (Manual) Monocytes # (Manual) Eosinophils # (Manual) Basophils # (Manual) Differential Comment Manual Slide Review WBC Morphology (NORMAL) Platelet Estimate (NORMAL) Platelet Morphology (NORMAL) RBC Morph Micro Appear (NORMAL) Bld Gas Analysis Time Sample Site ABG pH (7.35-7.45) ABG pCO2 (34-45) mmHg ABG pO2 (83-108) mmHg ABG HCO3 (22.0-26.0) mmol/L ABG Total CO2 (21.0-29.0) mmol/L ABG O2 Saturation (95-98) % ABG Base Excess (-2.0-3.0) mmol/L Isaac Test VBG pH (7.31-7.41) VBG pCO2 (41-51) mmHg VBG pO2 (25-47) mmHg VBG HCO3 (23-28) mmol/L VBG Total CO2 (24-29) mmol/L VBG O2 Saturation (60-80) % VBG Base Excess (-2 - +2) mmol/L Ionized Calcium (1.09-1.30) mmol/L O2 Delivery Device FiO2 Sodium (135-145) mmol/L Potassium (3.5-4.5) mmol/L Chloride (101-111) mmol/L Carbon Dioxide (21-32) mmol/L Anion Gap (6-13) BUN (6-20) mg/dL Creatinine (0.6-1.3) mg/dL Estimated GFR (MDRD) (>89) Glucose (74-104) mg/dL POC Whole Bld Glucose 72 91 115 (70-100) mg/dL Lactic Acid (0.5-2.2) mmol/L Calcium (8.5-10.3) mg/dL Phosphorus (2.5-5.0) mg/dL Magnesium (1.7-2.3) mg/dL Total Bilirubin (0.2-1.0) mg/dL AST (10-42) IU/L ALT (10-60) IU/L Alkaline Phosphatase (42-121) IU/L Total Protein (6.4-8.9) g/dL Albumin (3.2-5.5) g/dL Globulin (2.1-4.2) g/dL Albumin/Globulin Ratio (1.0-2.2) Lipase Urine Color Urine Clarity (CLEAR) Urine pH (5.0-7.5) PH Ur Specific [place] (1.002-1.030) Urine Protein (NEGATIVE) mg/dL Urine Glucose (UA) (NEGATIVE) mg/dL Urine Ketones (NEGATIVE) mg/dL Urine Occult Blood (NEGATIVE) Urine Nitrite (NEGATIVE) Urine Bilirubin (NEGATIVE) Urine Urobilinogen (NORMAL) E.U./dL Ur Leukocyte Esterase (NEGATIVE) Ur Microscopic Review Urine Culture Comments Nasal Screen MRSA (PCR) (NEGATIVE) Urine Opiates Screen (NEGATIVE) Ur Buprenorphine Scrn (NEGATIVE) Ur Oxycodone Screen (NEGATIVE) Urine Methadone Screen (NEGATIVE) Urine Fentanyl Screen (NEGATIVE) Ur Barbiturates Screen (NEGATIVE) Ur Tricyclics Screen (NEGATIVE) Ur Phencyclidine Scrn (NEGATIVE) Ur Amphetamine Screen (NEGATIVE) U Methamphetamines Scrn (NEGATIVE) U Benzodiazepines Scrn (NEGATIVE) Urine Cocaine Screen (NEGATIVE) U Cannabinoids Screen (NEGATIVE) Ur Drug Screen Comment Ethyl Alcohol mg/dL Serum Ketones (NEGATIVE) 12/03/25 12/03/25 12/03/25 Range/Units 04:57 04:28 04:00 WBC 16.7 H (4.8-10.8) x10^3/uL RBC 3.34 L (4.20-5.40) 10^6/uL Hgb 10.1 L (12.0-16.0) g/dL Hct 32.2 L (37.0-47.0) % MCV 96.4 (81.0-99.0) fL MCH 30.2 (27.0-31.0) pg MCHC 31.4 L (32.0-36.0) g/dL RDW 12.9 (12.0-15.0) % Plt Count 250 (130-450) 10^3/uL MPV 10.1 (7.9-10.8) fL Neut # (Auto) Not Reportable (1.5-6.6) 10^3/uL Lymph # (Auto) Not Reportable (1.5-3.5) 10^3/uL [place] # (Auto) Not Reportable (0.0-1.0) 10^3/uL Eos # (Auto) Not Reportable (0.0-0.7) 10^3/uL Baso # (Auto) Not Reportable (0.0-0.1) 10^3/uL Absolute Nucleated RBC Not Reportable x10^3/uL Total Counted 100 Band Neuts % (Manual) 3 Abnorm Lymph % (Manual) 0 Metamyelocytes % ( - 0) % Nucleated RBC % Not Reportable /100WBC Neutrophils # (Manual) 14.4 H Lymphocytes # (Manual) 1.3 L Monocytes # (Manual) 1.0 Eosinophils # (Manual) 0.0 Basophils # (Manual) 0.0 Differential Comment MANUAL DIFFERENTIAL Manual Slide Review WBC Morphology NORMAL APPEARANCE (NORMAL) Platelet Estimate NORMAL (130-450,000) (NORMAL) Platelet Morphology NORMAL APPEARANCE (NORMAL) RBC Morph Micro Appear NORMAL APPEARANCE (NORMAL) Bld Gas Analysis Time Sample Site ABG pH (7.35-7.45) ABG pCO2 (34-45) mmHg ABG pO2 (83-108) mmHg ABG HCO3 (22.0-26.0) mmol/L ABG Total CO2 (21.0-29.0) mmol/L ABG O2 Saturation (95-98) % ABG Base Excess (-2.0-3.0) mmol/L Isaac Test VBG pH 7.294 L (7.31-7.41) VBG pCO2 (41-51) mmHg VBG pO2 (25-47) mmHg VBG HCO3 (23-28) mmol/L VBG Total CO2 (24-29) mmol/L VBG O2 Saturation (60-80) % VBG Base Excess (-2 - +2) mmol/L Ionized Calcium 1.09 (1.09-1.30) mmol/L O2 Delivery Device FiO2 Sodium 144 (135-145) mmol/L Potassium 3.7 (3.5-4.5) mmol/L Chloride 115 H (101-111) mmol/L Carbon Dioxide 20 L (21-32) mmol/L Anion Gap 9.0 (6-13) BUN 31 H (6-20) mg/dL Creatinine 1.4 H (0.6-1.3) mg/dL Estimated GFR (MDRD) 37 L (>89) Glucose 158 H (74-104) mg/dL POC Whole Bld Glucose 124 135 (70-100) mg/dL Lactic Acid 2.6 H (0.5-2.2) mmol/L Calcium 7.3 L (8.5-10.3) mg/dL Phosphorus 2.3 L (2.5-5.0) mg/dL Magnesium 1.9 (1.7-2.3) mg/dL Total Bilirubin (0.2-1.0) mg/dL AST (10-42) IU/L ALT (10-60) IU/L Alkaline Phosphatase (42-121) IU/L Total Protein (6.4-8.9) g/dL Albumin (3.2-5.5) g/dL Globulin (2.1-4.2) g/dL Albumin/Globulin Ratio (1.0-2.2) Lipase Urine Color Urine Clarity (CLEAR) Urine pH (5.0-7.5) PH Ur Specific [place] (1.002-1.030) Urine Protein (NEGATIVE) mg/dL Urine Glucose (UA) (NEGATIVE) mg/dL Urine Ketones (NEGATIVE) mg/dL Urine Occult Blood (NEGATIVE) Urine Nitrite (NEGATIVE) Urine Bilirubin (NEGATIVE) Urine Urobilinogen (NORMAL) E.U./dL Ur Leukocyte Esterase (NEGATIVE) Ur Microscopic Review Urine Culture Comments Nasal Screen MRSA (PCR) (NEGATIVE) Urine Opiates Screen (NEGATIVE) Ur Buprenorphine Scrn (NEGATIVE) Ur Oxycodone Screen (NEGATIVE) Urine Methadone Screen (NEGATIVE) Urine Fentanyl Screen (NEGATIVE) Ur Barbiturates Screen (NEGATIVE) Ur Tricyclics Screen (NEGATIVE) Ur Phencyclidine Scrn (NEGATIVE) Ur Amphetamine Screen (NEGATIVE) U Methamphetamines Scrn (NEGATIVE) U Benzodiazepines Scrn (NEGATIVE) Urine Cocaine Screen (NEGATIVE) U Cannabinoids Screen (NEGATIVE) Ur Drug Screen Comment Ethyl Alcohol mg/dL Serum Ketones (NEGATIVE) 05/30/25 05/30/25 05/30/25 Range/Units 03:01 01:58 01:00 WBC (4.8-10.8) x10^3/uL RBC (4.20-5.40) 10^6/uL Hgb (12.0-16.0) g/dL Hct (37.0-47.0) % MCV (81.0-99.0) fL MCH (27.0-31.0) pg MCHC (32.0-36.0) g/dL RDW (12.0-15.0) % Plt Count (130-450) 10^3/uL MPV (7.9-10.8) fL Neut # (Auto) (1.5-6.6) 10^3/uL Lymph # (Auto) (1.5-3.5) 10^3/uL [place] # (Auto) (0.0-1.0) 10^3/uL Eos # (Auto) (0.0-0.7) 10^3/uL Baso # (Auto) (0.0-0.1) 10^3/uL Absolute Nucleated RBC x10^3/uL Total Counted Band Neuts % (Manual) Abnorm Lymph % (Manual) Metamyelocytes % ( - 0) % Nucleated RBC % /100WBC Neutrophils # (Manual) Lymphocytes # (Manual) Monocytes # (Manual) Eosinophils # (Manual) Basophils # (Manual) Differential Comment Manual Slide Review WBC Morphology (NORMAL) Platelet Estimate (NORMAL) Platelet Morphology (NORMAL) RBC Morph Micro Appear (NORMAL) Bld Gas Analysis Time Sample Site ABG pH (7.35-7.45) ABG pCO2 (34-45) mmHg ABG pO2 (83-108) mmHg ABG HCO3 (22.0-26.0) mmol/L ABG Total CO2 (21.0-29.0) mmol/L ABG O2 Saturation (95-98) % ABG Base Excess (-2.0-3.0) mmol/L Isaac Test VBG pH (7.31-7.41) VBG pCO2 (41-51) mmHg VBG pO2 (25-47) mmHg VBG HCO3 (23-28) mmol/L VBG Total CO2 (24-29) mmol/L VBG O2 Saturation (60-80) % VBG Base Excess (-2 - +2) mmol/L Ionized Calcium (1.09-1.30) mmol/L O2 Delivery Device FiO2 Sodium (135-145) mmol/L Potassium (3.5-4.5) mmol/L Chloride (101-111) mmol/L Carbon Dioxide (21-32) mmol/L Anion Gap (6-13) BUN (6-20) mg/dL Creatinine (0.6-1.3) mg/dL Estimated GFR (MDRD) (>89) Glucose (74-104) mg/dL POC Whole Bld Glucose 148 206 280 (70-100) mg/dL Lactic Acid (0.5-2.2) mmol/L Calcium (8.5-10.3) mg/dL Phosphorus (2.5-5.0) mg/dL Magnesium (1.7-2.3) mg/dL Total Bilirubin (0.2-1.0) mg/dL AST (10-42) IU/L ALT (10-60) IU/L Alkaline Phosphatase (42-121) IU/L Total Protein (6.4-8.9) g/dL Albumin (3.2-5.5) g/dL Globulin (2.1-4.2) g/dL Albumin/Globulin Ratio (1.0-2.2) Lipase Urine Color Urine Clarity (CLEAR) Urine pH (5.0-7.5) PH Ur Specific [place] (1.002-1.030) Urine Protein (NEGATIVE) mg/dL Urine Glucose (UA) (NEGATIVE) mg/dL Urine Ketones (NEGATIVE) mg/dL Urine Occult Blood (NEGATIVE) Urine Nitrite (NEGATIVE) Urine Bilirubin (NEGATIVE) Urine Urobilinogen (NORMAL) E.U./dL Ur Leukocyte Esterase (NEGATIVE) Ur Microscopic Review Urine Culture Comments Nasal Screen MRSA (PCR) (NEGATIVE) Urine Opiates Screen (NEGATIVE) Ur Buprenorphine Scrn (NEGATIVE) Ur Oxycodone Screen (NEGATIVE) Urine Methadone Screen (NEGATIVE) Urine Fentanyl Screen (NEGATIVE) Ur Barbiturates Screen (NEGATIVE) Ur Tricyclics Screen (NEGATIVE) Ur Phencyclidine Scrn (NEGATIVE) Ur Amphetamine Screen (NEGATIVE) U Methamphetamines Scrn (NEGATIVE) U Benzodiazepines Scrn (NEGATIVE) Urine Cocaine Screen (NEGATIVE) U Cannabinoids Screen (NEGATIVE) Ur Drug Screen Comment Ethyl Alcohol mg/dL Serum Ketones (NEGATIVE) 05/30/25 05/29/25 05/29/25 Range/Units 00:01 22:57 22:11 WBC (4.8-10.8) x10^3/uL RBC (4.20-5.40) 10^6/uL Hgb (12.0-16.0) g/dL Hct (37.0-47.0) % MCV (81.0-99.0) fL MCH (27.0-31.0) pg MCHC (32.0-36.0) g/dL RDW (12.0-15.0) % Plt Count (130-450) 10^3/uL MPV (7.9-10.8) fL Neut # (Auto) (1.5-6.6) 10^3/uL Lymph # (Auto) (1.5-3.5) 10^3/uL [place] # (Auto) (0.0-1.0) 10^3/uL Eos # (Auto) (0.0-0.7) 10^3/uL Baso # (Auto) (0.0-0.1) 10^3/uL Absolute Nucleated RBC x10^3/uL Total Counted Band Neuts % (Manual) Abnorm Lymph % (Manual) Metamyelocytes % ( - 0) % Nucleated RBC % /100WBC Neutrophils # (Manual) Lymphocytes # (Manual) Monocytes # (Manual) Eosinophils # (Manual) Basophils # (Manual) Differential Comment Manual Slide Review WBC Morphology (NORMAL) Platelet Estimate (NORMAL) Platelet Morphology (NORMAL) RBC Morph Micro Appear (NORMAL) Bld Gas Analysis Time Sample Site ABG pH (7.35-7.45) ABG pCO2 (34-45) mmHg ABG pO2 (83-108) mmHg ABG HCO3 (22.0-26.0) mmol/L ABG Total CO2 (21.0-29.0) mmol/L ABG O2 Saturation (95-98) % ABG Base Excess (-2.0-3.0) mmol/L Isaac Test VBG pH (7.31-7.41) VBG pCO2 (41-51) mmHg VBG pO2 (25-47) mmHg VBG HCO3 (23-28) mmol/L VBG Total CO2 (24-29) mmol/L VBG O2 Saturation (60-80) % VBG Base Excess (-2 - +2) mmol/L Ionized Calcium (1.09-1.30) mmol/L O2 Delivery Device FiO2 Sodium 143 (135-145) mmol/L Potassium 3.9 (3.5-4.5) mmol/L Chloride 115 H (101-111) mmol/L Carbon Dioxide 21 (21-32) mmol/L Anion Gap 7.0 (6-13) BUN 35 H (6-20) mg/dL Creatinine 1.6 H (0.6-1.3) mg/dL Estimated GFR (MDRD) 32 L (>89) Glucose 330 H 428 H (74-104) mg/dL POC Whole Bld Glucose 302 338 (70-100) mg/dL Lactic Acid 1.8 (0.5-2.2) mmol/L Calcium 7.4 L (8.5-10.3) mg/dL Phosphorus (2.5-5.0) mg/dL Magnesium (1.7-2.3) mg/dL Total Bilirubin (0.2-1.0) mg/dL AST (10-42) IU/L ALT (10-60) IU/L Alkaline Phosphatase (42-121) IU/L Total Protein (6.4-8.9) g/dL Albumin (3.2-5.5) g/dL Globulin (2.1-4.2) g/dL Albumin/Globulin Ratio (1.0-2.2) Lipase Urine Color Urine Clarity (CLEAR) Urine pH (5.0-7.5) PH Ur Specific [place] (1.002-1.030) Urine Protein (NEGATIVE) mg/dL Urine Glucose (UA) (NEGATIVE) mg/dL Urine Ketones (NEGATIVE) mg/dL Urine Occult Blood (NEGATIVE) Urine Nitrite (NEGATIVE) Urine Bilirubin (NEGATIVE) Urine Urobilinogen (NORMAL) E.U./dL Ur Leukocyte Esterase (NEGATIVE) Ur Microscopic Review Urine Culture Comments Nasal Screen MRSA (PCR) (NEGATIVE) Urine Opiates Screen (NEGATIVE) Ur Buprenorphine Scrn (NEGATIVE) Ur Oxycodone Screen (NEGATIVE) Urine Methadone Screen (NEGATIVE) Urine Fentanyl Screen (NEGATIVE) Ur Barbiturates Screen (NEGATIVE) Ur Tricyclics Screen (NEGATIVE) Ur Phencyclidine Scrn (NEGATIVE) Ur Amphetamine Screen (NEGATIVE) U Methamphetamines Scrn (NEGATIVE) U Benzodiazepines Scrn (NEGATIVE) Urine Cocaine Screen (NEGATIVE) U Cannabinoids Screen (NEGATIVE) Ur Drug Screen Comment Ethyl Alcohol mg/dL Serum Ketones (NEGATIVE) 05/29/25 05/29/25 05/29/25 Range/Units 21:20 20:53 20:00 WBC (4.8-10.8) x10^3/uL RBC (4.20-5.40) 10^6/uL Hgb (12.0-16.0) g/dL Hct (37.0-47.0) % MCV (81.0-99.0) fL MCH (27.0-31.0) pg MCHC (32.0-36.0) g/dL RDW (12.0-15.0) % Plt Count (130-450) 10^3/uL MPV (7.9-10.8) fL Neut # (Auto) (1.5-6.6) 10^3/uL Lymph # (Auto) (1.5-3.5) 10^3/uL [place] # (Auto) (0.0-1.0) 10^3/uL Eos # (Auto) (0.0-0.7) 10^3/uL Baso # (Auto) (0.0-0.1) 10^3/uL Absolute Nucleated RBC x10^3/uL Total Counted Band Neuts % (Manual) Abnorm Lymph % (Manual) Metamyelocytes % ( - 0) % Nucleated RBC % /100WBC Neutrophils # (Manual) Lymphocytes # (Manual) Monocytes # (Manual) Eosinophils # (Manual) Basophils # (Manual) Differential Comment Manual Slide Review WBC Morphology (NORMAL) Platelet Estimate (NORMAL) Platelet Morphology (NORMAL) RBC Morph Micro Appear (NORMAL) Bld Gas Analysis Time 2125 Sample Site RIGHT RADIAL ABG pH 7.22 L (7.35-7.45) ABG pCO2 27 L (34-45) mmHg ABG pO2 90 (83-108) mmHg ABG HCO3 10.9 L (22.0-26.0) mmol/L ABG Total CO2 11.7 L* (21.0-29.0) mmol/L ABG O2 Saturation 98 (95-98) % ABG Base Excess -17.0 L (-2.0-3.0) mmol/L Isaac Test POSITIVE VBG pH (7.31-7.41) VBG pCO2 (41-51) mmHg VBG pO2 (25-47) mmHg VBG HCO3 (23-28) mmol/L VBG Total CO2 (24-29) mmol/L VBG O2 Saturation (60-80) % VBG Base Excess (-2 - +2) mmol/L Ionized Calcium (1.09-1.30) mmol/L O2 Delivery Device NO DEVICE/ROOM AIR FiO2 21.00 Sodium (135-145) mmol/L Potassium (3.5-4.5) mmol/L Chloride (101-111) mmol/L Carbon Dioxide (21-32) mmol/L Anion Gap (6-13) BUN (6-20) mg/dL Creatinine (0.6-1.3) mg/dL Estimated GFR (MDRD) (>89) Glucose 522 H* (74-104) mg/dL POC Whole Bld Glucose (70-100) mg/dL Lactic Acid (0.5-2.2) mmol/L Calcium (8.5-10.3) mg/dL Phosphorus (2.5-5.0) mg/dL Magnesium (1.7-2.3) mg/dL Total Bilirubin (0.2-1.0) mg/dL AST (10-42) IU/L ALT (10-60) IU/L Alkaline Phosphatase (42-121) IU/L Total Protein (6.4-8.9) g/dL Albumin (3.2-5.5) g/dL Globulin (2.1-4.2) g/dL Albumin/Globulin Ratio (1.0-2.2) Lipase Urine Color Urine Clarity (CLEAR) Urine pH (5.0-7.5) PH Ur Specific [place] (1.002-1.030) Urine Protein (NEGATIVE) mg/dL Urine Glucose (UA) (NEGATIVE) mg/dL Urine Ketones (NEGATIVE) mg/dL Urine Occult Blood (NEGATIVE) Urine Nitrite (NEGATIVE) Urine Bilirubin (NEGATIVE) Urine Urobilinogen (NORMAL) E.U./dL Ur Leukocyte Esterase (NEGATIVE) Ur Microscopic Review Urine Culture Comments Nasal Screen MRSA (PCR) NEGATIVE (NEGATIVE) Urine Opiates Screen (NEGATIVE) Ur Buprenorphine Scrn (NEGATIVE) Ur Oxycodone Screen (NEGATIVE) Urine Methadone Screen (NEGATIVE) Urine Fentanyl Screen (NEGATIVE) Ur Barbiturates Screen (NEGATIVE) Ur Tricyclics Screen (NEGATIVE) Ur Phencyclidine Scrn (NEGATIVE) Ur Amphetamine Screen (NEGATIVE) U Methamphetamines Scrn (NEGATIVE) U Benzodiazepines Scrn (NEGATIVE) Urine Cocaine Screen (NEGATIVE) U Cannabinoids Screen (NEGATIVE) Ur Drug Screen Comment Ethyl Alcohol mg/dL Serum Ketones (NEGATIVE) 05/29/25 05/29/25 05/29/25 Range/Units 19:27 19:19 19:02 WBC (4.8-10.8) x10^3/uL RBC (4.20-5.40) 10^6/uL Hgb (12.0-16.0) g/dL Hct (37.0-47.0) % MCV (81.0-99.0) fL MCH (27.0-31.0) pg MCHC (32.0-36.0) g/dL RDW (12.0-15.0) % Plt Count (130-450) 10^3/uL MPV (7.9-10.8) fL Neut # (Auto) (1.5-6.6) 10^3/uL Lymph # (Auto) (1.5-3.5) 10^3/uL [place] # (Auto) (0.0-1.0) 10^3/uL Eos # (Auto) (0.0-0.7) 10^3/uL Baso # (Auto) (0.0-0.1) 10^3/uL Absolute Nucleated RBC x10^3/uL Total Counted Band Neuts % (Manual) Abnorm Lymph % (Manual) Metamyelocytes % ( - 0) % Nucleated RBC % /100WBC Neutrophils # (Manual) Lymphocytes # (Manual) Monocytes # (Manual) Eosinophils # (Manual) Basophils # (Manual) Differential Comment Manual Slide Review WBC Morphology (NORMAL) Platelet Estimate (NORMAL) Platelet Morphology (NORMAL) RBC Morph Micro Appear (NORMAL) Bld Gas Analysis Time Sample Site ABG pH (7.35-7.45) ABG pCO2 (34-45) mmHg ABG pO2 (83-108) mmHg ABG HCO3 (22.0-26.0) mmol/L ABG Total CO2 (21.0-29.0) mmol/L ABG O2 Saturation (95-98) % ABG Base Excess (-2.0-3.0) mmol/L Isaac Test VBG pH (7.31-7.41) VBG pCO2 (41-51) mmHg VBG pO2 (25-47) mmHg VBG HCO3 (23-28) mmol/L VBG Total CO2 (24-29) mmol/L VBG O2 Saturation (60-80) % VBG Base Excess (-2 - +2) mmol/L Ionized Calcium (1.09-1.30) mmol/L O2 Delivery Device FiO2 Sodium 136 (135-145) mmol/L Potassium 5.1 H (3.5-4.5) mmol/L Chloride 100 L (101-111) mmol/L Carbon Dioxide 10 L* (21-32) mmol/L Anion Gap 26.0 H (6-13) BUN 40 H (6-20) mg/dL Creatinine 1.8 H (0.6-1.3) mg/dL Estimated GFR (MDRD) 28 L (>89) Glucose 756 H* (74-104) mg/dL POC Whole Bld Glucose > 600 (70-100) mg/dL Lactic Acid 6.7 H* (0.5-2.2) mmol/L Calcium 8.4 L (8.5-10.3) mg/dL Phosphorus (2.5-5.0) mg/dL Magnesium (1.7-2.3) mg/dL Total Bilirubin (0.2-1.0) mg/dL AST (10-42) IU/L ALT (10-60) IU/L Alkaline Phosphatase (42-121) IU/L Total Protein (6.4-8.9) g/dL Albumin (3.2-5.5) g/dL Globulin (2.1-4.2) g/dL Albumin/Globulin Ratio (1.0-2.2) Lipase Urine Color Urine Clarity (CLEAR) Urine pH (5.0-7.5) PH Ur Specific [place] (1.002-1.030) Urine Protein (NEGATIVE) mg/dL Urine Glucose (UA) (NEGATIVE) mg/dL Urine Ketones (NEGATIVE) mg/dL Urine Occult Blood (NEGATIVE) Urine Nitrite (NEGATIVE) Urine Bilirubin (NEGATIVE) Urine Urobilinogen (NORMAL) E.U./dL Ur Leukocyte Esterase (NEGATIVE) Ur Microscopic Review Urine Culture Comments Nasal Screen MRSA (PCR) (NEGATIVE) Urine Opiates Screen (NEGATIVE) Ur Buprenorphine Scrn (NEGATIVE) Ur Oxycodone Screen (NEGATIVE) Urine Methadone Screen (NEGATIVE) Urine Fentanyl Screen (NEGATIVE) Ur Barbiturates Screen (NEGATIVE) Ur Tricyclics Screen (NEGATIVE) Ur Phencyclidine Scrn (NEGATIVE) Ur Amphetamine Screen (NEGATIVE) U Methamphetamines Scrn (NEGATIVE) U Benzodiazepines Scrn (NEGATIVE) Urine Cocaine Screen (NEGATIVE) U Cannabinoids Screen (NEGATIVE) Ur Drug Screen Comment Ethyl Alcohol mg/dL Serum Ketones (NEGATIVE) 05/29/25 05/29/25 05/29/25 Range/Units 18:55 18:28 18:22 WBC 18.2 H (4.8-10.8) x10^3/uL RBC 3.69 L (4.20-5.40) 10^6/uL Hgb 11.1 L (12.0-16.0) g/dL Hct 36.0 L (37.0-47.0) % MCV 97.6 (81.0-99.0) fL MCH 30.1 (27.0-31.0) pg MCHC 30.8 L (32.0-36.0) g/dL RDW 12.9 (12.0-15.0) % Plt Count 343 (130-450) 10^3/uL MPV 10.5 (7.9-10.8) fL Neut # (Auto) Not Reportable (1.5-6.6) 10^3/uL Lymph # (Auto) Not Reportable (1.5-3.5) 10^3/uL [place] # (Auto) Not Reportable (0.0-1.0) 10^3/uL Eos # (Auto) Not Reportable (0.0-0.7) 10^3/uL Baso # (Auto) Not Reportable (0.0-0.1) 10^3/uL Absolute Nucleated RBC Not Reportable x10^3/uL Total Counted 100 Band Neuts % (Manual) 2 Abnorm Lymph % (Manual) 0 Metamyelocytes % 4 H ( - 0) % Nucleated RBC % Not Reportable /100WBC Neutrophils # (Manual) 15.3 H Lymphocytes # (Manual) 0.7 L Monocytes # (Manual) 1.5 H Eosinophils # (Manual) 0.0 Basophils # (Manual) 0.0 Differential Comment MANUAL DIFFERENTIAL Manual Slide Review Indicated WBC Morphology 1+ VACUOLATION (NORMAL) Platelet Estimate NORMAL (130-450,000) (NORMAL) Platelet Morphology NORMAL APPEARANCE (NORMAL) RBC Morph Micro Appear NORMAL APPEARANCE (NORMAL) Bld Gas Analysis Time Sample Site ABG pH (7.35-7.45) ABG pCO2 (34-45) mmHg ABG pO2 (83-108) mmHg ABG HCO3 (22.0-26.0) mmol/L ABG Total CO2 (21.0-29.0) mmol/L ABG O2 Saturation (95-98) % ABG Base Excess (-2.0-3.0) mmol/L Isaac Test VBG pH 7.068 L* (7.31-7.41) VBG pCO2 34.9 L (41-51) mmHg VBG pO2 80.1 H (25-47) mmHg VBG HCO3 10.2 L (23-28) mmol/L VBG Total CO2 11.2 L (24-29) mmol/L VBG O2 Saturation 91.0 H (60-80) % VBG Base Excess -20.2 L (-2 - +2) mmol/L Ionized Calcium (1.09-1.30) mmol/L O2 Delivery Device FiO2 Sodium Cancelled (135-145) mmol/L Potassium Cancelled (3.5-4.5) mmol/L Chloride Cancelled (101-111) mmol/L Carbon Dioxide Cancelled (21-32) mmol/L Anion Gap Cancelled (6-13) BUN Cancelled (6-20) mg/dL Creatinine Cancelled (0.6-1.3) mg/dL Estimated GFR (MDRD) Cancelled (>89) Glucose Cancelled (74-104) mg/dL POC Whole Bld Glucose (70-100) mg/dL Lactic Acid (0.5-2.2) mmol/L Calcium Cancelled (8.5-10.3) mg/dL Phosphorus (2.5-5.0) mg/dL Magnesium (1.7-2.3) mg/dL Total Bilirubin Cancelled (0.2-1.0) mg/dL AST Cancelled (10-42) IU/L ALT Cancelled (10-60) IU/L Alkaline Phosphatase Cancelled (42-121) IU/L Total Protein Cancelled (6.4-8.9) g/dL Albumin Cancelled (3.2-5.5) g/dL Globulin Cancelled (2.1-4.2) g/dL Albumin/Globulin Ratio Cancelled (1.0-2.2) Lipase Cancelled Urine Color YELLOW Urine Clarity CLEAR (CLEAR) Urine pH 6.0 (5.0-7.5) PH Ur Specific [place] 1.015 (1.002-1.030) Urine Protein NEGATIVE (NEGATIVE) mg/dL Urine Glucose (UA) >=1000 H (NEGATIVE) mg/dL Urine Ketones 40 H (NEGATIVE) mg/dL Urine Occult Blood NEGATIVE (NEGATIVE) Urine Nitrite NEGATIVE (NEGATIVE) Urine Bilirubin NEGATIVE (NEGATIVE) Urine Urobilinogen 0.2 (NORMAL) (NORMAL) E.U./dL Ur Leukocyte Esterase NEGATIVE (NEGATIVE) Ur Microscopic Review NOT INDICATED Urine Culture Comments NOT INDICATED Nasal Screen MRSA (PCR) (NEGATIVE) Urine Opiates Screen POSITIVE H (NEGATIVE) Ur Buprenorphine Scrn NEGATIVE (NEGATIVE) Ur Oxycodone Screen POSITIVE H (NEGATIVE) Urine Methadone Screen NEGATIVE (NEGATIVE) Urine Fentanyl Screen Negative (NEGATIVE) Ur Barbiturates Screen NEGATIVE (NEGATIVE) Ur Tricyclics Screen NEGATIVE (NEGATIVE) Ur Phencyclidine Scrn NEGATIVE (NEGATIVE) Ur Amphetamine Screen NEGATIVE (NEGATIVE) U Methamphetamines Scrn NEGATIVE (NEGATIVE) U Benzodiazepines Scrn NEGATIVE (NEGATIVE) Urine Cocaine Screen NEGATIVE (NEGATIVE) U Cannabinoids Screen NEGATIVE (NEGATIVE) Ur Drug Screen Comment CUTOFF CONC BELOW: Ethyl Alcohol mg/dL Serum Ketones Cancelled (NEGATIVE) 05/29/25 05/29/25 Range/Units 17:40 17:31 WBC 19.0 H (4.8-10.8) x10^3/uL RBC 4.14 L (4.20-5.40) 10^6/uL Hgb 12.6 (12.0-16.0) g/dL Hct 40.1 (37.0-47.0) % MCV 96.9 (81.0-99.0) fL MCH 30.4 (27.0-31.0) pg MCHC 31.4 L (32.0-36.0) g/dL RDW 12.7 (12.0-15.0) % Plt Count 408 (130-450) 10^3/uL MPV 10.3 (7.9-10.8) fL Neut # (Auto) 16.3 H (1.5-6.6) 10^3/uL Lymph # (Auto) 0.7 L (1.5-3.5) 10^3/uL [place] # (Auto) 1.7 H (0.0-1.0) 10^3/uL Eos # (Auto) 0.0 (0.0-0.7) 10^3/uL Baso # (Auto) 0.1 (0.0-0.1) 10^3/uL Absolute Nucleated RBC 0.00 x10^3/uL Total Counted Band Neuts % (Manual) Not Reportable Abnorm Lymph % (Manual) Not Reportable Metamyelocytes % ( - 0) % Nucleated RBC % 0.0 /100WBC Neutrophils # (Manual) Not Reportable Lymphocytes # (Manual) Not Reportable Monocytes # (Manual) Not Reportable Eosinophils # (Manual) Not Reportable Basophils # (Manual) Not Reportable Differential Comment MANUAL=AUTO DIFF Manual Slide Review Indicated WBC Morphology NORMAL APPEARANCE (NORMAL) Platelet Estimate NORMAL (130-450,000) (NORMAL) Platelet Morphology NORMAL APPEARANCE (NORMAL) RBC Morph Micro Appear NORMAL APPEARANCE (NORMAL) Bld Gas Analysis Time Sample Site ABG pH (7.35-7.45) ABG pCO2 (34-45) mmHg ABG pO2 (83-108) mmHg ABG HCO3 (22.0-26.0) mmol/L ABG Total CO2 (21.0-29.0) mmol/L ABG O2 Saturation (95-98) % ABG Base Excess (-2.0-3.0) mmol/L Isaac Test VBG pH (7.31-7.41) VBG pCO2 (41-51) mmHg VBG pO2 (25-47) mmHg VBG HCO3 (23-28) mmol/L VBG Total CO2 (24-29) mmol/L VBG O2 Saturation (60-80) % VBG Base Excess (-2 - +2) mmol/L Ionized Calcium (1.09-1.30) mmol/L O2 Delivery Device FiO2 Sodium 133 L (135-145) mmol/L Potassium 5.9 H (3.5-4.5) mmol/L Chloride 90 L (101-111) mmol/L Carbon Dioxide 16 L (21-32) mmol/L Anion Gap 27.0 H (6-13) BUN 41 H (6-20) mg/dL Creatinine 1.9 H (0.6-1.3) mg/dL Estimated GFR (MDRD) 26 L (>89) Glucose 796 H* (74-104) mg/dL POC Whole Bld Glucose > 600 (70-100) mg/dL Lactic Acid (0.5-2.2) mmol/L Calcium 9.5 (8.5-10.3) mg/dL Phosphorus (2.5-5.0) mg/dL Magnesium (1.7-2.3) mg/dL Total Bilirubin 0.8 (0.2-1.0) mg/dL AST 18 (10-42) IU/L ALT 16 (10-60) IU/L Alkaline Phosphatase 91 (42-121) IU/L Total Protein 7.3 (6.4-8.9) g/dL Albumin 4.5 (3.2-5.5) g/dL Globulin 2.8 (2.1-4.2) g/dL Albumin/Globulin Ratio 1.6 (1.0-2.2) Lipase Urine Color Urine Clarity (CLEAR) Urine pH (5.0-7.5) PH Ur Specific [place] (1.002-1.030) Urine Protein (NEGATIVE) mg/dL Urine Glucose (UA) (NEGATIVE) mg/dL Urine Ketones (NEGATIVE) mg/dL Urine Occult Blood (NEGATIVE) Urine Nitrite (NEGATIVE) Urine Bilirubin (NEGATIVE) Urine Urobilinogen (NORMAL) E.U./dL Ur Leukocyte Esterase (NEGATIVE) Ur Microscopic Review Urine Culture Comments Nasal Screen MRSA (PCR) (NEGATIVE) Urine Opiates Screen (NEGATIVE) Ur Buprenorphine Scrn (NEGATIVE) Ur Oxycodone Screen (NEGATIVE) Urine Methadone Screen (NEGATIVE) Urine Fentanyl Screen (NEGATIVE) Ur Barbiturates Screen (NEGATIVE) Ur Tricyclics Screen (NEGATIVE) Ur Phencyclidine Scrn (NEGATIVE) Ur Amphetamine Screen (NEGATIVE) U Methamphetamines Scrn (NEGATIVE) U Benzodiazepines Scrn (NEGATIVE) Urine Cocaine Screen (NEGATIVE) U Cannabinoids Screen (NEGATIVE) Ur Drug Screen Comment Ethyl Alcohol < 10.0 mg/dL Serum Ketones SMALL H (NEGATIVE) Diagnostic Imaging Results Diagnostic Imaging Results: positive Final report reviewed Diagnostic Imaging Results Comments: 05/28/2025: X-ray left TiB/fib: 1. Comminuted, displaced distal tibial diaphyseal fracture. Possible fracture line extension to the medial malleolus. 2. Comminuted, displaced and minimally impacted fracture of the fibular head. 3. Suspected minimally displaced distal fibular fracture. 05/29/2025: CT left lower extremity: Comminuted, mildly displaced oblique fracture of the distal tibial diaphysis. Nondisplaced oblique fracture of the distal fibula extending across the level of the syndesmosis and into the ankle mortise. Comminuted and mildly displaced fracture of the fibular head. Small linear lucency at the anterior articular surface of the distal tibia at the tibiotalar joint, may reflect additional intra-articular fracture line. Small tibiotalar joint effusion. Review of Systems Status of ROS: 10 or more systems reviewed and unremarkable except as noted in history and below Exam Exam Vital Signs: Vital Signs x48h Temp Pulse Pulse Resp BP BP Pulse Ox 05/30/25 11:00 96 21 111/58 L 92 05/30/25 10:00 37.8 C 96 21 104/58 L 92 05/30/25 09:00 37.7 C 105 H 16 102/59 L 95 05/30/25 08:00 37.7 C 112 H 14 93/66 93 05/30/25 07:00 37.6 C 99 18 91/52 L 94 05/30/25 06:50 97 100/60 05/30/25 06:45 100 88/52 L 05/30/25 06:40 92 98/57 L 05/30/25 06:35 94 96/64 05/30/25 06:30 100 101/67 05/30/25 06:25 94 111/61 05/30/25 06:20 93 102/57 L 05/30/25 06:15 97 116/78 05/30/25 06:10 84 109/68 05/30/25 06:05 84 119/67 05/30/25 06:00 37.7 C 100 15 125/71 95 05/30/25 05:00 37.7 C 102 H 17 119/67 95 05/30/25 05:00 37.6 C 98 16 119/67 91 L 05/30/25 04:30 37.7 C 110 H 17 117/73 94 05/30/25 04:15 37.6 C 86 15 111/64 95 05/30/25 04:00 37.6 C 89 15 117/69 94 05/30/25 04:00 37.6 C 92 17 117/69 95 05/30/25 03:45 37.6 C 100 22 121/64 95 05/30/25 03:30 37.5 C 86 14 114/74 94 05/30/25 03:30 37.3 C 86 15 114/74 94 General appearance: alert, awake, oriented x 3, well-nourished Fracture: L tib/fib Head/Eyes: atraumatic Extremities/Vascular: pedal pulses intact, radial pulses intact Musculoskeletal: LLE splinted & wrapped in compression wrap Neuro/QUALITY CONTROL COORDINATOR: alert, follows commands; NVI distally Skin: warm, dry, intact, without erythema, warmth, ecchymosis or obvious clinical deformity (splint was not removed Psychiatry: normal affect Conclusion/Plan Problem List (1) Fracture of tibia and fibula: Qualifiers: Encounter type: initial encounter Fracture type: closed Laterality: l eft Qualified Code(s): S82.202A - Unspecified fracture of shaft of left tibia, initial encounter for closed fracture; S82.402A - Unspecified fracture of shaft of left fibula, initial encounter for closed fracture (2) Hyperosmolar hyperglycemic state (HHS): (3) Closed head injury: Qualifiers: Encounter type: initial encounter Qualified Code(s): S09.90XA - Unspecified injury of head, initial encounter (4) Metabolic acidosis due to diabetes mellitus: (5) Alcohol use: Plan med mgmt per internal medicine [facility] with Dr. Galo 05/31/25; NPO MN; IVF per primary OOB to chair; ambulate with PT pain control; bowel regimen PT/OT: NWB LLE w splint DVT prophylaxis per primary IS CM for dispo DW Dr. Galo Lab Results Lab results reviewed: Yes 05/30/25 04:28 05/30/25 07:55 Diagnostic Imaging Results Diagnostic Imaging Results: positive Final report reviewed
[2025-05-30] MEDS: INSULIN GLARGINE-YFGN 300 UNIT/3 ML PEN SUBQ SCH (20:41)
[2025-05-30] MEDS: oxyCODONE 5 MG TABLET PO PRN (20:44)
[2025-05-31 05:04] LABS: HCT - HEMATOCRIT 28.4 % (37.0-47.0); HGB - HEMOGLOBIN 9.3 g/dL (12.0-16.0); MEAN PLATELET VOLUME 9.8 fL (7.9-10.8); NRBC ABSOLUTE COUNT (AUTO) 0.00 x10^3/uL; NUCLEATED RED BLOOD CELLS AUTO 0.0 /100WBC; PLT - PLATELET COUNT 145 10^3/uL (130-450); RED CELL DISTRIBUTION WIDTH 13.2 % (12.0-15.0)
[2025-05-31 05:17] LABS: BUN - BLOOD UREA NITROGEN 20.0 mg/dL (6-20); CARBON DIOXIDE - CO2 21.0 mmol/L (21-32); CREATININE 1.1 mg/dL (0.6-1.3); GFR - MDRD 49.0 (>89); PHOSPHORUS 2.1 mg/dL (2.5-5.0)
[2025-05-31 05:35] LABS: VBG PH 7.452 (7.31-7.41)
[2025-05-31] MEDS ORDERED: ENOXAPARIN 40 MG/0.4 ML SYRINGE SUBQ SCH (09:00)
--- NOTE | 2025-05-31 11:20 | PROVIDER PROGRESS NOTE ---
Subjective Subjective Subjective: This morning, patient states that she's feeling a lot better. She denies any fevers, chills, shortness of breath, nausea, episodes of emesis. She has some pain in the left leg, just with movement. She is looking forward to her surgery today. Plan is to work with physical therapy today. She will likely need SNF/rehab, but she would prefer to go home. Current Medications Current Medications Current Medications: Current Medications Generic Name Dose Route Start Last Admin Trade Name Freq PRN Reason Stop Dose Admin Acetaminophen 650 mg 05/29/25 19:26 Acetaminophen 325 Mg Tablet PO Q4HR PRN Pain 1 to 4, or Fever Insulin Glargine-yfgn 12 unit 05/30/25 21:00 05/30/25 20:41 Insulin Glargine-Yfgn 300 Unit/3 Ml Pen SUBQ 12 unit QPM JASON Administration Insulin Human Lispro 1 - 9 unit 05/30/25 17:10 05/31/25 08:03 Insulin Lispro 300 Unit/3 Ml Pen SUBQ Not Given 0800,1200,1700,2100 JASON Protocol Oxycodone HCl 5 mg 05/29/25 19:26 05/30/25 20:44 Oxycodone 5 Mg Tablet PO 5 mg Q4HR PRN Administration Pain 5 to 7 Sodium Chloride 10 ml 05/30/25 01:00 05/31/25 08:02 Sodium Chloride Flush 0.9% 10 Ml Syringe IVP 10 ml 0100,0900,1700 JASON Administration Sodium Chloride 10 ml 05/29/25 19:26 05/30/25 20:43 Sodium Chloride Flush 0.9% 10 Ml Syringe IVP 10 ml PRN PRN Administration NEEDED PER PROVIDER ORDERS Objective Vital Signs/Intake & Output Reviewed Vital Signs: Yes Vital Signs: Vital Signs x48h Temp Pulse Resp BP Pulse Ox 05/31/25 08:15 98.2 F 87 18 122/83 94 Intake & Output: Intake & Output 05/28/25 05/29/25 05/30/25 05/31/25 23:59 23:59 23:59 23:59 Intake Total 3167 / 3167 7012 / 7012 Output Total 485 / 485 565 / 565 400 / 400 Balance 2682 / 2682 6447 / 6447 -400 / -400 Weight (kg) 59 kg 61.5 kg 63 kg Objective General Appearance: positive No acute distress and Alert; negative Anxious Eyes Bilateral: positive Normal inspection, PERRL and EOMI ENT: positive ENT inspection nml, Pharynx nml and No signs of dehydration Neck: positive Nml inspection, Thyroid nml and No JVD Respiratory: positive Chest non-tender, No respiratory distress and Breath sounds nml; negative Wheezes, Rales or Rhonchi Cardiovascular: positive No murmur, No gallop and Tachycardia; negative Systolic murmur Abdomen: positive Non-tender, No organomegaly and No distention; negative Guarding or Splenomegaly Back: positive Nml inspection; negative CVA tenderness (R) or CVA tenderness (L) Skin: positive Color nml, No rash, Warm and Dry Extremities: positive Other (LLE in cast; toes warm to touch, able to wiggle toes ) Neurologic/Psychiatric: positive Oriented x3, Motor nml and Mood/affect nml Lab Results 05/31/25 04:57 05/31/25 04:57 Other Labs: Lab Results x24hrs 05/31/25 05/30/25 05/30/25 Range/Units 04:57 20:36 16:56 WBC 7.4 (4.8-10.8) x10^3/uL RBC 3.03 L (4.20-5.40) 10^6/uL Hgb 9.3 L (12.0-16.0) g/dL Hct 28.4 L (37.0-47.0) % MCV 93.7 (81.0-99.0) fL MCH 30.7 (27.0-31.0) pg MCHC 32.7 (32.0-36.0) g/dL RDW 13.2 (12.0-15.0) % Plt Count 145 (130-450) 10^3/uL MPV 9.8 (7.9-10.8) fL Neut # (Auto) 5.5 (1.5-6.6) 10^3/uL Lymph # (Auto) 1.4 L (1.5-3.5) 10^3/uL [place] # (Auto) 0.5 (0.0-1.0) 10^3/uL Eos # (Auto) 0.0 (0.0-0.7) 10^3/uL Baso # (Auto) 0.0 (0.0-0.1) 10^3/uL Absolute Nucleated RBC 0.00 x10^3/uL Nucleated RBC % 0.0 /100WBC VBG pH 7.452 H (7.31-7.41) Ionized Calcium 1.16 (1.09-1.30) mmol/L Sodium 141 (135-145) mmol/L Potassium 3.7 (3.5-4.5) mmol/L Chloride 115 H (101-111) mmol/L Carbon Dioxide 21 (21-32) mmol/L Anion Gap 5.0 L (6-13) BUN 20 (6-20) mg/dL Creatinine 1.1 (0.6-1.3) mg/dL Estimated GFR (MDRD) 49 L (>89) Glucose 214 H (74-104) mg/dL POC Whole Bld Glucose 260 237 (70-100) mg/dL Calcium 7.6 L (8.5-10.3) mg/dL Phosphorus 2.1 L (2.5-5.0) mg/dL Magnesium 2.0 (1.7-2.3) mg/dL 05/30/25 Range/Units 11:16 WBC (4.8-10.8) x10^3/uL RBC (4.20-5.40) 10^6/uL Hgb (12.0-16.0) g/dL Hct (37.0-47.0) % MCV (81.0-99.0) fL MCH (27.0-31.0) pg MCHC (32.0-36.0) g/dL RDW (12.0-15.0) % Plt Count (130-450) 10^3/uL MPV (7.9-10.8) fL Neut # (Auto) (1.5-6.6) 10^3/uL Lymph # (Auto) (1.5-3.5) 10^3/uL [place] # (Auto) (0.0-1.0) 10^3/uL Eos # (Auto) (0.0-0.7) 10^3/uL Baso # (Auto) (0.0-0.1) 10^3/uL Absolute Nucleated RBC x10^3/uL Nucleated RBC % /100WBC VBG pH (7.31-7.41) Ionized Calcium (1.09-1.30) mmol/L Sodium (135-145) mmol/L Potassium (3.5-4.5) mmol/L Chloride (101-111) mmol/L Carbon Dioxide (21-32) mmol/L Anion Gap (6-13) BUN (6-20) mg/dL Creatinine (0.6-1.3) mg/dL Estimated GFR (MDRD) (>89) Glucose (74-104) mg/dL POC Whole Bld Glucose 152 (70-100) mg/dL Calcium (8.5-10.3) mg/dL Phosphorus (2.5-5.0) mg/dL Magnesium (1.7-2.3) mg/dL Assessment/Plan Problem List (1) Fracture of tibia and fibula: Impression: Patient had mechanical fall. CT shows comminuted, mildly displaced oblique fracture of the distal tibial diaphysis. Nondisplaced oblique fracture of the distal fibula extending across the level of the syndesmosis and into the ankle mortise. Comminuted and mildly displaced fracture of the fibular head. Orthopedic surgery consulted - plan for ORIF today. Physical therapy consulted. Qualifiers: Encounter type: initial encounter Fracture type: closed Laterality: l eft Qualified Code(s): S82.202A - Unspecified fracture of shaft of left tibia, initial encounter for closed fracture; S82.402A - Unspecified fracture of shaft of left fibula, initial encounter for closed fracture (2) Hyperosmolar hyperglycemic state (HHS): Impression: Resolved. Patient presented with glucose of 796, high anion gap metabolic acidosis, urine with ketones. Now resolved. Off insulin drip, completed DKA protocol/pathway. On sliding scale insulin. Likely mixed picture of HHS and DKA. May have been triggered by recent fall and fracture. Patient admits she does not recall when she last took her insulin. Typically takes 12 units of long-acting at night, and then a sliding scale depending on her carbohydrate levels. She was diagnosed with type 1 diabetes in her 30s. Does not see endocrinology, does not use an insulin pump or glucose monitor. Continue 12 units at night (home dose), and then low-dose sliding scale. Uptitrate as able. (3) Encephalopathy: Impression: Attributed to metabolic changes as above. Now resolved. Patient at baseline. Qualifiers: Encephalopathy type: unspecified encephalopathy Qualified Code(s): G 93.40 - Encephalopathy, unspecified (4) Diabetes type 1: Impression: Typically takes 12 units of long-acting at night, and then a sliding scale depending on her carbohydrate levels. She was diagnosed with type 1 diabetes in her 30s. Does not see endocrinology, does not use an insulin pump or glucose monitor. Has PCP appointment in September 2025. Qualifiers: Diabetes mellitus complication status: without complication Qualified Code(s): E10.9 - Type 1 diabetes mellitus without complications (5) Leukocytosis: Impression: Resolved. Patient presented with leukocytosis. Afebrile. No clinical signs or symptoms of infectionno cough, fevers, chills, abdominal pain, urinary symptoms. Rust catheter was placed for close monitoring of urine output yesterday, to be removed today. Continue to monitor off antibiotics. (6) Acute kidney injury: Impression: Resolved with IV and oral hydration. Continue to trend creatinine. (7) Alcohol use: Impression: Per previous hospitalist who spoke with the family, they are uncertain about her drinking history. She has intermittent episodes of drinking alcohol, but does have some binge drinking. No signs of alcohol withdrawal at this time.
[2025-05-31] MEDS ORDERED: BUPIVACAINE 0.25% PF 30 ML VIAL ONE (12:12)
[2025-05-31] MEDS ORDERED: ROPIVACAINE 0.2% PF 20ML VIAL ONE (13:04)
[2025-05-31] MEDS ORDERED: fentaNYL 100 MCG/2 ML VIAL ONE ×2 (13:06→14:27)
[2025-05-31] MEDS ORDERED: PROPOFOL 200 MG/20 ML VIAL IVP ONE (13:06)
[2025-05-31] MEDS ORDERED: MIDAZOLAM 2 MG/2 ML VIAL ONE (13:06)
[2025-05-31] MEDS ORDERED: DEXAMETHASONE 4 MG/ML VIAL ONE ×2 (13:22→14:08)
--- NOTE | 2025-05-31 13:28 | Preop H&P Attestation ---
Preop H&P Attestation H & P: 05/31/25 1328 I Jim Galo DO, confirm that the History & Physical was finalized within the past 30 days.Today, 05/31/25, I conducted a review of the H&P and performed an examination of the patient. H & P Last 30 Days: History & Physical 05/29/25, 18:53 H&P was documented and completed within 30 days - no change: Yes
--- NOTE | 2025-05-31 13:42 | ANESTHESIA PROCEDURE NOTE ---
Pre-Anesthesia VS, & Labs Diagnosis Surgical Diagnosis:: Left tibial fracture Procedure Procedure: ORIF left tibial fracture Vitals Vital Signs: Temp Pulse Resp BP Pulse Ox O2 Flow Rate 36.8 C 103 H 16 122/68 98 4 05/31/25 08:15 05/31/25 13:28 05/31/25 13:28 05/31/25 13:28 05/31/25 13:28 05/31/25 13:28 NPO NPO: >8 hours Is Patient ?: Not Applicable Lab Results Current Lab Results: Laboratory Tests 05/31/25 11:48: POC Whole Bld Glucose 133 05/31/25 04:57: WBC 7.4, RBC 3.03 L, Hgb 9.3 L, Hct 28.4 L, MCV 93.7, MCH 30.7, MCHC 32.7, RDW 13.2, Plt Count 145, MPV 9.8, Neut # (Auto) 5.5, Lymph # (Auto) 1.4 L, Leon # (Auto) 0.5, Eos # (Auto) 0.0, Baso # (Auto) 0.0, Absolute Nucleated RBC 0.00, Nucleated RBC % 0.0, VBG pH 7.452 H, Ionized Calcium 1.16, Sodium 141, Potassium 3.7, Chloride 115 H, Carbon Dioxide 21, Anion Gap 5.0 L, BUN 20, Creatinine 1.1, Estimated GFR (MDRD) 49 L, Glucose 214 H, Calcium 7.6 L, Phosphorus 2.1 L, Magnesium 2.0 05/30/25 20:36: POC Whole Bld Glucose 260 05/30/25 16:56: POC Whole Bld Glucose 237 05/30/25 11:16: POC Whole Bld Glucose 152 05/30/25 08:59: POC Whole Bld Glucose 75 05/30/25 07:55: Sodium 144, Potassium 4.0, Chloride 118 H, Carbon Dioxide 21, A nion Gap 5.0 L, BUN 28 H, Creatinine 1.3, Estimated GFR (MDRD) 40 L, Glucose 78, Calcium 7.5 L, Phosphorus 2.3 L 05/30/25 07:54: POC Whole Bld Glucose 72 05/30/25 06:57: POC Whole Bld Glucose 91 05/30/25 05:55: POC Whole Bld Glucose 115 12/03/25 04:57: POC Whole Bld Glucose 124 05/30/25 04:28: WBC 16.7 H, RBC 3.34 L, Hgb 10.1 L, Hct 32.2 L, MCV 96.4, MCH 30.2, MCHC 31.4 L, RDW 12.9, Plt Count 250, MPV 10.1, Neut # (Auto) Not Reportable, Lymph # (Auto) Not Reportable, Leon # (Auto) Not Reportable, Eos # (Auto) Not Reportable, Baso # (Auto) Not Reportable, Absolute Nucleated RBC Not Reportable, Total Counted 100, Band Neuts % (Manual) 3, Abnorm Lymph % (Manual) 0, Nucleated RBC % Not Reportable, Neutrophils # (Manual) 14.4 H, Lymphocytes # (Manual) 1.3 L, Monocytes # (Manual) 1.0, Eosinophils # (Manual) 0.0, Basophils # (Manual) 0.0, Differential Comment MANUAL DIFFERENTIAL, WBC Morphology NORMAL APPEARANCE, Platelet Estimate NORMAL (130-450,000), Platelet Morphology NORMAL APPEARANCE, RBC Morph Micro Appear NORMAL APPEARANCE, VBG pH 7.294 L, Ionized Calcium 1.09, Sodium 144, Potassium 3.7, Chloride 115 H, Carbon Dioxide 20 L, Anion Gap 9.0, BUN 31 H, Creatinine 1.4 H, Estimated GFR (MDRD) 37 L, Glucose 158 H, Lactic Acid 2.6 H, Calcium 7.3 L, Phosphorus 2.3 L, Magnesium 1.9 05/30/25 04:00: POC Whole Bld Glucose 135 05/30/25 03:01: POC Whole Bld Glucose 148 05/30/25 01:58: POC Whole Bld Glucose 206 05/30/25 01:00: POC Whole Bld Glucose 280 05/30/25 00:01: Sodium 143, Potassium 3.9, Chloride 115 H, Carbon Dioxide 21, Anion Gap 7.0, BUN 35 H, Creatinine 1.6 H, Estimated GFR (MDRD) 32 L, Glucose 330 H, POC Whole Bld Glucose 302, Lactic Acid 1.8, Calcium 7.4 L 05/29/25 22:57: POC Whole Bld Glucose 338 05/29/25 22:11: Glucose 428 H 05/29/25 21:20: Bld Gas Analysis Time 2125, Sample Site RIGHT RADIAL, ABG pH 7.22 L, ABG pCO2 27 L, ABG pO2 90, ABG HCO3 10.9 L, ABG Total CO2 11.7 L*, ABG O2 Saturation 98, ABG Base Excess -17.0 L, Isaac Test POSITIVE, O2 Delivery Device NO DEVICE/ROOM AIR, FiO2 21.00 05/29/25 20:53: Glucose 522 H* 05/29/25 19:27: Sodium 136, Potassium 5.1 H, Chloride 100 L, Carbon Dioxide 10 L*, Anion Gap 26.0 H, BUN 40 H, Creatinine 1.8 H, Estimated GFR (MDRD) 28 L, G lucose 756 H*, Calcium 8.4 L 05/29/25 19:19: Lactic Acid 6.7 H* 05/29/25 19:02: POC Whole Bld Glucose > 600 05/29/25 18:55: WBC 18.2 H, RBC 3.69 L, Hgb 11.1 L, Hct 36.0 L, MCV 97.6, MCH 30.1, MCHC 30.8 L, RDW 12.9, Plt Count 343, MPV 10.5, Neut # (Auto) Not Reportable, Lymph # (Auto) Not Reportable, Leon # (Auto) Not Reportable, Eos # (Auto) Not Reportable, Baso # (Auto) Not Reportable, Absolute Nucleated RBC Not Reportable, Total Counted 100, Band Neuts % (Manual) 2, Abnorm Lymph % (Manual) 0, Metamyelocytes % 4 H, Nucleated RBC % Not Reportable, Neutrophils # (Manual) 15.3 H, Lymphocytes # (Manual) 0.7 L, Monocytes # (Manual) 1.5 H, Eosinophils # (Manual) 0.0, Basophils # (Manual) 0.0, Differential Comment MANUAL DIFFERENTIAL, Manual Slide Review Indicated, WBC Morphology 1+ VACUOLATION, Platelet Estimate NORMAL (130-450,000), Platelet Morphology NORMAL APPEARANCE, RBC Morph Micro Appear NORMAL APPEARANCE, Sodium Cancelled, Potassium Cancelled, Chloride Cancelled, Carbon Dioxide Cancelled, Anion Gap Cancelled, BUN Cancelled, Creatinine Cancelled, Estimated GFR (MDRD) Cancelled, Glucose Cancelled, Calcium Cancelled, Total Bilirubin Cancelled, AST Cancelled, ALT Cancelled, Alkaline Phosphatase Cancelled, Total Protein Cancelled, Albumin Cancelled, Globulin Cancelled, Albumin/Globulin Ratio Cancelled, Lipase Cancelled, Serum Ketones Cancelled 05/29/25 18:28: Urine Opiates Screen POSITIVE H, Ur Buprenorphine Scrn NEGATIVE, Ur Oxycodone Screen POSITIVE H, Urine Methadone Screen NEGATIVE, Urine Fentanyl Screen Negative, Ur Barbiturates Screen NEGATIVE, Ur Tricyclics Screen NEGATIVE, Ur Phencyclidine Scrn NEGATIVE, Ur Amphetamine Screen NEGATIVE, U Methamphetamines Scrn NEGATIVE, U Benzodiazepines Scrn NEGATIVE, Urine Cocaine Screen NEGATIVE, U Cannabinoids Screen NEGATIVE, Ur Drug Screen Comment CUTOFF CONC BELOW: 05/29/25 18:22: VBG pH 7.068 L*, VBG pCO2 34.9 L, VBG pO2 80.1 H, VBG HCO3 10.2 L, VBG Total CO2 11.2 L, VBG O2 Saturation 91.0 H, VBG Base Excess -20.2 L 05/29/25 17:40: WBC 19.0 H, RBC 4.14 L, Hgb 12.6, Hct 40.1, MCV 96.9, MCH 30.4, MCHC 31.4 L, RDW 12.7, Plt Count 408, MPV 10.3, Neut # (Auto) 16.3 H, Lymph # (Auto) 0.7 L, Leon # (Auto) 1.7 H, Eos # (Auto) 0.0, Baso # (Auto) 0.1, Absolute Nucleated RBC 0.00, Band Neuts % (Manual) Not Reportable, Abnorm Lymph % (Manual) Not Reportable, Nucleated RBC % 0.0, Neutrophils # (Manual) Not Reportable, Lymphocytes # (Manual) Not Reportable, Monocytes # (Manual) Not Reportable, Eosinophils # (Manual) Not Reportable, Basophils # (Manual) Not Reportable, Differential Comment MANUAL=AUTO DIFF, Manual Slide Review Indicated, WBC Morphology NORMAL APPEARANCE, Platelet Estimate NORMAL (130- 450,000), Platelet Morphology NORMAL APPEARANCE, RBC Morph Micro Appear NORMAL APPEARANCE, Sodium 133 L, Potassium 5.9 H, Chloride 90 L, Carbon Dioxide 16 L, A nion Gap 27.0 H, BUN 41 H, Creatinine 1.9 H, Estimated GFR (MDRD) 26 L, Glucose 796 H*, Calcium 9.5, Total Bilirubin 0.8, AST 18, ALT 16, Alkaline Phosphatase 91, Total Protein 7.3, Albumin 4.5, Globulin 2.8, Albumin/Globulin Ratio 1.6, Ethyl Alcohol < 10.0, Serum Ketones SMALL H 05/29/25 17:31: POC Whole Bld Glucose > 600 Lab results reviewed: Yes 05/31/25 04:57 05/31/25 04:57 Meds/Allgy Home Medications Ambulatory Orders Medication Instructions Recorded Confirmed blood sugar diagnostic #100 ea 09/25/24 05/29/25 blood-glucose sensor (Dexcom G7 #3 ea 09/25/24 5 Sensor device) blood-glucose,milk receiver,cont #1 ea 09/25/24 05/29/25 (Dexcom G7 Portable Sawmill Operator) insulin aspart U-100 100 unit/mL See Rx Instructions s ubcut .before 12/26/24 05/30/25 (3 mL) subcutaneous pen (Novolog meals #15 mL FlexPen U-100 Insulin aspart) pen needle, diabetic 32 gauge x #100 ea 01/01/2505/29 5/16" (Comfort EZ Pen [place]) oxycodone-acetaminophen 5 mg-325 1 - 2 tab PO Q4H #30 tabs 05/29/25 05/30/25 mg tablet insulin glargine 100 unit/mL (3 12 - 14 unit subcut DA SHAMAR 05/30/25 05/30/25 mL) subcutaneous pen (Lantus Solostar U-100 Insulin) multivitamin 1 tab PO DAILY 05/30/25 12/09/19 Allergies Allergies Allergy/AdvReac Type Severity Reaction Status Date / Time No Known Drug Allergies Allergy Verified 05/29/25 17:28 PFSH Active Problems All Active Problems (Updated 05/30/25 @ 14:08 by Chelsey Mcmanus MD) Acute kidney injury (Acute) Leukocytosis (Acute) Metabolic acidosis due to diabetes mellitus (Acute) Hyperosmolar hyperglycemic state (HHS) (Acute) Encephalopathy (Acute) DKA, type 1 (Acute) Type 2 diabetes mellitus with hyperosmolar hyperglycemic state (HHS) (Acute) Tachycardia (Acute) Hypotension (Acute) Closed head injury (Acute) Fracture of tibia and fibula (Acute) History of shoulder fracture (Acute) Diabetes type 1 (Acute) Special screening for osteoporosis (Acute) Actinic keratosis (Acute) Aftercare for healing pathologic fracture of lower extremity (Acute) Menopausal state (Acute) Other screening mammogram (Acute) Hyperlipidemia (Acute) High risk medication use (Acute) Health care maintenance (Acute) Fatigue (Acute) Encounter for screening for other disorder (Acute) Closed fracture of left proximal humerus (Acute) Degenerative joint disease of knee, right (Acute) Osteoporosis (Chronic) Lumbar strain (Chronic) Alcohol use (Chronic) Full code status (Chronic) Fall (Acute) Diabetes type 1, controlled (Acute) Patellar fracture (Acute) Surgical History Surgical History (Updated 05/31/25 @ 13:40 by Lynda Bennett CRNA) History of knee surgery History of thyroidectomy History of Family History Family History Father Diabetes Social History Social History (Updated 05/30/25 @ 13:13 by Stacie Winter PA-C) Smoking Status: Former smoker Second hand tobacco smoke exposure: No Do you dip or chew tobacco?: No Do you vape?: No Patient requests smoking cessation consult: No Initiate information on smoking cessation: No Living arrangement: At home Marital Status: Living Condition: With spouse/s.o. Level: Independent Do you feel safe in your home environment?: Yes History of physical, verbal, emotional, or financial abuse?: No ETOH Use: Wine Frequency: Daily Substance Use: denies use Are you sexually active?: Yes Retired: Yes Service: No Are you following a diet prescribed by a doctor: No Are you following a special diet: No POLST Patient has POLST: No Anesthesia Exam (Expanded) Exam General: Alert, Oriented x3 and Cooperative Dental: WNL Mouth Openin Fingerbreadth Neck Mobility: Normal Mallampati classification: II Thyromental Distance: 4-6 cm Exam Exam Vital Signs: Vital Signs x48h Temp Pulse Resp BP Pulse Ox O2 Flow Rate 05/31/25 13:28 103 H 16 122/68 98 4 05/31/25 08:15 36.8 C 87 18 122/83 94 Plan Plan Anesthesia Type: General and Adductor Block (left) Consent for Procedure(s) Verified and Reviewed: Yes Code Status: Attempt Resuscitation ASA Classification ASA classification: 3-Severe systemic disease Is this case an emergency?: No
[2025-05-31] MEDS ORDERED: ONDANSETRON 4 MG/2 ML VIAL ONE (14:08)
[2025-05-31] MEDS: LACTATED RINGERS 1,000 ML IV SCH (14:55)
[2025-05-31] MEDS ORDERED: MORPHINE 2 MG/ML CARPUJECT IVP PRN (15:11)
[2025-05-31] MEDS ORDERED: IPRATROPIUM/ALBUTEROL 3 ML NEB INH PRN (15:11)
[2025-05-31] MEDS ORDERED: fentaNYL 100 MCG/2 ML VIAL IVP PRN (15:11)
[2025-05-31] MEDS ORDERED: METOCLOPRAMIDE 10 MG/2 ML VIAL IVP PRN (15:11)
[2025-05-31] MEDS ORDERED: NALOXONE 0.4 MG/ML VIAL IVP PRN (15:11)
[2025-05-31] MEDS ORDERED: ATROPINE ABBOJECT 1 MG/10 ML SYRINGE IVP PRN (15:11)
[2025-05-31] MEDS ORDERED: ePHEDrine 50 MG/ML VIAL IVP PRN (15:11)
[2025-05-31] MEDS ORDERED: ONDANSETRON 4 MG/2 ML VIAL IVP PRN (15:11)
[2025-05-31] MEDS ORDERED: HYDROmorphone 0.5 MG/0.5 ML SYRINGE ONE (15:28)
[2025-05-31] MEDS: HYDROmorphone 0.5 MG/0.5 ML SYRINGE IVP PRN (15:29)
[2025-05-31] MEDS: ACETAMINOPHEN 325 MG TABLET PO PRN (16:38)
--- NOTE | 2025-05-31 17:10 | XRAY Report ---
INDICATIONS: LEFT ANKLE ORIF TECHNIQUE: Interoperative fluoroscopic support COMPARISON: None. FINDINGS: Intraoperative fluoroscopic images shows internal fixation of distal tibial shaft with surgical plate and multiple surgical screws in place. Total fluoroscopy time is 0.1-minute. IMPRESSION: Fluoroscopy guidance was provided intraoperatively for ORIF of distal tibial shaft performed by ordering position.. Please see operative report for further details Reviewed by: Gideon Joseph MD on 05/31/2025 5:06 PM PST Approved by: Gideon Joseph MD on 05/31/2025 5:06 PM PST Station ID: [id number]
--- NOTE | 2025-05-31 19:35 | ANESTHESIA POST OP EVALUATION ---
Anesthesia Post Eval Post Anesthesia Eval Vitals: Last Vital Signs Temp 36.7 C 05/31/25 16:30 Pulse 67 05/31/25 18:29 Resp 20 05/31/25 18:29 BP 146/76 H 05/31/25 18:29 Pulse Ox 96 05/31/25 18:29 O2 Flow Rate 1 05/31/25 18:29 CV Function Including HR & BP: Stable Pain Control: Satisfactory Nausea & Vomiting: Negative Mental Status: Baseline Respiratory Status: Airway Patent Hydration Status: Satisfactory Anesthesia Complications: None
[2025-06-01] MEDS: CHOLECALCIFEROL 25 MCG TABLET PO SCH (10:11)
[2025-06-01] MEDS: CALCIUM CARBONATE CHEW 500 MG TABLET PO SCH (10:12)
[2025-06-01 10:39] LABS: HCT - HEMATOCRIT 33.3 % (37.0-47.0); HGB - HEMOGLOBIN 10.6 g/dL (12.0-16.0); MEAN PLATELET VOLUME 10.5 fL (7.9-10.8); PLT - PLATELET COUNT 145.0 10^3/uL (130-450); RED CELL DISTRIBUTION WIDTH 12.6 % (12.0-15.0)
[2025-06-01 11:46] LABS: BUN - BLOOD UREA NITROGEN 19.0 mg/dL (6-20); CARBON DIOXIDE - CO2 25.0 mmol/L (21-32); CREATININE 1.0 mg/dL (0.6-1.3); GFR - MDRD 54.0 (>89)
[2025-06-01 11:52] LABS: ESTIMATED AVERAGE GLUCOSE 180 mg/dL (70-100); HEMOGLOBIN A1c% 7.9 % (4.27-6.07)
--- NOTE | 2025-06-01 12:22 | Discharge Summary ---
Discharge Summary Admit Date: 05/29/25 Discharge Date: 06/03/25 Discharging Provider: Dr. Chelsey Mcmanus Primary Care Provider: Dr. Enamorado Code Status: Attempt Resuscitation Discharge Facility Name: Home, outpatient PT DIAGNOSES Discharge Diagnoses with Status of Each Condition: Fracture of tibia and fibulapatient had a fall and CT showed mildly displaced, comminuted oblique fracture of the distal tibial diaphysis. Orthopedic surgery completed ORIF on 06/01. Initially physical therapy had recommended SNF, but patient improved while here, and repeat PT evaluation determined she was a good candidate for home and outpatient physical therapy. She will be continued on aspirin 3 and 25 mg twice a day until follow-up with orthopedic surgery, and she was advised to follow-up with them in the next 10 days. HHSresolved. Encephalopathyresolved. There is some concern that her passing out was a syncopal event and not related to the HHS, and may have happened prior to the onset of the HHS. Telemetry while here has been largely unremarkable. CT head was negative. May need cardiac event monitoring, and outpatient cardiology follow up. Type 1 diabetes mellituscontinue 12 units long-acting at night, as well as sliding scale insulin. Leukocytisusresolved. Acute kidney injuryresolved. Alcohol use Per previous hospitalist who spoke with the family, they are uncertain about her drinking history. She has intermittent episodes of drinking alcohol, but does have some binge drinking. No signs of alcohol withdrawal at this time. HPI History of Present Illness: Per Dr. Miguel Andujar: This is a 75-year-old female with a past medical history of diabetes, alcohol use, actinic keratosis, hyperlipidemia, and osteoporosis who was admitted with concern for DKA. Her outpatient records indicate that she has type 1 diabetes. She was last seen by Anay Lugo in August. She was in diabetes control trial at the for almost 20 years. Her home insulin regimen is reportedly 14 units glargine SQ daily, 2 to 6 units aspart SQ AC Patient was brought in by EMS last night to the ED for for a ground-level fall resulting in head injury and left lower leg pain. Found to have a distal tib- fib fracture last night. She apparently has a history of recurrent falls at home. She felt a pop in her leg when she went down. After extensive evaluation in the ED, she was sent home. Ortho had recommended splinting, keeping nonweightbearing, and having patient follow-up outpatient. She was discharged with [place]. She took 1 of those prior to her visit today at the walk-in clinic. She went to the walk-in today for referral to orthopedics. At the urgent care, her BP was 87/53 down from 120/66 in the ED the night prior. Her heart rate was up to 128. She was satting fine on room air. Afebrile. Given her unstable vital signs, she was recommended to come to the ED. In the ED she was found to have an elevated blood glucose, ultimately resulting at 796 on chemistries. Her creatinine is 1.9. CO2 16. Anion gap was 27. Potassium 5.9. Finally her WBC was 19. She does not have any transaminase elevation. Patient reportedly has a full code POLST. I do not see it on file. CONSULTS | PROCEDURES Procedures: ORIF on 06/[address] Lower extremity CT Comminuted, mildly displaced oblique fracture of the distal tibial diaphysis. Nondisplaced oblique fracture of the distal fibula extending across the level of the syndesmosis and into the ankle mortise. Comminuted and mildly displaced fracture of the fibular head. Small linear lucency at the anterior articular surface of the distal tibia at the tibiotalar joint, may reflect additional intra-articular fracture line. Small tibiotalar joint effusion. Tibia/fibula x-ray Comminuted, displaced distal tibial diaphyseal fracture. Possible fracture line extension to the medial malleolus. Comminuted, displaced and minimally impacted fracture of the fibular head. Suspected minimally displaced distal fibular fracture. HOSPITAL COURSE Hospital Course: Patient is a 75-year-old female with a history of type 1 diabetes mellitus who presented due to altered mentation. She was found to be in DKA. She received IV fluids, insulin drip, and this resolved overnight. Prior to her admission, she did have a mechanical fall versus syncope which resulted in a mildly displaced oblique fracture of the distal tibial diaphysis. After discussion with orthopedic surgery about whether to manage this nonoperatively or complete an overwrap, she decided to move forward with an ORIF which was completed here. Initially, SNF was recommended by physical therapy. She was medically cleared, and waiting for placement, and repeat evaluation was ordered due to patient's continued improvement. On repeat evaluation, it was determined that she would be suitable for home with outpatient physical therapy. Unclear if her episode of passing out was related to her DKA. CT head was negative, cardiac telemetry was within normal limits. She may need an outpatient monitoring analyst for further evaluation of this. She was discharged in stable condition and advised to follow-up closely with PCP and orthopedic surgery. ALLERGIES Allergies Allergy/AdvReac Type Severity Reaction Status Date / Time No Known Drug Allergies Allergy Verified 05/29/25 17:28 MEDICATIONS Ambulatory Orders Medication Instructions Recorded Confirmed blood sugar diagnostic #100 ea 09/25/24 05/29/25 blood-glucose sensor (Dexcom G7 #3 ea 09/25/24 5 Sensor device) blood-glucose,dyer helper,cont #1 ea 09/25/24 05/29/25 (Dexcom G7 Wardrobe Stylist) insulin aspart U-100 100 unit/mL See Rx Instructions s ubcut .before 12/26/24 05/30/25 (3 mL) subcutaneous pen (Novolog meals #15 mL FlexPen U-100 Insulin aspart) pen needle, diabetic 32 gauge x #100 ea 01/01/2505/29 5/16" (Comfort EZ Pen [place]) oxycodone-acetaminophen 5 mg-325 1 - 2 tab PO Q4H #30 tabs 05/29/25 05/30/25 mg tablet insulin glargine 100 unit/mL (3 12 - 14 unit subcut DA SHAMAR 05/30/25 05/30/25 mL) subcutaneous pen (Lantus Solostar U-100 Insulin) multivitamin 1 tab PO DAILY 05/30/25 1209/19 aspirin 325 mg tablet 325 mg PO BID 14 days #28 ta bs 06/03/25 calcium carbonate 500 mg (2.5 x 200 mg calcium (500 06/03/25 mg)) PO BID #30 tabs cholecalciferol (vitamin D3) 25 50 mcg (2 x 25 mcg (1, 000 unit)) 06/03/25 mcg (1,000 unit) tablet PO DAILY #30 tabs PHYSICAL EXAM AT DISCHARGE Vital Signs: Vital Signs x48h Temp Pulse Resp BP Pulse Ox 06/03/25 13:57 98.1 F 72 16 140/79 H 98 06/03/25 13:00 98.2 F 78 18 154/96 H 97 06/03/25 08:07 97.9 F 106 H 17 140/80 H 95 General Appearance: positive No acute distress and Alert; negative Anxious Eyes Bilateral: positive Normal inspection, PERRL and EOMI ENT: positive ENT inspection nml, Pharynx nml and No signs of dehydration Neck: positive Nml inspection, Thyroid nml and No JVD Respiratory: positive Chest non-tender, No respiratory distress and Breath sounds nml; negative Wheezes, Rales or Rhonchi Cardiovascular: positive No murmur, No gallop and Tachycardia; negative Systolic murmur Abdomen: positive Non-tender, No organomegaly and No distention; negative Guarding or Splenomegaly Back: positive Nml inspection; negative CVA tenderness (R) or CVA tenderness (L) Skin: positive Color nml, No rash, Warm and Dry Extremities: positive Other (LLE in cast; toes warm to touch, able to wiggle toes ) Neurologic/Psychiatric: positive Oriented x3, Motor nml and Mood/affect nml LABS 06/01/25 10:32 06/01/25 10:32 DIAGNOSTIC IMAGING Diagnostic Imaging Results: Final report reviewed FOLLOW UP Follow Up: Follow up PCP. Follow up cardiology. Follow up orthopedic surgery. TIME SPENT Time Spent in Discharge (Minutes): 35 Discharge Plan Discharge Patient Disposition: Home, Self Care Prescriptions: New calcium carbonate 200 mg calcium (500 mg) Tablet,Chewable 500 mg PO BID Qty: 30 0RF cholecalciferol (vitamin D3) 25 mcg (1,000 unit) Tablet 50 mcg PO DAILY Qty: 30 0RF aspirin 325 mg tablet 325 mg PO BID 14 Days Qty: 28 0RF Continued (DME) pen needle, diabetic [Comfort EZ Pen [place]] 32 gauge x 5/16" needle See Rx Instructions .Route Qty: 100 2RF Rx Instructions: As directed oxycodone-acetaminophen 5-325 mg tablet 1 - 2 tab PO Q4H Qty: 30 0RF multivitamin Tablet 1 tab PO DAILY insulin glargine [Lantus Solostar U-100 Insulin] 100 unit/mL (3 mL) insulin pen 12 - 14 unit subcut DAILY (DME) Dexcom G7 Wardrobe Stylist Misc See Rx Instructions .Route Qty: 1 0RF Rx Instructions: As directed (DME) Dexcom G7 Sensor Device See Rx Instructions .Route Qty: 3 3RF Rx Instructions: As directed (DME) blood sugar diagnostic Strip See Rx Instructions .Route Qty: 100 3RF Rx Instructions: As directed insulin aspart U-100 [Novolog FlexPen U-100 Insulin] 100 unit/mL (3 mL) insulin pen See Rx Instructions subcut .before meals Qty: 15 2RF Rx Instructions: Admin 2 to 6 unit BEFORE MEALS; Diet: Regular Health Concerns: You have had surgery to repair a broken bone in your left lower leg (tibia). Metal plates and screws were used to hold the bone pieces in the correct position while they heal. Weight-Bearing and Walking - You are non weight bearing of your left leg. - Use crutches or a walker as needed for balance and comfort. Exercises and Movement Start these exercises as soon as possible to prevent stiffness: - Move your toes up and down several times per hour. - Move your ankle up and down and in circles within your comfort level. - Bend and straighten your knee gently as much as you can tolerate. These exercises help reduce swelling, prevent blood clots, and maintain joint flexibility. Wound Care - Keep your surgical incision clean and dry. - Do not remove the dressing unless instructed by your surgeon. - Watch for signs of infection: increasing redness, warmth, swelling, drainage, or foul odor from the wound. - If you notice any of these signs, contact your surgeon immediately. Pain Management - Take pain medications as prescribed. - Apply ice to the surgical area for 20 minutes at a time, several times per day, to reduce swelling and pain. - Elevate your leg above the level of your heart when sitting or lying down. Activity Restrictions - Avoid getting the surgical site wet until cleared by your surgeon (no swimming, baths, or soaking). - Do not drive until cleared by your surgeon and off narcotic pain medications. - Gradually increase your activity level as tolerated. Follow-Up Care - Attend all scheduled follow-up appointments. - X-rays will be taken at your follow-up visits to monitor bone healing. - Full healing typically takes 3-6 months, though this varies by individual. Contact your surgeon or go to the emergency department if you experience: - Severe pain not controlled by medication - Signs of infection (fever, chills, increasing wound redness or drainage) - Numbness or tingling in your foot or toes - Severe swelling or tightness in your leg - Inability to move your toes - Chest pain or difficulty breathing (possible blood clot) Medications Continue taking all prescribed medications, including: - Pain medications as directed - Blood thinner medication (if prescribed) to prevent blood clots - you will be discharged on aspirin 325 mg twice daily. Please stop at discretion of your orthopedic surgeon. Additional Information - Most patients return to normal activities within 4-6 months after surgery. - Physical therapy may be recommended to help restore strength and function. - Do not smoke, as smoking significantly delays bone healing. Our social work team is working on getting you a PCP appointment sooner. You need to see them to get an outpatient physical therapy referral. If you do not hear from them in the next few days, please call the office directly to follow- up yourself. You should also follow-up with the orthopedic surgeon in the next 10 to 14 days. I have attached their information in your discharge paperwork. The stress of the fracture probably led to your high sugars, and the diabetic ketoacidosis. Your sugars have been well-controlled on your current regimen while you have been here, please continue this in the outpatient. I understand that you are going to try to see our peer educator for a continuous glucose monitor. Thank you for allowing us to take care of you. We are glad you're doing so well! Print Language: Macedonian Patient Instructions: Surg Dc Stand Alone Forms: PCP List Follow-up Care: Rodolfo Enamorado MD [Primary Care Provider, Family Practice] Jim Galo DO [Provider Admit Priv/Credential, Orthopedics] - 06/13/25 Vitals documented within 30 minutes of discharge?: Yes
--- NOTE | 2025-06-01 16:26 | PT Plan of Care ---
PT Plan of Care Physical Therapy Plan of Care: Diagnosis Diagnosis L distal tib/fib fx Diagnosis s/p L tib/fib ORIF Referring Provider Stacie Dread Garcíasangita Patient Status Inpatient Chief Complaint Chief Complaint LLE pain, limited mobility Onset of Chief Complaint [employer] Surgical History (Updated 05/31/25 @ 13:40 by Lynda Bennett CRNA) History of knee surgery History of thyroidectomy History of Balance/ Functional Results Sitting Balance Good Standing Balance Fair Assessment Assessment Pt is a pleasant 75yo F referred for PT eval d/t GLF with L distal tibfib fx, now POD#1 s/p ORIF . LLE splinted and strict NWB per ortho. Cleared for eval by ortho and hospitalist. Head strike with fall but imaging negative for acute injury. Please see medical record for further hx. Upon PT eval, pt sitting in b/s chair, reports 5/10 pain but willing to participate. STS transfer from b/s chair with FWW and minAx1. Able to maintain NWB 100% of time and demonstrates 5' ambulation with FWW and hopping technique with minAx1. Able to transfer to/from bed to chair and chair to commode with nsg. Given above impairments and recent fall, pt is a high fall risk. She will benefit from continued skilled PT in effort to reduce fall risk, provide safe in home transfer education and further post-op education. When medically clear, PT rec dc to SNF for further rehab as pt's home has stairs and fall risk is high. Goals Improve bed mobility to: Modified Independent Improve supine to sit to: Modified Independent Improve sit to stand to: Contact Guard Improve pivot transfer ability Contact Guard to: Improve sit to supine to: Contact Guard Improve gait ability to: Min A Assistive Device Used: Front Wheeled Walker Other gait goal: NWB 100% of time PT Plan of Care Frequency 1-2x/day Duration Until discharge Discharge Recommendations Discharge Location Long-Term Facility Transport Needs at Discharge Personal vehicle
--- NOTE | 2025-06-01 16:43 | PROVIDER PROGRESS NOTE ---
Subjective Subjective Subjective: This morning, patient states that she's feeling a lot better. She denies any fevers, chills, shortness of breath, nausea, episodes of emesis. She has some pain in the left leg, just with movement. Plan is to work with physical therapy today. She will likely need SNF/rehab. Current Medications Current Medications Current Medications: Current Medications Generic Name Dose Route Start Last Admin Trade Name Freq PRN Reason Stop Dose Admin Acetaminophen 650 mg 05/29/25 19:26 06/01/25 07:53 Acetaminophen 325 Mg Tablet PO 650 mg Q4HR PRN Administration Pain 1 to 4, or Fever Albuterol/Ipratropium 3 ml 05/31/25 15:11 Ipratropium/Albuterol 3 Ml Neb INH Q4HR PRN Wheezing Calcium Carbonate/Glycine 500 mg 06/01/25 10:00 06/01/25 10:12 Calcium Carbonate Chew 500 Mg Tablet PO 500 mg BID JASON Administration Cholecalciferol 50 mcg 06/01/25 10:00 06/01/25 10:11 Cholecalciferol 25 Mcg Tablet PO 50 mcg DAILY JASON Administration Insulin Glargine-yfgn 12 unit 05/30/25 21:00 05/31/25 20:40 Insulin Glargine-Yfgn 300 Unit/3 Ml Pen SUBQ 12 unit QPM JASON Administration Insulin Human Lispro 2 - 10 unit 06/01/25 17:00 Insulin Lispro 300 Unit/3 Ml Pen SUBQ 0800,1200,1700,2100 JASON Protocol Oxycodone HCl 5 mg 05/29/25 19:26 05/31/25 21:22 Oxycodone 5 Mg Tablet PO 5 mg Q4HR PRN Administration Pain 5 to 7 Sodium Chloride 10 ml 05/30/25 01:00 06/01/25 07:54 Sodium Chloride Flush 0.9% 10 Ml Syringe IVP 10 ml 0100,0900,1700 JASON Administration Sodium Chloride 10 ml 05/29/25 19:26 05/31/25 20:42 Sodium Chloride Flush 0.9% 10 Ml Syringe IVP 10 ml PRN PRN Administration NEEDED PER PROVIDER ORDERS Objective Vital Signs/Intake & Output Reviewed Vital Signs: Yes Vital Signs: Vital Signs x48h Temp Pulse Resp BP Pulse Ox 06/01/25 13:00 99.0 F 97 16 121/63 96 Intake & Output: Intake & Output 05/29/25 05/30/25 05/31/25 06/01/25 23:59 23:59 23:59 23:59 Intake Total 3167 / 3167 7012 / 7012 2090 / 2090 920 / 920 Output Total 485 / 485 565 / 565 700 / 700 550 / 550 Balance 2682 / 2682 6447 / 6447 1390 / 1390 370 / 370 Weight (kg) 59 kg 61.5 kg 63 kg Objective General Appearance: positive No acute distress and Alert; negative Anxious Eyes Bilateral: positive Normal inspection, PERRL and EOMI ENT: positive ENT inspection nml, Pharynx nml and No signs of dehydration Neck: positive Nml inspection, Thyroid nml and No JVD Respiratory: positive Chest non-tender, No respiratory distress and Breath sounds nml; negative Wheezes, Rales or Rhonchi Cardiovascular: positive No murmur, No gallop and Tachycardia; negative Systolic murmur Abdomen: positive Non-tender, No organomegaly and No distention; negative Guarding or Splenomegaly Back: positive Nml inspection; negative CVA tenderness (R) or CVA tenderness (L) Skin: positive Color nml, No rash, Warm and Dry Extremities: positive Other (LLE in cast; toes warm to touch, able to wiggle toes ) Neurologic/Psychiatric: positive Oriented x3, Motor nml and Mood/affect nml Lab Results 06/01/25 10:32 06/01/25 10:32 Other Labs: Lab Results x24hrs 06/01/25 06/01/25 06/01/25 Range/Units 11:40 10:32 07:39 WBC 7.2 (4.8-10.8) x10^3/uL RBC 3.45 L (4.20-5.40) 10^6/uL Hgb 10.6 L (12.0-16.0) g/dL Hct 33.3 L (37.0-47.0) % MCV 96.5 (81.0-99.0) fL MCH 30.7 (27.0-31.0) pg MCHC 31.8 L (32.0-36.0) g/dL RDW 12.6 (12.0-15.0) % Plt Count 145 (130-450) 10^3/uL MPV 10.5 (7.9-10.8) fL Sodium 141 (135-145) mmol/L Potassium 4.1 (3.5-4.5) mmol/L Chloride 108 (101-111) mmol/L Carbon Dioxide 25 (21-32) mmol/L Anion Gap 8.0 (6-13) BUN 19 (6-20) mg/dL Creatinine 1.0 (0.6-1.3) mg/dL Estimated GFR (MDRD) 54 L (>89) Glucose 275 H (74-104) mg/dL POC Whole Bld Glucose 245 237 (70-100) mg/dL Estimat Average Glucose 180 H (70-100) mg/dL Hemoglobin A1c % 7.9 H (4.27-6.07) % Calcium 8.6 (8.5-10.3) mg/dL 05/31/25 05/31/25 05/30/25 Range/Units 20:40 17:10 11:14 WBC (4.8-10.8) x10^3/uL RBC (4.20-5.40) 10^6/uL Hgb (12.0-16.0) g/dL Hct (37.0-47.0) % MCV (81.0-99.0) fL MCH (27.0-31.0) pg MCHC (32.0-36.0) g/dL RDW (12.0-15.0) % Plt Count (130-450) 10^3/uL MPV (7.9-10.8) fL Sodium (135-145) mmol/L Potassium (3.5-4.5) mmol/L Chloride (101-111) mmol/L Carbon Dioxide (21-32) mmol/L Anion Gap (6-13) BUN (6-20) mg/dL Creatinine (0.6-1.3) mg/dL Estimated GFR (MDRD) (>89) Glucose (74-104) mg/dL POC Whole Bld Glucose 188 173 15 (70-100) mg/dL Estimat Average Glucose (70-100) mg/dL Hemoglobin A1c % (4.27-6.07) % Calcium (8.5-10.3) mg/dL Assessment/Plan Problem List (1) Fracture of tibia and fibula: Impression: Patient had mechanical fall. CT shows comminuted, mildly displaced oblique fracture of the distal tibial diaphysis. Nondisplaced oblique fracture of the distal fibula extending across the level of the syndesmosis and into the ankle mortise. Comminuted and mildly displaced fracture of the fibular head. Orthopedic surgery consulted - completed ORIF 06/01. Physical therapy consulted, reccomend SNF. Patient medically cleared for discharge. Qualifiers: Encounter type: initial encounter Fracture type: closed Laterality: l eft Qualified Code(s): S82.202A - Unspecified fracture of shaft of left tibia, initial encounter for closed fracture; S82.402A - Unspecified fracture of shaft of left fibula, initial encounter for closed fracture (2) Hyperosmolar hyperglycemic state (HHS): Impression: Resolved. Patient presented with glucose of 796, high anion gap metabolic acidosis, urine with ketones. Now resolved. Off insulin drip, completed DKA protocol/pathway. On sliding scale insulin. Likely mixed picture of HHS and DKA. May have been triggered by recent fall and fracture. Patient admits she does not recall when she last took her insulin. Typically takes 12 units of long-acting at night, and then a sliding scale depending on her carbohydrate levels. She was diagnosed with type 1 diabetes in her 30s. Does not see endocrinology, does not use an insulin pump or glucose monitor. Continue 12 units at night (home dose), and then low-dose sliding scale. Uptitrate as able. (3) Encephalopathy: Impression: Attributed to metabolic changes as above. Now resolved. Patient at baseline. Qualifiers: Encephalopathy type: unspecified encephalopathy Qualified Code(s): G 93.40 - Encephalopathy, unspecified (4) Diabetes type 1: Impression: Typically takes 12 units of long-acting at night, and then a sliding scale depending on her carbohydrate levels. She was diagnosed with type 1 diabetes in her 30s. Does not see endocrinology, does not use an insulin pump or glucose monitor. Has PCP appointment in September 2025. Qualifiers: Diabetes mellitus complication status: without complication Qualified Code(s): E10.9 - Type 1 diabetes mellitus without complications (5) Leukocytosis: Impression: Resolved. Patient presented with leukocytosis. Afebrile. No clinical signs or symptoms of infectionno cough, fevers, chills, abdominal pain, urinary symptoms. Rust catheter was placed for close monitoring of urine output yesterday, to be removed today. Continue to monitor off antibiotics. (6) Acute kidney injury: Impression: Resolved with IV and oral hydration. Continue to trend creatinine. (7) Alcohol use: Impression: Per previous hospitalist who spoke with the family, they are uncertain about her drinking history. She has intermittent episodes of drinking alcohol, but does have some binge drinking. No signs of alcohol withdrawal at this time.
[2025-06-01] MEDS: INSULIN LISPRO 300 UNIT/3 ML PEN SUBQ SCH (16:56)
--- NOTE | 2025-06-02 10:55 | PROVIDER PROGRESS NOTE ---
Subjective Subjective Subjective: This morning, patient states that she's feeling a lot better. She denies any fevers, chills, shortness of breath, nausea, episodes of emesis. She has some pain in the left leg, just with movement. She has been medically cleared for discharge, awaiting SNF placement. Current Medications Current Medications Current Medications: Current Medications Generic Name Dose Route Start Last Admin Trade Name Freq PRN Reason Stop Dose Admin Acetaminophen 650 mg 05/29/25 19:26 06/01/25 07:53 Acetaminophen 325 Mg Tablet PO 650 mg Q4HR PRN Administration Pain 1 to 4, or Fever Albuterol/Ipratropium 3 ml 05/31/25 15:11 Ipratropium/Albuterol 3 Ml Neb INH Q4HR PRN Wheezing Calcium Carbonate/Glycine 500 mg 06/01/25 10:00 06/02/25 09:01 Calcium Carbonate Chew 500 Mg Tablet PO 500 mg BID JASON Administration Cholecalciferol 50 mcg 06/01/25 10:00 06/02/25 09:01 Cholecalciferol 25 Mcg Tablet PO 50 mcg DAILY JASON Administration Insulin Glargine-yfgn 12 unit 05/30/25 21:00 06/01/25 20:53 Insulin Glargine-Yfgn 300 Unit/3 Ml Pen SUBQ 12 unit QPM JASON Administration Insulin Human Lispro 2 - 10 unit 06/01/25 17:00 06/02/25 08:58 Insulin Lispro 300 Unit/3 Ml Pen SUBQ Not Given 0800,1200,1700,2100 [facility] Protocol Oxycodone HCl 5 mg 05/29/25 19:26 05/31/25 21:22 Oxycodone 5 Mg Tablet PO 5 mg Q4HR PRN Administration Pain 5 to 7 Sodium Chloride 10 ml 05/30/25 01:00 06/02/25 09:02 Sodium Chloride Flush 0.9% 10 Ml Syringe IVP 10 ml 0100,0900,1700 JASON Administration Sodium Chloride 10 ml 05/29/25 19:26 06/02/25 00:40 Sodium Chloride Flush 0.9% 10 Ml Syringe IVP 10 ml PRN PRN Administration NEEDED PER PROVIDER ORDERS Objective Vital Signs/Intake & Output Reviewed Vital Signs: Yes Vital Signs: Vital Signs x48h Temp Pulse Resp BP Pulse Ox 06/02/25 09:00 98.4 F 81 16 151/86 H 92 06/02/25 05:00 98.2 F 84 19 166/83 H 93 Intake & Output: Intake & Output 05/30/25 05/31/25 06/01/25 06/02/25 23:59 23:59 23:59 23:59 Intake Total 7012 / 7012 2090 / 2090 1070 / 1070 120 / 120 Output Total 565 / 565 700 / 700 550 / 550 Balance 6447 / 6447 1390 / 1390 520 / 520 120 / 120 Weight (kg) 61.5 kg 63 kg Objective General Appearance: positive No acute distress and Alert; negative Anxious Eyes Bilateral: positive Normal inspection, PERRL and EOMI ENT: positive ENT inspection nml, Pharynx nml and No signs of dehydration Neck: positive Nml inspection, Thyroid nml and No JVD Respiratory: positive Chest non-tender, No respiratory distress and Breath sounds nml; negative Wheezes, Rales or Rhonchi Cardiovascular: positive No murmur, No gallop and Tachycardia; negative Systolic murmur Abdomen: positive Non-tender, No organomegaly and No distention; negative Guarding or Splenomegaly Back: positive Nml inspection; negative CVA tenderness (R) or CVA tenderness (L) Skin: positive Color nml, No rash, Warm and Dry Extremities: positive Other (LLE in cast; toes warm to touch, able to wiggle toes ) Neurologic/Psychiatric: positive Oriented x3, Motor nml and Mood/affect nml Lab Results 06/01/25 10:32 06/01/25 10:32 Other Labs: Lab Results x24hrs 06/02/25 06/02/25 06/01/25 Range/Units 08:49 07:42 20:29 Sodium (135-145) mmol/L Potassium (3.5-4.5) mmol/L Chloride (101-111) mmol/L Carbon Dioxide (21-32) mmol/L Anion Gap (6-13) BUN (6-20) mg/dL Creatinine (0.6-1.3) mg/dL Estimated GFR (MDRD) (>89) Glucose (74-104) mg/dL POC Whole Bld Glucose 102 63 263 (70-100) mg/dL Estimat Average Glucose (70-100) mg/dL Hemoglobin A1c % (4.27-6.07) % Calcium (8.5-10.3) mg/dL 06/01/25 06/01/25 06/01/25 Range/Units 16:47 11:40 10:32 Sodium 141 (135-145) mmol/L Potassium 4.1 (3.5-4.5) mmol/L Chloride 108 (101-111) mmol/L Carbon Dioxide 25 (21-32) mmol/L Anion Gap 8.0 (6-13) BUN 19 (6-20) mg/dL Creatinine 1.0 (0.6-1.3) mg/dL Estimated GFR (MDRD) 54 L (>89) Glucose 275 H (74-104) mg/dL POC Whole Bld Glucose 203 245 (70-100) mg/dL Estimat Average Glucose 180 H (70-100) mg/dL Hemoglobin A1c % 7.9 H (4.27-6.07) % Calcium 8.6 (8.5-10.3) mg/dL Assessment/Plan Problem List (1) Fracture of tibia and fibula: Impression: Patient had mechanical fall. CT shows comminuted, mildly displaced oblique fracture of the distal tibial diaphysis. Nondisplaced oblique fracture of the distal fibula extending across the level of the syndesmosis and into the ankle mortise. Comminuted and mildly displaced fracture of the fibular head. Orthopedic surgery consulted - completed ORIF 06/01. Physical therapy consulted, reccomend SNF. Patient medically cleared for discharge. Qualifiers: Encounter type: initial encounter Fracture type: closed Laterality: l eft Qualified Code(s): S82.202A - Unspecified fracture of shaft of left tibia, initial encounter for closed fracture; S82.402A - Unspecified fracture of shaft of left fibula, initial encounter for closed fracture (2) Hyperosmolar hyperglycemic state (HHS): Impression: Resolved. Patient presented with glucose of 796, high anion gap metabolic acidosis, urine with ketones. Now resolved. Off insulin drip, completed DKA protocol/pathway. On sliding scale insulin. Likely mixed picture of HHS and DKA. May have been triggered by recent fall and fracture. Patient admits she does not recall when she last took her insulin. Typically takes 12 units of long-acting at night, and then a sliding scale depending on her carbohydrate levels. She was diagnosed with type 1 diabetes in her 30s. Does not see endocrinology, does not use an insulin pump or glucose monitor. Continue 12 units at night (home dose), and then low-dose sliding scale. Uptitrate as able. (3) Encephalopathy: Impression: Attributed to metabolic changes as above. Now resolved. Patient at baseline. Qualifiers: Encephalopathy type: unspecified encephalopathy Qualified Code(s): G 93.40 - Encephalopathy, unspecified (4) Diabetes type 1: Impression: Typically takes 12 units of long-acting at night, and then a sliding scale depending on her carbohydrate levels. She was diagnosed with type 1 diabetes in her 30s. Does not see endocrinology, does not use an insulin pump or glucose monitor. Has PCP appointment in September 2025. Qualifiers: Diabetes mellitus complication status: without complication Qualified Code(s): E10.9 - Type 1 diabetes mellitus without complications (5) Leukocytosis: Impression: Resolved. Patient presented with leukocytosis. Afebrile. No clinical signs or symptoms of infectionno cough, fevers, chills, abdominal pain, urinary symptoms. Rust catheter was placed for close monitoring of urine output yesterday, to be removed today. Continue to monitor off antibiotics. (6) Acute kidney injury: Impression: Resolved with IV and oral hydration. Continue to trend creatinine. (7) Alcohol use: Impression: Per previous hospitalist who spoke with the family, they are uncertain about her drinking history. She has intermittent episodes of drinking alcohol, but does have some binge drinking. No signs of alcohol withdrawal at this time.
--- OUTSIDE RECORDS SUMMARY | 2025-06-02 23:13 | EXTERNAL MEDICAL SUMMARY RPT | Data Portability ---
Author Organization [facility] MAIN OFFICE Address [address] [place] [id number] Assessment Encounter Date Assessment Date Assessment LastModified by Organization Details LastModified Time 03/30/2024 03/30/2024 E&M code was selected based on 20 minutes spent on the date of encounter reviewing pertinent history and previous diagnostics, performing medically appropriate examination and evaluation, ordering diagnostic tests and/or medications, counseling and education to patient/family/c aregiver, referring and communicating with other health care professions, documenting clinical information in the electronic health record, independently interpreting results and communicating results to the patient/family/c aregiver. This is excluding activities performed by clinical staff. [email or web address] Not available 03/30/2024 14:12:07 05/16/2024 05/16/2024 E/M code was selected based on 30 minutes spent on the date of encounter reviewing pertinent history and previous diagnostics, performing medically appropriate examination and evaluation, ordering diagnostic tests and/or medications, counseling and education to patient, referring and communicating with other health care professions, documenting clinical information in the electronic health record, independently interpreting results and communicating results to the patient. This is excluding activities performed by clinical staff. Not available 05/21/2024 22:50:03 06/02/2024 06/02/2024 E/M code was selected based on 30 minutes spent on the date of encounter reviewing pertinent history and previous diagnostics, performing medically appropriate examination and evaluation, ordering diagnostic tests and/or medications, counseling and education to patient, referring and communicating with other health care professions, documenting clinical information in the electronic health record, independently interpreting results and communicating results to the patient. This is excluding activities performed by clinical staff. Not available 06/07/2024 16:17:18 Plan of Treatment Reminders Order Date Submit Date Provider Last Modified By Organization Details Last Modified Time Details Appointments None recorded. Lab erythrocy te sedimenta tion rate by juan antoine method 2023 [facility] (Lab), [address] [place] [address], [id number], 4 18:09:51 inflammat ion panel, serum or plasma 2023 024 [facility] (Lab), [address] [place] [address], [id number], 4 18:10:04 uric acid, serum or plasma 2023 024 [facility] (Lab), [address] [place] [address], [id number], 4 18:10:19 Referral orthopedi c surgeon referral 2023 024 [id number] Not available 4 20:59:19 dermatolo gist referral 2023 024 [facility], [address] [place] [address], [id number], 4 18:46:06 Procedures None recorded. Surgeries None recorded. Imaging MRI, knee, w/o contrast - Rt knee pain 2023 024 [email or web address] [facility], [address] [place] [address], [address], 5 19:20:06 Medication Orders meloxicam 15 mg tablet 2023 024 [id number], [address] [place], [address], 4 18:13:06 Patient TargetsNo targets recorded. Patient Instructions Encounter Date Encounter Id Patient Instructions Last Modified By Organization Details Last Modified Time 05/16/2024 [id number] Here are the diaz instructions from today's consultation: - MRI of the knee: I have sent the order to [facility]. - Blood work for inflammation: No fasting required. - Medication for knee pain: A muscle relaxant has been prescribed and sent to [facility] in [place]. Not available 05/21/2024 22:55:16 06/02/2024 [id number] rhythm strip, EKG* - Pre- op EKG [email or web address] Not available 06/02/2024 18:15:46 Here is a summar y of the diaz instructions from our consultation: - Referral to Orthopedic: I have referred you to [facility] in [place] for further evaluation and management of your meniscal tear in the right knee. - EKG Referral: Due to concerns raised during your consultation for liposuction, I have also referred you for an EKG at [facility]. 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 [email or web address] [facility] [address] [place], [address], 05/24/2024 18:38:16 06/05/20 24 rhyth m strip , EKG No observ ation record ed. [email or web address] Not Available 19:09:08 07/05/19 25 05/24/2024 MRI, knee, w/o contr ast No observ ation record ed. [email or web address] [facility] [address] [place], [address], 07/10/2024 12:02:10 Result Notes None recorded. Problems Name Problem SNOMED Code Status Onset Date Resolution Date Notes Provider Name and Address Organization Details Recorded Time Type 1 diabetes mellitus 22898184 Active 2021 Diabetes mellitus type 1 [place] [address] [place], [address], [facility] 4 14:01:33 Viral screenin g Completed 202103/30/2024 ICD-10: Z11.59 - Special screenin g examinat ion for unspecif ied viral disease [place], [address], [facility] 4 14:01:36 Adult health examinat ion Completed 202303/30/2024 ICD-10: Z00.00 - Routine general medical examinat ion at a health care facility [place], [address], [facility] 4 14:01:38 Taking multiple medicati ons for chronic disease 96060781220 4108 Completed 202303/30/2024 Taking multiple medicati ons for chronic disease [place] [address] [place], [address], [facility] 4 14:01:41 Localize d eruption of skin 924891709 Active 2023 [place], [address], [facility] 4 14:08:14 History of malignan t neoplasm of skin 618194420 Active 2023 [place], [address], [facility] 4 14:08:01 Problem Notes None recorded. Medical Equipment None Reported. Medications Name Sig Start Date Stop Date Status Note LastModified by Organization Details LastModified Time meloxicam 15 mg tablet Take 1 tablet every day by oral route as needed. active Not Available Not Available No t Available fluorouraci l 5 % topical cream Apply to chest TWICE A DAY FOR 3 weeks then switch to Vaseline for healing active Not Available Not Available No t Available ketorolac 0.5 % eye drops Instill 1 drop into affected eye four times a day for 5 days. active Not Available Not Available No t Available betamethaso ne dipropionat e 0.05 % topical cream Apply to affected areas on left forearm twice a day for three weeks. active Not Available Not Available No t Available BD Ultra-Fine Mini Pen Needle 31 gauge x 3/16" Use one needle to inject insulin daily active Not Available Not Available No t Available chlorhexidi ne gluconate 0.12 % mouthwash USE 5 ML ON AFFECTED AREA FOR 30 SECONDS DIRECTED TWICE DAILY FOR 2 WEEKS 03/30 completed Not Available Not Available Not Available Lantus Solostar U-100 Insulin 100 unit/mL (3 mL) subcutaneou s pen inject 16 units subcutane ously daily active Not Available Not Available No t Available Humalog KwikPen (U-100) Insulin 100 unit/mL subcutaneou s inject 4-6 units subcutane ously daily active Not Available Not Available No t Available Vitals Date Recorded Body height Body temperature Heart rate Oxygen saturation Systolic And Diastolic Provider Name and Address Organization Details Last Updated DateTime 4 154.94 cm 97.2 [degF] 76 /min 98 % 129/81 mm[Hg] Jen [facility] 4 13:53:47 Date Recorded Body height Heart rate Oxygen saturation Systolic And Diastolic Provider Name and Address Organization Details Last Updated DateTime 06/02/2024 154.94 cm 82 /min 100 % 138/83 mm[Hg] [facility] 06/02/2024 18:07:27 Social History None recorded. Functional Status None recorded. Mental Status None recorded. Family History Nothing Reported. Medical History No medical history recorded. Gynecological HistoryNo gynecological history recorded. Obstetrics History GPAL:G 0 P 0 0 0 0 Past Encounters Encounter ID Performer Location Encounter Start Date Encounter Closed Date Diagnosis/Indication Diagnosis SNOMED-CT Code Diagnosis ICD10 Code Diagnosis IMO Codes Diagnosis Note [id number] Kristan Austin[place]ALLAS [place] [address] [place] [address] 03/30/2024 13:48:15 04/19/2024 11:54:08 Localized eruption of skin 670189145 R21 Non-healin g, pruritic rash noted to patient's left forearm. PMH of skin cancer. Minimal response to fluorourac il topical. DDx: eczema vs skin CA. Placed desired dermatolog y referral for evaluation . [id number] RUEL SUAREZ NP [place] [address] [place] [address] 05/16/2024 17:48:46 05/22/2024 08:52:01 Pain of right knee joint [id number] 18610 M25.561 [id number] RUEL SUAREZ NP [address] [address] 06/02/2024 18:03:06 06/12/2024 08:48:34 Acute meniscal tear, medial 456141616 S83.241D Under care of plastic surgeon [id number] Z76.89 Health Concerns Section Related Observation LastModified by Organization Detai ls LastModified Time None Recorded Concern Status LastModified by Organization Details LastModified Time None Recorded Advance Directives Directive None Recorded Payers Insurance Date Sequence Insurance Name Policy Number Policy Chi Covered Member ID Chi Member ID Guarantor Name 06/12/2024 1 [employer] - [facility] [place] (MEDICARE REPLACEMENT/ ADVANTAGE - HMO) [id number] Rylee Jimenez [id number] 04/19/2024 1 [employer] - [place] [facility] Rylee Jimenez [id number] 03/30/2024 1 [facility] (MEDICARE REPLACEMENT/ ADVANTAGE - HMO) [id number] Rylee Jimenez [id number] Notes Date Note Type Note Provider Name and Address Organization Details Recorded Time 03/30/2024 text/html ROS as noted in the HPI 74 yo female presents for derm referral Has a spot on left forearm - pt described as "scabby, itchy, aching".Red and white scaly appearance. Started approx 3 months ago.Did have this also on leg in the past. Possible similar appearance of one on the chest that now resolved. H/O precancer on chest - using fluouracil topical 5%.Has also been applying to this current scab.No known triggers - no changes to detergents/soaps or medications.Denies h/o eczema, allergies, psoriasis, asthma.Only PMH is type 1 diabetes. [place] [address] [place], [address], [facility] 03/30/2024 14:13:01 05/16/2024 text/html ROS as noted in the HPI Pt being seen today via telehealth. Patient consents to being seen via telehealth instead of in-person and has been advised that some health issues may require an in-person appointment to adequately assess, diagnose and treat. Patient is a 74 year old female who presents today with constant right knee pain for the past month, significantly impacting her mobility. She denies any trauma or injury. An MRI of the right knee and blood work for inflammation markers have been ordered, and a muscle relaxant has been prescribed for pain management. Follow-up will occur after receiving the test results. Past Medical History: DM1 PSH: [breast implants] BTL 1985 L knee surgery 2017 or Family History: fa d. 89. Had DM1 mo d. 65 metastatic throat CA 1 bro healthy. 3 sis, healthy. oldest had breast CA 3 children, healthy. Social History: smoked age 18 to early 20s + 2 glasses red wine daily no rec drugs walks daily, 30-45 mins Allergies: No Known Allergies RUEL SUAREZ NP [address] [place], [address], [facility] 05/21/2024 22:55:33 06/02/2024 text/html ROS as noted in the HPI Pt being seen today via telehealth. Patient consents to being seen via telehealth instead of in-person and has been advised that some health issues may require an in-person appointment to adequately assess, diagnose and treat. Patient is a 74 year old female who presents for discussion of MRI result of her right knee. MRI revealed a medial meniscal tear with a flap. She was advised to avoid putting too much weight on the injured knee. Additionally, she needs an EKG before proceeding with liposuction due to an abnormal pulse noted during a pre-operative consultation. Referral was made for orthopedic evaluation. Past Medical History: DM1 PSH: [breast implants] BTL 1985 L knee surgery 2018 or 19 Family History: fa d. 89. Had DM1 mo d. 65 metastatic throat CA 1 bro healthy. 3 sis, healthy. oldest had breast CA 3 children, healthy. Social History: smoked age 18 to early 20s + 2 glasses red wine daily no rec drugs walks daily, 30-45 mins Allergies: No Known Allergies RUEL SUAREZ NP [address] [place], [address], [facility] 06/07/2024 16:18:43 OBGyn Episode No OBEpisode recorded.
--- NOTE | 2025-06-03 07:57 | PROVIDER PROGRESS NOTE ---
Current Medications Current Medications Current Medications: Current Medications Generic Name Dose Route Start Last Admin Trade Name Freq PRN Reason Stop Dose Admin Acetaminophen 650 mg 05/29/25 19:26 06/01/25 07:53 Acetaminophen 325 Mg Tablet PO 650 mg Q4HR PRN Administration Pain 1 to 4, or Fever Albuterol/Ipratropium 3 ml 05/31/25 15:11 Ipratropium/Albuterol 3 Ml Neb INH Q4HR PRN Wheezing Calcium Carbonate/Glycine 500 mg 06/01/25 10:00 06/02/25 20:15 Calcium Carbonate Chew 500 Mg Tablet PO 500 mg BID JASON Administration Cholecalciferol 50 mcg 06/01/25 10:00 06/02/25 09:01 Cholecalciferol 25 Mcg Tablet PO 50 mcg DAILY JASON Administration Insulin Glargine-yfgn 12 unit 05/30/25 21:00 06/02/25 20:14 Insulin Glargine-Yfgn 300 Unit/3 Ml Pen SUBQ 12 unit QPM JASON Administration Insulin Human Lispro 2 - 10 unit 06/01/25 17:00 06/02/25 20:14 Insulin Lispro 300 Unit/3 Ml Pen SUBQ Not Given 0800,1200,1700,2100 [facility] Protocol Oxycodone HCl 5 mg 05/29/25 19:26 06/02/25 20:15 Oxycodone 5 Mg Tablet PO 5 mg Q4HR PRN Administration Pain 5 to 7 Sodium Chloride 10 ml 05/30/25 01:00 06/03/25 00:37 Sodium Chloride Flush 0.9% 10 Ml Syringe IVP 10 ml 0100,0900,1700 JASON Administration Sodium Chloride 10 ml 05/29/25 19:26 06/02/25 00:40 Sodium Chloride Flush 0.9% 10 Ml Syringe IVP 10 ml PRN PRN Administration NEEDED PER PROVIDER ORDERS Objective Vital Signs/Intake & Output Vital Signs: Vital Signs x48h Temp Pulse Resp BP Pulse Ox 06/03/25 04:55 97.7 F 80 16 133/80 H 95 06/03/25 00:39 97.9 F 81 20 145/94 H 94 Intake & Output: Intake & Output 05/31/25 06/01/25 06/02/25 06/03/25 23:59 23:59 23:59 23:59 Intake Total 2089 1070 / 1070 167 / 1670 350 / 350 Output Total 700 / 700 550 / 550 Balance 1390 / 1390 520 / 520 1670 / 1670 350 / 350 Weight (kg) 63 kg Lab Results 06/01/25 10:32 06/01/25 10:32 Other Labs: Lab Results x24hrs 06/03/25 06/02/25 06/02/25 Range/Units 07:51 20:12 16:45 POC Whole Bld Glucose 106 136 193 (70-100) mg/dL 06/02/25 06/02/25 Range/Units 11:34 08:49 POC Whole Bld Glucose 151 102 (70-100) mg/dL Assessment/Plan Problem List (1) Fracture of tibia and fibula: Qualifiers: Encounter type: initial encounter Fracture type: closed Laterality: l eft Qualified Code(s): S82.202A - Unspecified fracture of shaft of left tibia, initial encounter for closed fracture; S82.402A - Unspecified fracture of shaft of left fibula, initial encounter for closed fracture (2) Hyperosmolar hyperglycemic state (HHS): (3) Encephalopathy: Qualifiers: Encephalopathy type: unspecified encephalopathy Qualified Code(s): G 93.40 - Encephalopathy, unspecified (4) Diabetes type 1: Qualifiers: Diabetes mellitus complication status: without complication Qualified Code(s): E10.9 - Type 1 diabetes mellitus without complications (5) Leukocytosis: (6) Acute kidney injury: (7) Alcohol use:
--- NOTE | 2025-06-03 11:58 | POST OP PROGRESS NOTE ---
Subjective General Admit Date: 05/29/25 Procedure Date: 03/07/19 Post Op Days: 2279 Procedure Performed: Open reduction internal fixation of left tibia Other Other Information/Narrative: The patient states that she has been doing very well her pain is well-controlled and she has been ambulating well. She has been able to do some physical therapy and she is able to get up a couple of steps. Ortho Surgical Progress Note Problem List Problem List: Status post open reduction internal fixation left tibia Discharge Instructions: I think the patient is doing very well. She is to remain nonweightbearing and keep the splint on at all times. I will follow-up with her in about 10 days and that is when we will remove the sutures we will convert her to a fracture boot and we will probably start her on some touchdown weightbearing at that time.Do not remove the splint. And dressing Exam Exam Vital Signs: Vital Signs x48h Temp Pulse Resp BP BP Pulse Ox 06/03/25 08:07 36.6 C 106 H 17 140/80 H 95 06/03/25 04:55 36.5 C 80 16 133/80 H 95
--- NOTE | 2025-06-03 12:20 | OPERATIVE REPORT ---
Operative Report General Admit Date: 05/29/25 Procedure Data: Operation Date: 05/31/25 13:15 Proposed Procedures p ORIF LEFT TIBIA(Left) - Jim Galo DO Actual Procedures p ORIF LEFT TIBIA(Left) - Jim Galo DO Pre-Op Diagnosis: LEFT DISTAL TIBIA SHAFT FRACTURE Anesthesia Type General Case Staff Anesthesia Provider: Travis Vance Assisting Provider: Stacie Winter Rep: SIRISHA ODOM ([facility]). Case Times Into Recovery: 05/31/25 14:56 Procedure Start: 05/31/25 14:00 Procedure End: 05/31/25 14:49 Time out: 05/31/25 13:55 Implants SCREW CTX S-T 3.5X20MM SCREW CTX S-T 3.5X22MM SCREW CTX S-T 3.5X26MM EVOS 3.5X34MM CTX SCR S-T EVOS 3.5X36MM CTX SCR S-T SCREW CTX S-T 3.5X38MM PLATE 3.5 18HOLE L TIBIA Pre-Op Diagnosis: Left distal tibia extra-articular pilon fracture with intra- articular exten Post Op Diagnosis: Left distal tibia extra-articular pilon fracture with intra- articular exten Procedure Note Indications: Left distal tibia extra-articular pilon fracture with intra-articular exten Complications: None Other Other Information/Narrative: Open reduction internal fixation of a pilon fracture is a difficult case requiring retraction and assistance of a physician senior care assistant and NICOLÁS Mcneil supplied that assistance during the case. Patient was taken to the operative suite and after undergoing a general anesthetic the left lower extremity was prepped and draped in the usual sterile fashion we did first go ahead and aligned the fracture up under physician guided fluoroscopy and we chose the correct size plate before making the incision. We then went ahead and made 2 incisions both were about 3 cm in length 1 proximal to the fracture 1 distal to the fracture and the plate was slid subcutaneously in the anterior medial side and we went ahead and used the pelvic reduction clamps distally to reduce the plate to the bone and then we secured them in place with 3 bicortical screws. We then went proximally and we used 1 lag screw to bring the plate in to the bone and reduced the fracture more and it looked excellent under physician guided fluoroscopy so then we secured the proximal 3 bicortical screws. We took final x-rays and was found to be in excellent alignment we did an irrigation and closed the The Subcutaneous with 2-0 Vicryl the skin was closed with tk a sterile dressing and splint were applied and the patient was awakened and transferred stable to recovery room
[2025-06-03 13:59] VITALS: BP 140/79; TEMP 98.1; O2SAT 98
== END 2025-06-03 13:59 | disposition home or self-care (01) | DRG 492 ==
LOC: ED 16:42 → ICU 18:44 → MS3 06-01 18:26
PROVIDERS: ADMIT Student in an Organized Health Care Education/Training Program; ATTEND Student in an Organized Health Care Education/Training Program
DX: S00.03XA Contusion of scalp, initial encounter; E10.69 Type 1 diabetes mellitus with other specified complication; Z87.891 Personal history of nicotine dependence; S82.832A Other fracture of upper and lower end of left fibula, initial encounter for closed fracture; E87.0 Hyperosmolality and hypernatremia; R00.0 Tachycardia, unspecified; E87.5 Hyperkalemia; D72.829 Elevated white blood cell count, unspecified; I95.9 Hypotension, unspecified; I44.4 Left anterior fascicular block; R29.6 Repeated falls; S82.872A Displaced pilon fracture of left tibia, initial encounter for closed fracture; N17.9 Acute kidney failure, unspecified; E10.10 Type 1 diabetes mellitus with ketoacidosis without coma; M81.0 Age-related osteoporosis without current pathological fracture; W19.XXXA Unspecified fall, initial encounter; G93.40 Encephalopathy, unspecified; Z79.4 Long term (current) use of insulin; E78.5 Hyperlipidemia, unspecified